=== PATIENT | male | born 1945 | race Caucasian/White ===

== ENCOUNTER 2017-09-15 12:04 | Inpatient (IN) | payer MEDICARE ==
[2017-09-15] MEDS ORDERED: NORMAL SALINE 1000 ML 1,000 ML IV ONE (12:20)
--- NOTE | 2017-09-15 12:21 | ER Document Report ---
ED General - General Stated Complaint: FALL LEG PAIN Time Seen by Provider: 09/15/17 12:18 - HPI Patient complains to provider of: weakness Notes: 72-year-old man states he fell last evening as an apartment was unable to get up. Patient laid on the ground from 10 PM to 11 AM this morning. Patient is covered in feces on arrival. Patient answering questions appropriately just says he is very dry and dehydrated this time. Has been suffering from weakness since June. Seen multiple times by his family doctor. Denies fever chills or other symptoms. - Related Data Allergies/Adverse Reactions: nystatin [Nystatin] Allergy (Verified 07/21/11 22:09) Past Medical History - Social History Smoking Status: Unknown if Ever Smoked Family History: Reviewed & Not Pertinent - Past Medical History Cardiac Medical History: Reports: Hx Coronary Artery Disease, Hx Heart Attack - 2005, Hx Hypercholesterolemia, Hx Hypertension Pulmonary Medical History: Reports: Hx Bronchitis, Hx Pneumonia GI Medical History: Reports: Hx Hiatal Hernia Musculoskeltal Medical History: Reports Hx Arthritis Psychiatric Medical History: Reports: Hx Depression Past Surgical History: Reports: Hx Cardiac Surgery - Quad Bypass, Hx Coronary Artery Bypass Graft, Hx Herniorrhaphy. Denies: Hx Pacemaker - Immunizations Hx Diphtheria, Pertussis, Tetanus Vaccination: Yes Review of Systems - Review of Systems Constitutional: Weakness EENT: No symptoms reported Cardiovascular: No symptoms reported Respiratory: No symptoms reported Gastrointestinal: No symptoms reported Genitourinary: No symptoms reported Male Genitourinary: No symptoms reported Musculoskeletal: No symptoms reported Skin: No symptoms reported Hematologic/Lymphatic: No symptoms reported Neurological/Psychological: No symptoms reported Physical Exam - Vital signs Interpretation: Normal - General General appearance: Appears well, Alert - HEENT Head: Normocephalic, Atraumatic Eyes: Normal Pupils: PERRL - Respiratory Respiratory status: No respiratory distress Chest status: Nontender Breath sounds: Normal Chest palpation: Normal - Cardiovascular Rhythm: Regular Heart sounds: Normal auscultation Murmur: No - Abdominal Inspection: Normal Distension: No distension Bowel sounds: Normal Tenderness: Nontender Organomegaly: No organomegaly - Back Back: Normal, Nontender - Extremities General upper extremity: Normal inspection, Nontender, Normal color, Normal ROM , Normal temperature General lower extremity: Normal inspection, Nontender, Normal color, Normal ROM , Normal temperature, Normal weight bearing. No: Leena's sign - Neurological Neuro grossly intact: Yes Cognition: Normal Orientation: AAOx4 Nikhil Coma Scale Eye Opening: Spontaneous Nikhil Coma Scale Verbal: Oriented Nikhil Coma Scale Motor: Obeys Commands Morning Sun Coma Scale Total: 15 Speech: Normal Motor strength normal: LUE, RUE, LLE, RLE Sensory: Normal - Psychological Associated symptoms: Normal affect, Normal mood - Skin Skin Temperature: Warm Skin Moisture: Dry Skin Color: Normal Course - Re-evaluation Re-evalutation: 09/15/17 12:58 Unfortunate elderly man presents after falling at home. Unable to get up. Patient profoundly tachycardic. Multiple labs drawn at this time, fluid resuscitation started in the emergency department. 09/15/17 17:42 Patient was just inpatient at an outside hospital for 6 days discharge 2 days ago. Since then patient has been very weak. Patient states he was not sent to a rehab center he was sent home. Patient lives at home alone. Does not have anywhere else he can go. Patient laid on the floor last evening for 10 hours was covered in feces this morning. Happily patient's CPK is normal, kidney function normal. Patient has given breathing treatment department. Patient has a troponin that seems mildly elevated but is near his baseline recheck is no elevation. Patient denies any chest pain or shortness of breath. Patient's EKG is no ischemic changes. Patient was admitted to the hospital for the management possible placement. - Laboratory Result Diagrams: 09/15/17 14:55 09/15/17 13:31 Laboratory results interpreted by me: 09/15/17 09/15/17 09/15/17 13:00 13:31 13:31 WBC Seg Neuts % (Manual) Band Neutrophils % Lymphocytes % (Manual) Metamyelocytes % Abs Neuts (Manual) Sodium 135.5 L BUN 24 H Glucose 323 H Ammonia < 8.7 L Creatine Kinase 187 H Albumin 3.3 L Urine Glucose (UA) >=500 H Urine Ketones 20 H Urine Blood SMALL H 09/15/17 14:55 WBC 23.6 H Seg Neuts % (Manual) 81 H Band Neutrophils % 2 L Lymphocytes % (Manual) 10 L Metamyelocytes % 2 H Abs Neuts (Manual) 20.1 H Sodium BUN Glucose Ammonia Creatine Kinase Albumin Urine Glucose (UA) Urine Ketones Urine Blood Discharge - Discharge Clinical Impression: Failure to thrive Qualifiers: Failure to thrive age range: in adult Qualified Code(s): R62.7 - Adult failure to thrive Condition: Stable Disposition: ADMITTED INPATIENT Admitting Provider: Hospitalist - [facility] Admitted: Telemetry
[2017-09-15] MEDS ORDERED: DEXTROSE 5%-NORMAL SALINE 1,000 ML IV ONE (12:59)
--- NOTE | 2017-09-15 13:52 | RADIOLOGY REPORT (SQ) ---
EXAM DESCRIPTION: CHEST SINGLE VIEW COMPLETED DATE/TIME: 09/15/2017 1:09 pm REASON FOR STUDY: ams COMPARISON: July 2011 EXAM PARAMETERS: NUMBER OF VIEWS: One view. TECHNIQUE: Single frontal radiographic view of the chest acquired. RADIATION DOSE: NA LIMITATIONS: None. FINDINGS: LUNGS AND PLEURA: No opacities, masses or pneumothorax. No pleural effusion. Again there is evidence for obstructive lung disease. MEDIASTINUM AND HILAR STRUCTURES: No masses. Contour normal. HEART AND VASCULAR STRUCTURES: Heart normal in size. Normal vasculature. BONES: No acute findings. HARDWARE: Patient is status post median sternotomy. OTHER: No other significant finding. IMPRESSION: No significant interval change. No acute findings. Obstructive lung disease. Other fi ndings as noted above TECHNICAL DOCUMENTATION: JOB ID: [id number] [employer]- All Rights Reserved
[2017-09-15 14:06] LABS: ALANINE AMINOTRANSFERASE 46 U/L (21-72); ALBUMIN 3.3 g/dL (3.5-5.0); ALKALINE PHOSPHATASE 108 U/L (38-126); ANION GAP 11 (5-19); ASPARTATE AMINO TRANSFERASE 29 U/L (17-59); BILIRUBIN,DIRECT 0.4 mg/dL (0.0-0.4); BILIRUBIN,TOTAL 1.2 mg/dL (0.2-1.3); BLOOD UREA NITROGEN 24 mg/dL (7-20); CALCIUM 9.6 mg/dL (8.4-10.2); CARBON DIOXIDE 23 mmol/L (22-30); CHLORIDE 102 mmol/L (98-107); CREATINE KINASE 187 U/L (55-170); GLUCOSE 323 mg/dL (75-110); POTASSIUM 4.5 mmol/L (3.6-5.0); SODIUM 135.5 mmol/L (137-145); TOTAL PROTEIN 6.3 g/dL (6.3-8.2)
[2017-09-15 14:44] LABS: APPEARANCE,URINE CLEAR; BILIRUBIN,URINE NEGATIVE (NEGATIVE); COLOR,URINE YELLOW; GLUCOSE, URINE >=500 mg/dL (NEGATIVE); KETONES,URINE 20 mg/dL (NEGATIVE); LEUKOCYTE ESTERASE,URINE NEGATIVE (NEGATIVE); NITRITE,URINE NEGATIVE (NEGATIVE); PROTEIN,URINE NEGATIVE (NEGATIVE); URINE SPECIFIC GRAVITY 1.036; UROBILINOGEN,URINE NEGATIVE mg/dL (<2.0)
[2017-09-15 15:06] LABS: HEMATOCRIT 43.4 % (37.9-51.0); HEMOGLOBIN 14.5 g/dL (13.5-17.0); MEAN CORPUSCULAR HEMOGLOBIN 31.5 pg (27.0-33.4); MEAN CORPUSCULAR HGB CONC 33.5 g/dL (32.0-36.0); MEAN CORPUSCULAR VOLUME 94 fl (80-97); PLATELET COUNT 295 10^3/uL (150-450); RED BLOOD COUNT 4.62 10^6/uL (4.35-5.55); RED CELL DISTRIBUTION WIDTH 12.9 % (11.5-14.0); WHITE BLOOD COUNT 23.6 10^3/uL (4.0-10.5)
[2017-09-15] MEDS ORDERED: IPRATROPIUM/ALBUTEROL 0.5-2.5 MG/3 ML AMPUL NEB ONE (15:13)
[2017-09-15 15:25] LABS: ABSOLUTE LYMPHOCYTES# (MANUAL) 2.6 10^3/uL (0.5-4.7); ABSOLUTE MONOCYTES # (MANUAL) 0.9 10^3/uL (0.1-1.4); ABSOLUTE NEUTROPHILS# (MANUAL) 20.1 10^3/uL (1.7-8.2); BAND NEUTROPHILS % (MANUAL) 2 % (3-5); BASOPHILS % (MANUAL) 0 % (0-2); EOSINOPHILS % (MANUAL) 0 % (0-6); LYMPHOCYTES % (MANUAL) 10 % (13-45); METAMYELOCYTES % (MANUAL) 2 % (0); MONOCYTES % (MANUAL) 4 % (3-13); PLATELET COMMENT ADEQUATE; POLYCHROMASIA SLIGHT; SEGMENTED NEUTROPHILS % (MAN) 81 % (42-78); TOTAL CELLS COUNTED 100; TOXIC GRANULATION 1+
[2017-09-15 17:48] LABS: A TYPE INFLUENZA AG NEGATIVE (NEGATIVE); B INFLUENZA AG NEGATIVE (NEGATIVE)
[2017-09-15] MEDS ORDERED: ONDANSETRON HCL INJ/PF 4 MG/2 ML SDV IV PRN (18:57)
[2017-09-15] MEDS ORDERED: RINGERS SOLUTION,LACTATED 1,000 ML IV PRN (19:15)
[2017-09-15] MEDS ORDERED: DEXTROSE 50%-WATER 25 GM/50 ML DISP.SYRIN IV PRN ×2 (19:22)
[2017-09-15] MEDS ORDERED: DEXTROSE 40% GEL 15 GM TUBE PO PRN ×2 (19:22)
[2017-09-15] MEDS ORDERED: GLUCAGON,HUMAN RECOMB 1 MG INJ IM PRN (19:22)
--- NOTE | 2017-09-15 19:49 | PDOC H&P ---
History of Present Illness Admission Date/PCP: 09/15/17 17:56 Patient complains of: Weakness found down at home. History of Present Illness: NELY WILLARD is a 72 year old male presents from home after being found down by family members. Patient states he got up to go use the restroom when he became very weak and his legs gave out. Patient states that he laid on the floor from 10:00 until he was found the next following day. Patient reports that he was recently discharged from hospital on Wednesday and since then has been weak. ER reports that patient's sister states that she is not able to care for patient. Patient reports that he does not have a sister that lives close by that is seeing him. There was no one present in the room to confirm either story. Patient reports that he is currently on antibiotics and has been on steroids as well. Patient states that his breathing is at its baseline. Past Medical History Cardiac Medical History: Reports: Congestive Heart Failure, Coronary Artery Disease, Myocardial Infarction - 2006, Hyperlipidema, Hypertension Pulmonary Medical History: Reports: Bronchitis, Chronic Obstructive Pulmonary Disease (COPD), Pneumonia GI Medical History: Reports: Hiatal Hernia Musculoskeltal Medical History: Reports: Arthritis Psychiatric Medical History: Reports: Depression Past Surgical History Past Surgical History: Reports: Coronary Artery Bypass Graft, Herniorrhaphy Denies: Pacemaker Social History Information Source: Patient Lives with: Alone Smoking Status: Unknown if Ever Smoked Frequency of Alcohol Use: None Hx Recreational Drug Use: No Hx Prescription Drug Abuse: No - Advance Directive Resuscitation Status: Full Code Family History Family History: Reviewed & Not Pertinent Parental Family History Reviewed: Yes Children Family History Reviewed: Yes Sibling(s) Family History Reviewed.: Yes Medication/Allergy Allergies/Adverse Reactions: nystatin [Nystatin] Allergy (Verified 07/21/11 22:09) Review of Systems Constitutional: PRESENT: fatigue, weakness Eyes: ABSENT: visual disturbances Ears: ABSENT: hearing changes Cardiovascular: ABSENT: chest pain, dyspnea on exertion, edema, orthropnea, palpitations Respiratory: ABSENT: cough, hemoptysis Gastrointestinal: ABSENT: abdominal pain, constipation, diarrhea, hematemesis, hematochezia, nausea, vomiting Genitourinary: ABSENT: dysuria, hematuria Musculoskeletal: PRESENT: muscle weakness. ABSENT: joint swelling Integumentary: ABSENT: rash, wounds Neurological: ABSENT: abnormal gait, abnormal speech, confusion, dizziness, focal weakness, syncope Psychiatric: ABSENT: anxiety, depression, homidical ideation, suicidal ideation Endocrine: ABSENT: cold intolerance, heat intolerance, polydipsia, polyuria Hematologic/Lymphatic: ABSENT: easy bleeding, easy bruising Physical Exam Vital Signs: Temp Pulse Resp BP Pulse Ox 18 139/87 H 94 09/15/17 19:01 09/15/17 19:01 09/15/17 19:01 General appearance: PRESENT: mild distress, well-developed, well-nourished Head exam: PRESENT: atraumatic, normocephalic Eye exam: PRESENT: conjunctiva pink, EOMI. ABSENT: scleral icterus Ear exam: PRESENT: normal external ear exam Mouth exam: PRESENT: moist, tongue midline Neck exam: ABSENT: carotid bruit, JVD, lymphadenopathy, thyromegaly Respiratory exam: PRESENT: clear to auscultation kimmie, wheezes - Wheezing. ABSENT: rales, rhonchi Cardiovascular exam: PRESENT: RRR. ABSENT: diastolic murmur, rubs, systolic murmur Pulses: PRESENT: normal dorsalis pedis pul Vascular exam: PRESENT: normal capillary refill GI/Abdominal exam: PRESENT: normal bowel sounds, soft. ABSENT: distended, guarding, mass, organolmegaly, rebound, tenderness Rectal exam: PRESENT: deferred Extremities exam: PRESENT: other - Lower extremity strength 3 out of 5 upper extremity strength 4 out of 5. ABSENT: calf tenderness, clubbing, pedal edema Neurological exam: PRESENT: alert, awake, oriented to person, oriented to place , oriented to time, oriented to situation, CN II-XII grossly intact. ABSENT: motor sensory deficit Psychiatric exam: PRESENT: appropriate affect, normal mood. ABSENT: homicidal ideation, suicidal ideation Skin exam: PRESENT: dry, intact, warm. ABSENT: cyanosis, rash Results Impressions: Chest X-Ray 09/15/17 12:20 IMPRESSION: No significant interval change. No acute findings. Obstructive lung disease. Other findings as noted above Assessment & Plan - Diagnosis (1) Debility Is this a current diagnosis for this admission?: Yes Plan: PT OT evaluation (2) Falls Is this a current diagnosis for this admission?: Yes Plan: We will have patient work with PT OT. Have place consult for social workers to work on rehab placement. Check CT of head to make sure there is no intracranial bleed (3) Leukocytosis Is this a current diagnosis for this admission?: Yes Plan: Secondary to steroids: We will monitor patient closely for signs of infection. Patient recently on steroids for COPD exacerbation. Will assess patient during hospital stay to see if patient still needs additional steroids or antibiotics. (4) Hyponatremia Is this a current diagnosis for this admission?: Yes Plan: Likely secondary to dehydration: We will place patient on IV fluids running at 75 cc an hour. Will monitor patient closely for CHF exacerbation. (5) Diarrhea Is this a current diagnosis for this admission?: Yes Plan: We will check C. difficile. (6) Elevated troponin Is this a current diagnosis for this admission?: Yes Plan: We will check 2D echo. Will continue to trend patient's troponins. Patient currently not complaining of chest pain. Will consult cardiology to evaluate patient. (7) DM type 2 (diabetes mellitus, type 2) Is this a current diagnosis for this admission?: Yes Plan: We will check hemoglobin A1c. Will place patient on sliding scale insulin. We will try to obtain patient's home medications. - Time Time Spent: 30 to 50 Minutes
--- NOTE | 2017-09-15 20:43 | RADIOLOGY REPORT (SQ) ---
EXAM DESCRIPTION: CT HEAD WITHOUT COMPLETED DATE/TIME: 09/15/2017 8:17 pm REASON FOR STUDY: Fall COMPARISON: None. TECHNIQUE: Axial images acquired through the brain without intravenous contrast. Images reviewed wi th bone, brain and subdural windows. Images stored on PACS. All CT scanners at this facility use dose modulation, iterative reconstruction, and/or weight based d osing when appropriate to reduce radiation dose to as low as reasonably achievable (ALARA). [facility]: Dose Right [facility]: CareDose [facility]: Dose Right [facility]: Teradose 4D [facility]: OmegaGenesis RADIATION DOSE: CT Rad equipment meets quality standard of care and radiation dose reduction techniq ues were employed. CTDIvol: 64.6 mGy. DLP: 1163 mGy-cm. mGy. LIMITATIONS: None. FINDINGS: VENTRICLES: Normal size and contour. CEREBRUM: No masses. No hemorrhage. No midline shift. No evidence for acute infarction. Normal gra y/white matter differentiation. No areas of low density in the white matter. CEREBELLUM: No masses. No hemorrhage. No alteration of density. No evidence for acute infarction. EXTRAAXIAL SPACES: No fluid collections. No masses. ORBITS AND GLOBE: No intra- or extraconal masses. Normal contour of globe without masses. CALVARIUM: No fracture. PARANASAL SINUSES: No fluid or mucosal thickening. SOFT TISSUES: No mass or hematoma. OTHER: No other significant finding. IMPRESSION: NORMAL BRAIN CT WITHOUT CONTRAST. EVIDENCE OF ACUTE STROKE: NO. COMMENT: Quality ID # [id number]: Final reports with documentation of one or more dose reduction techniques (e.g., Automated exposure control, adjustment of the mA and/or kV according to patient size, use of iterative reconstruction technique) TECHNICAL DOCUMENTATION: JOB ID: [id number] [employer]- All Rights Reserved
[2017-09-15] MEDS: IPRATROPIUM/ALBUTEROL 0.5-2.5 MG/3 ML AMPUL NEB SCH (21:19)
--- NOTE | 2017-09-15 21:26 | EKG REPORT ---
SEVERITY:- ABNORMAL ECG - SINUS TACHYCARDIA VENTRICULAR PREMATURE COMPLEX PROBABLE LEFT ATRIAL ABNORMALITY RIGHT BUNDLE BRANCH BLOCK PROBABLE ANTEROSEPTAL INFARCT, AGE INDETERM : Confirmed by: Marilyn Pereira 15-Sep-2017 21:25:27
[2017-09-15] MEDS ORDERED: ASPIRIN 325 MG TABLET PO ONE (21:52)
[2017-09-15] MEDS ORDERED: LANSOPRAZOLE 30 MG TAB.RAP.DR PO ONE (21:52)
[2017-09-15] MEDS: INSULIN LISPRO 100 UNIT/ML 3 ML VIAL SUBCUT PRN ×2 (22:24→23:47)
[2017-09-15] MEDS: ATORVASTATIN CALCIUM 40 MG TABLET PO SCH (22:27)
[2017-09-15] MEDS: METOPROLOL SUCCINATE 25 MG TAB.SR.24H PO SCH (22:27)
[2017-09-15] MEDS: RANOLAZINE 500 MG TAB.SR.12H PO SCH (22:28)
[2017-09-16 02:49] LABS: APPEARANCE,URINE CLEAR; BILIRUBIN,URINE NEGATIVE (NEGATIVE); COLOR,URINE YELLOW; GLUCOSE, URINE >=500 mg/dL (NEGATIVE); KETONES,URINE TRACE mg/dL (NEGATIVE); LEUKOCYTE ESTERASE,URINE NEGATIVE (NEGATIVE); NITRITE,URINE NEGATIVE (NEGATIVE); PROTEIN,URINE NEGATIVE (NEGATIVE); URINE SPECIFIC GRAVITY 1.033; UROBILINOGEN,URINE NEGATIVE mg/dL (<2.0)
[2017-09-16] MEDS: IPRATROPIUM/ALBUTEROL 0.5-2.5 MG/3 ML AMPUL NEB SCH ×3 (08:45→19:28)
--- NOTE | 2017-09-16 09:19 | EKG REPORT ---
SEVERITY:- ABNORMAL ECG - SINUS RHYTHM RIGHT BUNDLE BRANCH BLOCK : Confirmed by: Marilyn Pereira 16-Sep-2017 09:18:52
[2017-09-16 09:29] LABS: ABSOLUTE BASOPHILS # (AUTO) 0.1 10^3/uL (0.0-0.2); ABSOLUTE LYMPHOCYTES (AUTO) 2.4 10^3/uL (0.5-4.7); ABSOLUTE MONOCYTES (AUTO) 1.3 10^3/uL (0.1-1.4); ABSOLUTE NEUT (AUTO) 14.8 10^3/uL (1.7-8.2); BASOPHILS % (AUTO) 0.3 % (0-2); EOSINOPHILS % (AUTO) 0.1 % (0-6); HEMATOCRIT 40.8 % (37.9-51.0); HEMOGLOBIN 13.7 g/dL (13.5-17.0); LYMPHOCYTES % (AUTO) 12.9 % (13-45); MEAN CORPUSCULAR HEMOGLOBIN 31.6 pg (27.0-33.4); MEAN CORPUSCULAR HGB CONC 33.7 g/dL (32.0-36.0); MEAN CORPUSCULAR VOLUME 94 fl (80-97); PLATELET COUNT 224 10^3/uL (150-450); RED BLOOD COUNT 4.34 10^6/uL (4.35-5.55); RED CELL DISTRIBUTION WIDTH 13.1 % (11.5-14.0); SEGMENTED NEUTROPHILS % (AUTO) 79.7 % (42-78); TOTAL CELLS COUNTED % (AUTO) 100 %; WHITE BLOOD COUNT 18.5 10^3/uL (4.0-10.5)
[2017-09-16 09:53] LABS: ALANINE AMINOTRANSFERASE 48 U/L (21-72); ALBUMIN 2.6 g/dL (3.5-5.0); ALKALINE PHOSPHATASE 64 U/L (38-126); ANION GAP 6 (5-19); ASPARTATE AMINO TRANSFERASE 40 U/L (17-59); BILIRUBIN,DIRECT 0.4 mg/dL (0.0-0.4); BILIRUBIN,TOTAL 1.2 mg/dL (0.2-1.3); BLOOD UREA NITROGEN 19 mg/dL (7-20); CALCIUM 8.7 mg/dL (8.4-10.2); CARBON DIOXIDE 24 mmol/L (22-30); CHLORIDE 103 mmol/L (98-107); CREATINE KINASE 271 U/L (55-170); GLUCOSE 178 mg/dL (75-110); POTASSIUM 4.1 mmol/L (3.6-5.0); SODIUM 133.2 mmol/L (137-145); TOTAL PROTEIN 5.2 g/dL (6.3-8.2)
[2017-09-16] MEDS: METOPROLOL SUCCINATE 25 MG TAB.SR.24H PO SCH ×2 (10:20→21:39)
[2017-09-16] MEDS: RANOLAZINE 500 MG TAB.SR.12H PO SCH ×2 (10:21→21:39)
[2017-09-16] MEDS: ASPIRIN 81 MG TABLET, ENT COATED PO SCH (10:21)
[2017-09-16] MEDS: ACETAMINOPHEN 325 MG TABLET PO PRN ×2 (10:22→20:31)
[2017-09-16] MEDS ORDERED: VANCOMYCIN HCL 0 MG in DEXTROSE 5%-WATER 250 ML IV NR (10:30)
[2017-09-16] MEDS: INSULIN LISPRO 100 UNIT/ML 3 ML VIAL SUBCUT PRN ×3 (12:16→21:40)
--- NOTE | 2017-09-16 12:47 | PDOC PROGRESS REPORT ---
Subjective Progress Note for:: 09/16/17 Subjective:: She states that he is feeling a little better today. Patient states that he is not having problems with breathing. Reason For Visit: DEBILITY,CHRONIC COPD,LEUKOCYTOSIS Physical Exam Vital Signs: Temp Pulse Resp BP Pulse Ox 98.3 F 94 16 125/62 97 09/16/17 07:57 09/16/17 07:57 09/16/17 07:57 09/16/17 07:57 09/16/17 07:57 Intake & Output 09/15/17 09/16/17 09/17/17 06:59 06:59 06:59 Intake Total 1000 Output Total 300 Balance 700 Weight 106.3 kg General appearance: PRESENT: no acute distress, well-developed, well-nourished Head exam: PRESENT: atraumatic, normocephalic Eye exam: PRESENT: conjunctiva pink, EOMI. ABSENT: scleral icterus Ear exam: PRESENT: normal external ear exam Mouth exam: PRESENT: moist, tongue midline Neck exam: ABSENT: carotid bruit, JVD, lymphadenopathy, thyromegaly Respiratory exam: PRESENT: other - Upper airway noise, no wheezing heard no prolonged expiratory phase appreciated no accessory muscle use Cardiovascular exam: PRESENT: tachycardia. ABSENT: diastolic murmur, rubs, systolic murmur Pulses: PRESENT: normal dorsalis pedis pul Vascular exam: PRESENT: normal capillary refill GI/Abdominal exam: PRESENT: normal bowel sounds, soft. ABSENT: distended, guarding, mass, organolmegaly, rebound, tenderness Rectal exam: PRESENT: deferred Extremities exam: ABSENT: calf tenderness, clubbing, pedal edema Neurological exam: PRESENT: alert, awake, oriented to person, oriented to place , oriented to time, oriented to situation, CN II-XII grossly intact. ABSENT: motor sensory deficit Psychiatric exam: PRESENT: appropriate affect, normal mood. ABSENT: homicidal ideation, suicidal ideation Skin exam: PRESENT: dry, intact, warm. ABSENT: cyanosis, rash Results Laboratory Results: 09/16/17 09:09 09/16/17 09:09 09/15/17 09/16/17 09/16/17 22:55 09:09 09:09 WBC 18.5 H RBC 4.34 L Hgb 13.7 Hct 40.8 MCV 94 MCH 31.6 MCHC 33.7 RDW 13.1 Plt Count 224 Seg Neutrophils % 79.7 H Lymphocytes % 12.9 L Monocytes % 7.0 Eosinophils % 0.1 Basophils % 0.3 Absolute Neutrophils 14.8 H Absolute Lymphocytes 2.4 Absolute Monocytes 1.3 Absolute Eosinophils 0.0 Absolute Basophils 0.1 Sodium 133.2 L Potassium 4.1 Chloride 103 Carbon Dioxide 24 Anion Gap 6 BUN 19 Creatinine 0.85 Est GFR ( Amer) > 60 Est GFR (Non-Af Amer) > 60 Glucose 178 H Calcium 8.7 Magnesium 1.5 L Total Bilirubin 1.2 AST 40 ALT 48 Alkaline Phosphatase 64 Total Protein 5.2 L Albumin 2.6 L Urine Color YELLOW Urine Appearance CLEAR Urine pH 5.0 Ur Specific [place] 1.033 Urine Protein NEGATIVE Urine Glucose (UA) >=500 H Urine Ketones TRACE H Urine Blood SMALL H Urine Nitrite NEGATIVE Ur Leukocyte Esterase NEGATIVE Urine WBC (Auto) 3 Urine RBC (Auto) 0 09/15/17 09/16/17 09/16/17 19:42 01:44 09:09 Creatine Kinase Troponin I 0.301 0.279 0.166 09/16/17 09:09 Creatine Kinase 271 H Troponin I Impressions: Head CT 09/15/17 00:00 IMPRESSION: NORMAL BRAIN CT WITHOUT CONTRAST. EVIDENCE OF ACUTE STROKE: NO. Chest X-Ray 09/15/17 12:20 IMPRESSION: No significant interval change. No acute findings. Obstructive lung disease. Other findings as noted above Assessment & Plan - Diagnosis (1) Concern for sepsis Is this a current diagnosis for this admission?: Yes Plan: Gram Positive Cocci in Clusters: Will place pt on Vancomycin. 2 D Echo ordered. (2) Debility Is this a current diagnosis for this admission?: Yes Plan: PT OT evaluation (3) Falls Is this a current diagnosis for this admission?: Yes Plan: We will have patient work with PT OT (4) Leukocytosis Is this a current diagnosis for this admission?: Yes Plan: Patient currently with evidence of bacteremia: Repeat blood cultures have been ordered patient's placed on vancomycin. We will continue to monitor (5) Hyponatremia Is this a current diagnosis for this admission?: Yes Plan: Likely secondary to dehydration and Hyperglycemia: Improving. (6) Diarrhea Is this a current diagnosis for this admission?: Yes Plan: C. difficile is pending. He reports the patient has not had any further episodes of diarrhea.. (7) DM type 2 (diabetes mellitus, type 2) Is this a current diagnosis for this admission?: Yes Plan: Hemoglobin A1c of 11.7. SSI and will place on Lantus 25 units SQ AM. (8) Non-STEMI (non-ST elevated myocardial infarction) Is this a current diagnosis for this admission?: Yes Plan: In setting of sepsis: 2D echo pending. Patient's troponins are trending down. Cardiology is aware and following patient. (9) Hypomagnesemia Is this a current diagnosis for this admission?: Yes Plan: Magnesium replacement. Will check Mag in am - Time Time Spent with patient: 25-34 minutes
--- NOTE | 2017-09-16 12:58 | PDOC CONSULTATION ---
Consultation Consult Date: 09/15/17 Attending physician:: EL PEAÑ Consult reason:: near syncope History of Present Illness Admission Date/PCP: 09/15/17 17:56 Patient complains of: Generalized weakness and fall History of Present Illness: NELY WILLARD is a 72 year old male presents from home after being found down by family members. Patient states he got up to go use the restroom when he became very weak and his legs gave out. Patient states that he laid on the floor from 10:00 until he was found the next following day. Patient reports that he was recently discharged from hospital on Wednesday and since then has been weak. ER reports that patient's sister states that she is not able to care for patient. Patient reports that he does not have a sister that lives close by that is seeing him. There was no one present in the room to confirm either story. Patient reports that he is currently on antibiotics and has been on steroids as well. Patient states that his breathing is at its baseline. This history was reviewed and confirmed. Patient on repeated questioning denied any chest pain but does complain of some back pain. Patient has prior history of myocardial infarction and congestive heart failure. He does claim that he was recently discharged from the hospital and since then been very weak. Patient denied any actual loss of consciousness but felt because of generalized weakness. Patient denied any associated nausea vomiting, diaphoresis or sustained palpitations. Past Medical History Cardiac Medical History: Reports: Congestive Heart Failure, Coronary Artery Disease, Myocardial Infarction - 2005, Hyperlipidema, Hypertension Pulmonary Medical History: Reports: Bronchitis, Chronic Obstructive Pulmonary Disease (COPD), Pneumonia GI Medical History: Reports: Hiatal Hernia Musculoskeltal Medical History: Reports: Arthritis Psychiatric Medical History: Reports: Depression Past Surgical History Past Surgical History: Reports: Coronary Artery Bypass Graft, Herniorrhaphy Denies: Pacemaker Social History Information Source: Patient Lives with: Alone Smoking Status: Unknown if Ever Smoked Frequency of Alcohol Use: None Hx Recreational Drug Use: No Hx Prescription Drug Abuse: No - Advance Directive Resuscitation Status: Full Code Surrogate healthcare decision maker:: Patient's children are the surrogate decision maker Family History Family History: CAD, Hypertension Parental Family History Reviewed: Yes Children Family History Reviewed: Yes Sibling(s) Family History Reviewed.: Yes Medication/Allergy Home Medications: Albuterol Sulfate [Proair Respiclick] 90 mcg IH PRN PRN 09/16/17 Albuterol Sulfate [Proventil Hfa] 2 puff IH QIDP PRN 09/16/17 Albuterol Sulfate [Ventolin 0.083% Neb 2.5 mg/3 ml Ampul] 1 vial NEB PRN PRN 03/26 Apixaban [Eliquis] 5 mg PO DAILY 09/16/17 Atorvastatin Calcium [Lipitor 80 mg Tablet] 40 mg PO QHS 09/16/17 Clopidogrel Bisulfate [Plavix 75 mg Tablet] 75 mg PO DAILY 09/16/17 Fluticasone Propionate [Flonase Nasal [place] 50 Mcg/[place] 16 gm] 1 spray NASL DAILYP PRN 09/16/17 Glipizide [Glocotrol 5 Mg Tablet] 5 mg PO BID 09/16/17 Guaifenesin [Mucinex] 400 mg PO QID 09/16/17 Hydrochlorothiazide [Hydrodiuril 25 mg Tablet] 25 mg PO DAILY 09/16/17 Insulin Detemir [Levemir Flextouch] 25 unit SQ QHS 09/16/17 Lisinopril [Prinivil 40 mg Tablet] 40 mg PO DAILY 09/16/17 Metoprolol Tartrate [Lopressor 50 mg Tablet] 50 mg PO Q12 09/16/17 Polyethylene Glycol 3350 [Miralax Powder 17 gm/Packet] 1 packet PO DAILY Terazosin HCl [Hytrin] 2 mg PO QHS 09/16/17 Allergies/Adverse Reactions: nystatin [Nystatin] Allergy (Verified 07/21/11 22:09) Review of Systems Review of Systems: Please see history of present illness and past medical history as wall. Constitutional: Mild grade fever or chills reported. Head : No recent chronic headaches, recent head injury. Eyes: No recent eye pain, diplopia, redness, discharge, acute visual changes. Ears: No recent chronic ear pain, acute hearing loss, ear discharge. Oral cavity: No recent ulcerations, bleeding, oral cavity discomfort. Neck: No recent acute neck pain reported. Hematologic: No recent easy bruising or bleeding or hematologic malignancy reported. Lymphatic: No recent lymphatic malignancy, chronic lymphadenopathy reported yet Cardiovascular system review: See history of present illness. Respiratory system review: No recent chronic cough, hemoptysis, blood clots in the lungs reported. Mild Shortness of breath on exertion Gastrointestinal system review: Negative for any recent acute or chronic abdominal pain, hematemesis, melena, recent change in bowel habits. Genitourinary system review: No recent acute or chronic hematuria, flank pain, UTI etc. reported. Skin system review: Negative for any recent abnormal bruising, no rash, no pruritus reported. Neurologic: No prior history of strokes, mini strokes, seizure disorder. Psychologic: No history of major psychosis or major depression reported. Musculoskeletal: Minor aches and pains reported. No acute joint swelling reported. Generalized muscle weakness reported Endocrine: No recent polyuria, polydipsia, recent heat or cold intolerance. Physical Exam Vital Signs: Temp Pulse Resp BP Pulse Ox 18 139/87 H 94 09/15/17 19:01 09/15/17 19:01 09/15/17 19:01 Intake & Output 09/14/17 09/15/17 09/16/17 06:59 06:59 06:59 Weight 109.316 kg Exam: GENERAL: well-nourished and in no acute distress. Alert and oriented x3 HEAD: Atraumatic, normocephalic. EYES: Pupils equal round and reactive to light, extraocular movements intact, sclera anicteric, conjunctiva are normal. ENT: TMs normal, nares patent, oropharynx clear without exudates. Moist mucous membranes. No oral ulcerations or bleeding gums noted NECK: supple without lymphadenopathy. Trachea is central. No cervical or axillary lymphadenopathy noted. Carotids are 2+, JVD WNL LUNGS: Respiration seems nonlabored, no significant accessory muscle action noted. Mild bilateral wheezes rales or rhonchi noted. No significant dullness noted on percussion. CHEST: Palpation of the chest wall shows no significant chest wall tenderness. No other significant abnormalities noted. HEART: [place] [employer], No PSH, 1/6 ANATOLY aortic area, 1/6 ward systolic murmur mitral area, no rubs, no gallops. ABDOMEN: Soft, no significant tenderness appreciated, normoactive bowel sounds. No guarding, no rebound. No rigidity noted . No masses appreciated. EXTREMITIES: Pedal pulses are 1-2+, no calf tenderness noted. No clubbing or cyanosis.trace to 1+ pedal edema noted NEUROLOGICAL: Focused neurological exam showed no significant neurologic deficit. Normal speech, no focal weakness appreciated. PSYCH: Normal mood, normal affect. Judgment and insight within normal limits. SKIN: No significant ecchymosis, rash, ulcerations or signs of pruritus noted. MUSCULOSKELETAL EXAM: No significant joint swelling noted. Results Laboratory Results: 09/15/17 19:42 Troponin I 0.301 EKG Comments: sinus rhythm, right bundle branch block pattern. No acute ST-T wave changes noted. Impressions: Head CT 09/15/17 00:00 IMPRESSION: NORMAL BRAIN CT WITHOUT CONTRAST. EVIDENCE OF ACUTE STROKE: NO. Chest X-Ray 09/15/17 12:20 IMPRESSION: No significant interval change. No acute findings. Obstructive lung disease. Other findings as noted above Assessment & Plan - Diagnosis (1) Non-STEMI (non-ST elevated myocardial infarction) Is this a current diagnosis for this admission?: Yes (2) Elevated troponin Is this a current diagnosis for this admission?: Yes (3) DM type 2 (diabetes mellitus, type 2) Qualifiers: Diabetes mellitus complication status: with unspecified complications Diabetes mellitus detention insulin use: unspecified detention insulin use status Qualified Code(s): E11.8 - Type 2 diabetes mellitus with unspecified complications Is this a current diagnosis for this admission?: Yes (4) COPD (chronic obstructive pulmonary disease) Qualifiers: Emphysema type: unspecified Is this a current diagnosis for this admission?: Yes (5) Coronary artery disease Qualifiers: Coronary Disease-Associated Artery/Lesion type: unspecified vessel or lesion type [place] vs. transplanted heart: [place] heart Associated angina: angina presence unspecified Qualified Code(s): I25.10 - Atherosclerotic heart disease of [place] coronary artery without angina pectoris Is this a current diagnosis for this admission?: Yes - Notes Notes: Non-STEMI: Patient has troponin I elevation in the non-STEMI range. This could well be related to sepsis but cannot rule out acute coronary syndrome in view of history of back pain, known history of coronary artery disease having had bypass surgery. At this point will recommend treatment with aspirin, Lovenox, beta blockers, statins. Further ischemia evaluation with be performed when patient is stabilized. Elevated troponin I: Please see discussion under non-STEMI. Coronary artery disease: Patient gives history of coronary artery disease. To be evaluated further when patient is more stable. Currently since sepsis being suspected. Diabetes: Recommend good control of blood sugar. However should avoid any hypoglycemia and hyperglycemia. Patient being expertly managed by primary care M.D/hospitalist COPD: Chest x-ray suggests COPD. Patient noted to have some wheezing. Recommend bronchodilator therapy or continue baseline home therapy. Concerned about sepsis: Patient has generalized weakness. He did feel febrile to my touch. Patient has leukocytosis. Agree with broad-spectrum antibiotics. Agree with blood cultures. - Time Time Spent: 30 to 50 Minutes - CODE STATUS was discussed, patient remains full code. Surrogate decision-maker unchanged. Multiple medical problems were addressed. More than 50% of the time spent coordinating care, discussing management plans with involved caregivers. Management plans discussed with involved personnels. Medical decision making was of moderate to high complexity , patient's has multiple comorbidities. Medications reviewed and adjusted accordingly: Yes
--- NOTE | 2017-09-16 13:01 | PDOC PROGRESS REPORT ---
Subjective Progress Note for:: 09/16/17 Subjective:: Patient seems to be doing somewhat better with gradual improvement. Pt is denying any chest arm or neck discomfort. Patient denying any PND, orthopnea. Patient denied any sustained palpitations, dizziness, syncope, near syncope. Patient denying any fever chills. Patient denying any other significant discomfort. Patient is maintaining sinus rhythm. Cardiac enzymes have trended down. Blood cultures are growing gram-positive cocci. Review of systems: Rest review of systems negative. Medications: Medications have been reviewed. Reason For Visit: DEBILITY,CHRONIC COPD,LEUKOCYTOSIS Physical Exam Vital Signs: Temp Pulse Resp BP Pulse Ox 98.4 F 91 18 114/51 L 94 09/16/17 11:01 09/16/17 11:01 09/16/17 11:01 09/16/17 11:01 09/16/17 11:01 Intake & Output 09/15/17 09/16/17 09/17/17 06:59 06:59 06:59 Intake Total 1000 300 Output Total 300 250 Balance 700 50 Weight 106.3 kg Exam: GENERAL: well-nourished and in no acute distress. Alert and oriented x3, however noted to be very lethargic HEAD: Atraumatic, normocephalic. EYES: Pupils equal round and reactive to light, extraocular movements intact, sclera anicteric, conjunctiva are normal. ENT: TMs normal, nares patent, oropharynx clear without exudates. Moist mucous membranes. No oral ulcerations or bleeding gums noted NECK: supple without lymphadenopathy. Trachea is central. No cervical or axillary lymphadenopathy noted. Carotids are 2+, JVD WNL LUNGS: Respiration seems nonlabored, no significant accessory muscle action noted. Breath sounds clear to auscultation bilaterally and equal noted. No wheezes rales or rhonchi noted. No significant dullness noted on percussion. CHEST: Palpation of the chest wall shows no significant chest wall tenderness. No other significant abnormalities noted. HEART: [place] [employer], No PSH, 1/6 ANATOLY aortic area, 1/6 ward systolic murmur mitral area, no rubs, no gallops. ABDOMEN: Soft, no significant tenderness appreciated, normoactive bowel sounds. No guarding, no rebound. No rigidity noted . No masses appreciated. EXTREMITIES: Pedal pulses are 1-2+, no calf tenderness noted. No clubbing or cyanosis.trace to 1+ pedal edema noted NEUROLOGICAL: Focused neurological exam showed no significant neurologic deficit. Normal speech, no focal weakness appreciated. PSYCH: Normal mood, normal affect. Judgment and insight within normal limits. SKIN: No significant ecchymosis, rash, ulcerations or signs of pruritus noted. MUSCULOSKELETAL EXAM: No significant joint swelling noted. Results Laboratory Results: 09/16/17 09:09 09/16/17 09:09 09/15/17 09/16/17 09/16/17 22:55 09:09 09:09 WBC 18.5 H RBC 4.34 L Hgb 13.7 Hct 40.8 MCV 94 MCH 31.6 MCHC 33.7 RDW 13.1 Plt Count 224 Seg Neutrophils % 79.7 H Lymphocytes % 12.9 L Monocytes % 7.0 Eosinophils % 0.1 Basophils % 0.3 Absolute Neutrophils 14.8 H Absolute Lymphocytes 2.4 Absolute Monocytes 1.3 Absolute Eosinophils 0.0 Absolute Basophils 0.1 Sodium 133.2 L Potassium 4.1 Chloride 103 Carbon Dioxide 24 Anion Gap 6 BUN 19 Creatinine 0.85 Est GFR ( Amer) > 60 Est GFR (Non-Af Amer) > 60 Glucose 178 H Calcium 8.7 Magnesium 1.5 L Total Bilirubin 1.2 AST 40 ALT 48 Alkaline Phosphatase 64 Total Protein 5.2 L Albumin 2.6 L Urine Color YELLOW Urine Appearance CLEAR Urine pH 5.0 Ur Specific [place] 1.033 Urine Protein NEGATIVE Urine Glucose (UA) >=500 H Urine Ketones TRACE H Urine Blood SMALL H Urine Nitrite NEGATIVE Ur Leukocyte Esterase NEGATIVE Urine WBC (Auto) 3 Urine RBC (Auto) 0 09/16/17 11:25 WBC RBC Hgb Hct MCV MCH MCHC RDW Plt Count Seg Neutrophils % Lymphocytes % Monocytes % Eosinophils % Basophils % Absolute Neutrophils Absolute Lymphocytes Absolute Monocytes Absolute Eosinophils Absolute Basophils Sodium Potassium Chloride Carbon Dioxide Anion Gap BUN Creatinine Est GFR ( Amer) Est GFR (Non-Af Amer) Glucose Calcium Magnesium 1.5 L Total Bilirubin AST ALT Alkaline Phosphatase Total Protein Albumin Urine Color Urine Appearance Urine pH Ur Specific [place] Urine Protein Urine Glucose (UA) Urine Ketones Urine Blood Urine Nitrite Ur Leukocyte Esterase Urine WBC (Auto) Urine RBC (Auto) 09/15/17 09/16/17 09/16/17 19:42 01:44 09:09 Creatine Kinase Troponin I 0.301 0.279 0.166 09/16/17 09:09 Creatine Kinase 271 H Troponin I EKG Comments: Shows sinus tachycardia with right bundle branch block pattern. No acute ST segment changes noted. Impressions: Head CT 09/15/17 00:00 IMPRESSION: NORMAL BRAIN CT WITHOUT CONTRAST. EVIDENCE OF ACUTE STROKE: NO. Chest X-Ray 09/15/17 12:20 IMPRESSION: No significant interval change. No acute findings. Obstructive lung disease. Other findings as noted above Assessment & Plan - Diagnosis (1) Non-STEMI (non-ST elevated myocardial infarction) Is this a current diagnosis for this admission?: Yes (2) Elevated troponin Is this a current diagnosis for this admission?: Yes (3) DM type 2 (diabetes mellitus, type 2) Qualifiers: Diabetes mellitus complication status: with unspecified complications Diabetes mellitus halfway insulin use: unspecified halfway insulin use status Qualified Code(s): E11.8 - Type 2 diabetes mellitus with unspecified complications Is this a current diagnosis for this admission?: Yes (4) COPD (chronic obstructive pulmonary disease) Qualifiers: Emphysema type: unspecified Is this a current diagnosis for this admission?: Yes (5) Concern for sepsis Is this a current diagnosis for this admission?: Yes (6) Coronary artery disease Qualifiers: Coronary Disease-Associated Artery/Lesion type: unspecified vessel or lesion type [place] vs. transplanted heart: [place] heart Associated angina: angina presence unspecified Qualified Code(s): I25.10 - Atherosclerotic heart disease of [place] coronary artery without angina pectoris Is this a current diagnosis for this admission?: Yes - Notes Notes: Non-STEMI: Patient has troponin I elevation in the non-STEMI range. This could well be related to sepsis but cannot rule out acute coronary syndrome in view of history of back pain, known history of coronary artery disease having had bypass surgery. At this point will continue treatment with aspirin, Lovenox, beta blockers, statins, Ranexa. Further ischemia evaluation with be performed when patient is stabilized. Patient seems to have been a stabilized. 2D echo has been ordered for risk stratification. Elevated troponin I: Please see discussion under non-STEMI. Coronary artery disease: Further evaluation will be considered after patient has been a stabilized and sepsis healed. Diabetes: Recommend good control of blood sugar. However should avoid any hypoglycemia and hyperglycemia. Patient being expertly managed by primary care M.D/hospitalist COPD: Chest x-ray suggests COPD. Patient noted to have some wheezing. Recommend bronchodilator therapy or continue baseline home therapy. Concerned about sepsis: Patient has generalized weakness. He did feel febrile to my touch. Patient has leukocytosis. Agree with broad-spectrum antibiotics. Blood cultures now showing positive gram-positive cocci. - Time Time with patient: Greater than 35 minutes - CODE STATUS was discussed, patient remains full code. Surrogate decision-maker unchanged. Multiple medical problems were addressed. More than 50% of the time spent coordinating care, discussing management plans with involved caregivers. Management plans discussed with involved personnels. Medical decision making was of moderate to high complexity, patient's has multiple comorbidities. Medications reviewed and adjusted accordingly: Yes
[2017-09-16] MEDS: MAGNESIUM SULFATE/D5W 1 GM/100 ML RTUPB IV SCH ×2 (13:45→16:58)
[2017-09-16] MEDS ORDERED: VANCOMYCIN HCL 1,000 MG in DEXTROSE 5%-WATER 250 ML IV ONE (15:00)
--- NOTE | 2017-09-16 19:24 | XCELERA REPORT ---
[address] [address] Transthoracic Echocardiogram Report Name: NELY WILLARD Age: 72 yrs Gender: Male : 1945 Patient Status: Inpatient Patient Location: [address] [place] [address] Study Date: 09/16/2017 02:49 PM Height: 76 in Weight: 241 lb BSA: 2.4 m2 Procedure: A complete two-dimensional transthoracic echocardiogram was performed (2D, M-mode, spectral and color flow Doppler). The study was technically adequate with some images being suboptimal in quality. Reason For Study: NSTEMI Ordering Physician: MARILYN WONG Performed By: Marlen Chagn Interpretation Summary The left ventricular ejection fraction is normal. There is mild concentric left ventricular hypertrophy. The left ventricle is grossly normal size. Doppler measurements suggest pseudonormalized left ventricular relaxation, which is associated with grade II/IV or mild to moderate diastolic dysfunction There is basal posterior wall akinesis The right ventricular systolic function is normal. There is no mitral valve stenosis. There is a trace amount of mitral regurgitation There is no aortic valve stenosis There is a trace amount of aortic regurgitation There is a trace or physiologic amount of tricuspid regurgitation Tricuspid regurgitation jet envelope not well defined to measure RV systolic pressure accurately. The aortic root is not well visualized but is probably normal size. The inferior vena cava was not visualized There is no pericardial effusion. MMode/2D Measurements & Calculations RVDd: 3.1 cm LVIDd: 5.3 cm FS: 36.2 % Ao root diam: 2.9 cm IVSd: 1.1 cm LVIDs: 3.4 cm EDV(Teich): 136.0 ml LVPWd: 1.1 cm ESV(Teich): 47.0 ml Ao root area: 6.5 cm2 EF(Teich): 65.4 % LA dimension: 3.9 cm Doppler Measurements & Calculations MV E max martha: MV P1/2t max martha: Ao V2 max: LV V1 max P.2 cm/sec 64.7 cm/sec 172.6 cm/sec 4.8 mmHg MV A max martha: MV P1/2t: 73.4 msec Ao max PG: LV V1 max: 102.7 cm/sec 11.9 mmHg 110.1 cm/sec MV E/A: 0.63 MVA(P1/2t): 3.0 cm2 MV dec slope: 258.0 cm/sec2 MV dec time: 0.24 sec PA V2 max: PI end-d martha: 118.0 cm/sec 141.2 cm/sec PA max P.6 mmHg Left Ventricle The left ventricle is grossly normal size. There is mild concentric left ventricular hypertrophy. The left ventricular ejection fraction is normal. Doppler measurements suggest pseudonormalized left ventricular relaxation, which is associated with grade II/IV or mild to moderate diastolic dysfunction. There is basal posterior wall akinesis. Right Ventricle The right ventricle is grossly normal size. There is normal right ventricular wall thickness. The right ventricular systolic function is normal. Atria The right atrium is normal in size. The left atrium is mildly dilated. Interarterial septum not well visualized and not well dopplered. Cannot comment on ASD/PFO presence. Mitral Valve There is mild mitral leaflet calcification. There is no mitral valve stenosis. There is a trace amount of mitral regurgitation. Aortic Valve The aortic valve is mildly calcified. There is no aortic valve stenosis. There is a trace amount of aortic regurgitation. Tricuspid Valve The tricuspid valve is not well visualized, but is grossly normal. There is no tricuspid stenosis. There is a trace or physiologic amount of tricuspid regurgitation. Tricuspid regurgitation jet envelope not well defined to measure RV systolic pressure accurately. Pulmonic Valve The pulmonic valve is not well visualized. Great Vessels The aortic root is not well visualized but is probably normal size. The inferior vena cava was not visualized. Effusions There is no pericardial effusion. : MARILYN WONG > Marilyn Wong
[2017-09-16] MEDS: ATORVASTATIN CALCIUM 40 MG TABLET PO SCH (21:39)
[2017-09-16] MEDS: VANCOMYCIN HCL 1,000 MG in DEXTROSE 5%-WATER 250 ML IV SCH (21:43)
[2017-09-17 05:45] LABS: HEMATOCRIT 39.7 % (37.9-51.0); HEMOGLOBIN 13.5 g/dL (13.5-17.0); MEAN CORPUSCULAR VOLUME 94 fl (80-97); PLATELET COUNT 207 10^3/uL (150-450); RED BLOOD COUNT 4.22 10^6/uL (4.35-5.55); WHITE BLOOD COUNT 15.3 10^3/uL (4.0-10.5)
[2017-09-17] MEDS: VANCOMYCIN HCL 1,000 MG in DEXTROSE 5%-WATER 250 ML IV SCH ×2 (06:07→13:48)
[2017-09-17 06:11] LABS: ALANINE AMINOTRANSFERASE 48 U/L (21-72); ALBUMIN 2.5 g/dL (3.5-5.0); ALKALINE PHOSPHATASE 67 U/L (38-126); ANION GAP 7 (5-19); ASPARTATE AMINO TRANSFERASE 29 U/L (17-59); BILIRUBIN,DIRECT 0.4 mg/dL (0.0-0.4); BILIRUBIN,TOTAL 1.2 mg/dL (0.2-1.3); BLOOD UREA NITROGEN 12 mg/dL (7-20); CALCIUM 8.6 mg/dL (8.4-10.2); CARBON DIOXIDE 25 mmol/L (22-30); CHLORIDE 100 mmol/L (98-107); GLUCOSE 235 mg/dL (75-110); POTASSIUM 3.8 mmol/L (3.6-5.0); SODIUM 131.5 mmol/L (137-145); TOTAL PROTEIN 5.2 g/dL (6.3-8.2)
[2017-09-17] MEDS ORDERED: INSULIN GLARGINE,HUM.REC.ANLOG 1,000 UNIT/10 ML UNIT SUBCUT SCH (08:00)
[2017-09-17] MEDS: IPRATROPIUM/ALBUTEROL 0.5-2.5 MG/3 ML AMPUL NEB SCH ×3 (08:47→21:35)
--- NOTE | 2017-09-17 10:02 | EKG REPORT ---
SEVERITY:- ABNORMAL ECG - SINUS TACHYCARDIA RIGHT BUNDLE BRANCH BLOCK : Confirmed by: Marilyn Pereira 17-Sep-2017 10:01:41
[2017-09-17] MEDS: RANOLAZINE 500 MG TAB.SR.12H PO SCH ×2 (10:33→22:03)
[2017-09-17] MEDS: INSULIN LISPRO 100 UNIT/ML 3 ML VIAL SUBCUT PRN ×3 (10:33→18:09)
[2017-09-17] MEDS: ASPIRIN 81 MG TABLET, ENT COATED PO SCH (10:34)
[2017-09-17] MEDS: METOPROLOL SUCCINATE 25 MG TAB.SR.24H PO SCH ×2 (10:34→22:03)
--- NOTE | 2017-09-17 11:08 | EKG REPORT ---
SEVERITY:- ABNORMAL ECG - SINUS TACHYCARDIA RIGHT BUNDLE BRANCH BLOCK : Confirmed on behalf of: Marilyn Pereira 17-Sep-2017 11:08:05
[2017-09-17] MEDS: ACETAMINOPHEN 325 MG TABLET PO PRN (13:40)
[2017-09-17 14:32] LABS: VANCOMYCIN,TROUGH 7.7 ug/mL (5.0-20.0)
--- NOTE | 2017-09-17 20:14 | PDOC PROGRESS REPORT ---
Subjective Progress Note for:: 09/17/17 Subjective:: Patient seems to be doing significantly better with gradual improvement. Pt is denying any chest arm or neck discomfort. Patient denying any PND, orthopnea. Patient denied any sustained palpitations, dizziness, syncope, near syncope. Patient denying any fever chills. Patient denying any other significant discomfort. Patient is maintaining sinus rhythm. Cardiac enzymes have trended down. Blood cultures are growing gram-positive cocci in clusters. Complete blood count showing less leukocytosis. Review of systems: Rest review of systems negative. Medications: Medications have been reviewed. Reason For Visit: NSTEMI, POSSIBLE SEPSIS Physical Exam Vital Signs: Temp Pulse Resp BP Pulse Ox 99.7 F 85 20 114/47 L 97 09/17/17 16:00 09/17/17 16:00 09/17/17 16:00 09/17/17 16:00 09/17/17 16:00 Intake & Output 09/16/17 09/17/17 09/18/17 06:59 06:59 06:59 Intake Total 1000 1890 546 Output Total 300 2025 1175 Balance 700 -135 -629 Weight 106.3 kg 101.8 kg Exam: GENERAL: well-nourished and in no acute distress. Alert and oriented x3 HEAD: Atraumatic, normocephalic. EYES: Pupils equal round and reactive to light, extraocular movements intact, sclera anicteric, conjunctiva are normal. ENT: TMs normal, nares patent, oropharynx clear without exudates. Moist mucous membranes. No oral ulcerations or bleeding gums noted NECK: supple without lymphadenopathy. Trachea is central. No cervical or axillary lymphadenopathy noted. Carotids are 2+, JVD WNL LUNGS: Respiration seems nonlabored, no significant accessory muscle action noted. Breath sounds clear to auscultation bilaterally and equal noted. No wheezes rales or rhonchi noted. No significant dullness noted on percussion. CHEST: Palpation of the chest wall shows no significant chest wall tenderness. No other significant abnormalities noted. 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 ABDOMEN: Soft, no significant tenderness appreciated, normoactive bowel sounds. No guarding, no rebound. No rigidity noted . No masses appreciated. EXTREMITIES: Pedal pulses are 1-2+, no calf tenderness noted. No clubbing or cyanosis.trace to 1+ pedal edema noted NEUROLOGICAL: Focused neurological exam showed no significant neurologic deficit. Normal speech, no focal weakness appreciated. PSYCH: Normal mood, normal affect. Judgment and insight within normal limits. SKIN: No significant ecchymosis, rash, ulcerations or signs of pruritus noted. MUSCULOSKELETAL EXAM: No significant joint swelling noted. Results Laboratory Results: 09/17/17 04:46 09/17/17 04:46 09/17/17 09/17/17 04:46 04:46 WBC 15.3 H RBC 4.22 L Hgb 13.5 Hct 39.7 MCV 94 MCH 32.0 MCHC 34.0 RDW 13.0 Plt Count 207 Sodium 131.5 L Potassium 3.8 Chloride 100 Carbon Dioxide 25 Anion Gap 7 BUN 12 Creatinine 0.79 Est GFR ( Amer) > 60 Est GFR (Non-Af Amer) > 60 Glucose 235 H Calcium 8.6 Total Bilirubin 1.2 AST 29 ALT 48 Alkaline Phosphatase 67 Total Protein 5.2 L Albumin 2.5 L 09/15/17 09/16/17 09/16/17 19:42 01:44 09:09 Creatine Kinase Troponin I 0.301 0.279 0.166 09/16/17 09:09 Creatine Kinase 271 H Troponin I EKG Comments: Shows sinus tachycardia with right bundle branch block pattern Impressions: Head CT 09/15/17 00:00 IMPRESSION: NORMAL BRAIN CT WITHOUT CONTRAST. EVIDENCE OF ACUTE STROKE: NO. Chest X-Ray 09/15/17 12:20 IMPRESSION: No significant interval change. No acute findings. Obstructive lung disease. 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 transplanted heart: [place] heart Associated angina: angina presence unspecified Qualified Code(s): I25.10 - Atherosclerotic heart disease of [place] coronary artery without angina pectoris Is this a current diagnosis for this admission?: Yes (6) Sepsis Qualifiers: Sepsis type: methicillin resistant Staphylococcus aureus Qualified Code(s) : A41.02 - Sepsis due to Methicillin resistant Staphylococcus aureus Is this a current diagnosis for this admission?: Yes - Notes Notes: Non-STEMI: Most likely related to metabolic reasons and sepsis. However will consider doing a stress test back to discharge once patient general condition improves. Troponin I elevation: Most likely related to sepsis. Coronary artery disease: Currently further evaluation on hold especially ischemia evaluation until sepsis is resolved. Patient currently quite debilitated. Medical regimen to be optimized. Patient's medical regimen reviewed and is noted to be satisfactory. Patient also without any anginal chest discomfort or angina equivalent symptoms. EKG is reviewed shows no new ST segment T-wave changes. Diabetes: Recommend good control but avoid any hypo-or hyperglycemia COPD: Currently stable. Sepsis: Patient blood culture is positive for gram-positive cocci in clusters. Source to be identified. Recommend more blood cultures to consider ruling out continuous bacteremia. - Time Time with patient: Greater than 35 minutes - CODE STATUS was discussed, patient remains full code. Surrogate decision-maker unchanged. Multiple medical problems were addressed. More than 50% of the time spent coordinating care, discussing management plans with involved caregivers. Management plans discussed with involved personnels. Medical decision making was of high complexity, patient's has multiple comorbidities. Medications reviewed and adjusted accordingly: Yes
--- NOTE | 2017-09-17 21:15 | PDOC PROGRESS REPORT ---
Subjective Progress Note for:: 09/17/17 Subjective:: Pt states that he is feeling better. Pt states that he is concerned that he is going to lose his boat. Reason For Visit: NSTEMI, POSSIBLE SEPSIS Physical Exam Vital Signs: Temp Pulse Resp BP Pulse Ox 99.5 F 101 H 22 H 113/37 L 98 09/17/17 19:28 09/17/17 19:28 09/17/17 19:28 09/17/17 19:28 09/17/17 19:28 Intake & Output 09/16/17 09/17/17 09/18/17 06:59 06:59 06:59 Intake Total 1000 1890 546 Output Total 300 2025 1175 Balance 700 135 -629 Weight 106.3 kg 101.8 kg General appearance: PRESENT: no acute distress, well-developed, well-nourished Head exam: PRESENT: atraumatic, normocephalic Eye exam: PRESENT: conjunctiva pink, EOMI. ABSENT: scleral icterus Ear exam: PRESENT: normal external ear exam Mouth exam: PRESENT: moist, tongue midline Neck exam: ABSENT: carotid bruit, JVD, lymphadenopathy, thyromegaly Respiratory exam: PRESENT: clear to auscultation kimmie. ABSENT: rales, rhonchi, wheezes Cardiovascular exam: PRESENT: RRR. ABSENT: diastolic murmur, rubs, systolic murmur Pulses: PRESENT: normal dorsalis pedis pul Vascular exam: PRESENT: normal capillary refill GI/Abdominal exam: PRESENT: normal bowel sounds, soft. ABSENT: distended, guarding, mass, organolmegaly, rebound, tenderness Rectal exam: PRESENT: deferred Extremities exam: PRESENT: full ROM. ABSENT: calf tenderness, clubbing, pedal edema Musculoskeletal exam: PRESENT: full ROM Neurological exam: PRESENT: alert, awake, oriented to person, oriented to place , oriented to time, oriented to situation, CN II-XII grossly intact. ABSENT: motor sensory deficit Psychiatric exam: PRESENT: appropriate affect, normal mood. ABSENT: homicidal ideation, suicidal ideation Skin exam: PRESENT: dry, intact, warm. ABSENT: cyanosis, rash Results Laboratory Results: 09/17/17 04:46 09/17/17 04:46 09/17/17 09/17/17 04:46 04:46 WBC 15.3 H RBC 4.22 L Hgb 13.5 Hct 39.7 MCV 94 MCH 32.0 MCHC 34.0 RDW 13.0 Plt Count 207 Sodium 131.5 L Potassium 3.8 Chloride 100 Carbon Dioxide 25 Anion Gap 7 BUN 12 Creatinine 0.79 Est GFR ( Amer) > 60 Est GFR (Non-Af Amer) > 60 Glucose 235 H Calcium 8.6 Total Bilirubin 1.2 AST 29 ALT 48 Alkaline Phosphatase 67 Total Protein 5.2 L Albumin 2.5 L 09/15/17 09/16/17 09/16/17 19:42 01:44 09:09 Creatine Kinase Troponin I 0.301 0.279 0.166 09/16/17 09:09 Creatine Kinase 271 H Troponin I Impressions: Head CT 09/15/17 00:00 IMPRESSION: NORMAL BRAIN CT WITHOUT CONTRAST. EVIDENCE OF ACUTE STROKE: NO. Chest X-Ray 09/15/17 12:20 IMPRESSION: No significant interval change. No acute findings. Obstructive lung disease. Other findings as noted above Assessment & Plan - Diagnosis (1) Sepsis Is this a current diagnosis for this admission?: Yes Plan: Secondary to Gram Positive Organism: Will continue current antibiotic (2) Debility Is this a current diagnosis for this admission?: Yes Plan: PT/OT (3) Falls Is this a current diagnosis for this admission?: Yes Plan: PT OT (4) Leukocytosis Is this a current diagnosis for this admission?: Yes Plan: Secondary to sepsis: We will continue vancomycin. (5) Hyponatremia Is this a current diagnosis for this admission?: Yes Plan: Likely secondary to dehydration and Hyperglycemia:Will continue to monitor. (6) Diarrhea Is this a current diagnosis for this admission?: Yes Plan: C. difficile is pending. 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 SSI and increase patient's Lantus to 35 units (8) Non-STEMI (non-ST elevated myocardial infarction) Is this a current diagnosis for this admission?: Yes Plan: In setting of sepsis: Patient's troponins are trending down. Cardiology is aware and following patient. (9) Hypomagnesemia Is this a current diagnosis for this admission?: Yes Plan: Magnesium replacement. Will check Mag in am - Time Time Spent with patient: 15-24 minutes
[2017-09-17] MEDS: VANCOMYCIN HCL 1,500 MG in DEXTROSE 5%-WATER 250 ML IV SCH (22:01)
[2017-09-17] MEDS: ATORVASTATIN CALCIUM 40 MG TABLET PO SCH (22:08)
[2017-09-18] MEDS: ACETAMINOPHEN 325 MG TABLET PO PRN ×3 (03:20→17:00)
[2017-09-18] MEDS: VANCOMYCIN HCL 1,500 MG in DEXTROSE 5%-WATER 250 ML IV SCH ×3 (05:53→21:30)
[2017-09-18] MEDS ORDERED: ALBUTEROL SULFATE 0.083% NEB 2.5 MG/3 ML AMPUL NEB PRN (06:25)
[2017-09-18] MEDS ORDERED: IPRATROPIUM/ALBUTEROL 0.5-2.5 MG/3 ML AMPUL NEB ONE (06:45)
[2017-09-18 07:15] LABS: ALANINE AMINOTRANSFERASE 37 U/L (21-72); ALBUMIN 2.7 g/dL (3.5-5.0); ALKALINE PHOSPHATASE 67 U/L (38-126); ANION GAP 9 (5-19); ASPARTATE AMINO TRANSFERASE 22 U/L (17-59); BILIRUBIN,DIRECT 0.2 mg/dL (0.0-0.4); BILIRUBIN,TOTAL 1.5 mg/dL (0.2-1.3); BLOOD UREA NITROGEN 12 mg/dL (7-20); CALCIUM 8.4 mg/dL (8.4-10.2); CARBON DIOXIDE 28 mmol/L (22-30); CHLORIDE 97 mmol/L (98-107); GLUCOSE 211 mg/dL (75-110); POTASSIUM 3.8 mmol/L (3.6-5.0); SODIUM 133.8 mmol/L (137-145); TOTAL PROTEIN 5.3 g/dL (6.3-8.2)
[2017-09-18] MEDS ORDERED: INSULIN GLARGINE,HUM.REC.ANLOG 1,000 UNIT/10 ML UNIT SUBCUT SCH (08:00)
[2017-09-18] MEDS ORDERED: INSULIN GLARGINE,HUM.REC.ANLOG 300 UNIT/3 ML INSULN.PEN SUBCUT SCH ×2 (08:00)
[2017-09-18] MEDS: IPRATROPIUM/ALBUTEROL 0.5-2.5 MG/3 ML AMPUL NEB SCH ×3 (08:31→20:53)
[2017-09-18] MEDS: INSULIN LISPRO 100 UNIT/ML 3 ML VIAL SUBCUT PRN ×4 (08:41→21:37)
[2017-09-18] MEDS: RANOLAZINE 500 MG TAB.SR.12H PO SCH ×2 (10:18→21:32)
[2017-09-18] MEDS: ASPIRIN 81 MG TABLET, ENT COATED PO SCH (10:18)
[2017-09-18] MEDS: METOPROLOL SUCCINATE 25 MG TAB.SR.24H PO SCH ×2 (10:18→21:37)
--- NOTE | 2017-09-18 10:19 | EKG REPORT ---
SEVERITY:- ABNORMAL ECG - SINUS RHYTHM LEFT ATRIAL ABNORMALITY RIGHT BUNDLE BRANCH BLOCK : Confirmed by: Marilyn Pereira 18-Sep-2017 10:18:28
--- NOTE | 2017-09-18 15:24 | PDOC PROGRESS REPORT ---
Subjective Progress Note for:: 09/18/17 Subjective:: Patient continues to feel very fatigued and tired but generally improved since admission. Multiple blood cultures has been positive for MRSA. Pt is denying any chest arm or neck discomfort. Patient denying any PND, orthopnea. Patient denied any sustained palpitations, dizziness, syncope, near syncope. Patient denying any fever chills. Patient denying any other significant discomfort. Patient is maintaining sinus rhythm. Cardiac enzymes have trended down. Blood cultures are growing gram-positive cocci in clusters. Complete blood count showing less leukocytosis. Review of systems: Rest review of systems negative. Medications: Medications have been reviewed. Reason For Visit: NSTEMI, POSSIBLE SEPSIS Physical Exam Vital Signs: Temp Pulse Resp BP Pulse Ox 98.9 F 98 16 103/45 L 89 L 09/18/17 12:13 09/18/17 12:13 09/18/17 12:13 09/18/17 12:13 09/18/17 12:13 Intake & Output 09/17/17 09/18/17 09/19/17 06:59 06:59 06:59 Intake Total 1890 2096 Output Total 2024 1675 Balance -135 421 Weight 101.8 kg 101.8 kg Exam: GENERAL: well-nourished and in no acute distress. Alert and oriented x3 HEAD: Atraumatic, normocephalic. EYES: Pupils equal round and reactive to light, extraocular movements intact, sclera anicteric, conjunctiva are normal. ENT: TMs normal, nares patent, oropharynx clear without exudates. Moist mucous membranes. No oral ulcerations or bleeding gums noted NECK: supple without lymphadenopathy. Trachea is central. No cervical or axillary lymphadenopathy noted. Carotids are 2+, JVD WNL LUNGS: Respiration seems nonlabored, no significant accessory muscle action noted. Breath sounds clear to auscultation bilaterally and equal noted. No wheezes rales or rhonchi noted. No significant dullness noted on percussion. CHEST: Palpation of the chest wall shows no significant chest wall tenderness. No other significant abnormalities noted. 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 ABDOMEN: Soft, no significant tenderness appreciated, normoactive bowel sounds. No guarding, no rebound. No rigidity noted . No masses appreciated. EXTREMITIES: Pedal pulses are 1-2+, no calf tenderness noted. No clubbing or cyanosis.trace to 1+ pedal edema noted NEUROLOGICAL: Focused neurological exam showed no significant neurologic deficit. Normal speech, no focal weakness appreciated. PSYCH: Normal mood, normal affect. Judgment and insight within normal limits. SKIN: No significant ecchymosis, rash, ulcerations or signs of pruritus noted. MUSCULOSKELETAL EXAM: No significant joint swelling noted. Results Laboratory Results: 09/17/17 04:46 09/18/17 06:33 09/18/17 06:33 Sodium 133.8 L Potassium 3.8 Chloride 97 L Carbon Dioxide 28 Anion Gap 9 BUN 12 Creatinine 0.85 Est GFR ( Amer) > 60 Est GFR (Non-Af Amer) > 60 Glucose 211 H Calcium 8.4 Magnesium 1.8 Total Bilirubin 1.5 H AST 22 ALT 37 Alkaline Phosphatase 67 Total Protein 5.3 L Albumin 2.7 L 09/15/17 22:55 Clean Catch Midstream Urine Culture - Final Mrsa (Meth Resis Staph Aureus) 09/15/17 21:29 Blood Blood Culture - Final Mrsa (Meth Resis Staph Aureus) 09/15/17 19:42 Blood Blood Culture - Final Mrsa (Meth Resis Staph Aureus) 09/15/17 09/16/17 09/16/17 19:42 01:44 09:09 Creatine Kinase Troponin I 0.301 0.279 0.166 09/16/17 09:09 Creatine Kinase 271 H Troponin I Impressions: Head CT 09/15/17 00:00 IMPRESSION: NORMAL BRAIN CT WITHOUT CONTRAST. EVIDENCE OF ACUTE STROKE: NO. Chest X-Ray 09/15/17 12:20 IMPRESSION: No significant interval change. No acute findings. Obstructive lung disease. Other findings as noted above Assessment & Plan - Diagnosis (1) Non-STEMI (non-ST elevated myocardial infarction) Is this a current diagnosis for this admission?: Yes (2) Elevated troponin Is this a current diagnosis for this admission?: Yes (3) DM type 2 (diabetes mellitus, type 2) Qualifiers: Diabetes mellitus complication status: with unspecified complications Diabetes mellitus fpc insulin use: unspecified fpc insulin use status Qualified Code(s): E11.8 - Type 2 diabetes mellitus with unspecified complications Is this a current diagnosis for this admission?: Yes (4) COPD (chronic obstructive pulmonary disease) Qualifiers: Emphysema type: unspecified Is this a current diagnosis for this admission?: Yes (5) Sepsis Qualifiers: Sepsis type: methicillin resistant Staphylococcus aureus Qualified Code(s) : A41.02 - Sepsis due to Methicillin resistant Staphylococcus aureus Is this a current diagnosis for this admission?: Yes (6) Coronary artery disease Qualifiers: Coronary Disease-Associated Artery/Lesion type: unspecified vessel or lesion type [place] vs. transplanted heart: [place] heart Associated angina: angina presence unspecified Qualified Code(s): I25.10 - Atherosclerotic heart disease of [place] coronary artery without angina pectoris Is this a current diagnosis for this admission?: Yes - Notes Notes: Sepsis: Patient is now multiple growing multiple blood cultures being positive with MRSA. Exact source of MRSA not clear but patient will need a ID consultation and possibly also an transesophageal echocardiogram. Will obtain additional blood cultures. Troponin I elevation seems to be related to sepsis. Patient does however have history of coronary artery disease. He will benefit from a nuclear stress test but that I believe now can be performed after sepsis is controlled and as an outpatient. Diabetes: Currently being adequately treated COPD: Continue current management plans. Coronary artery disease: Symptomatically stable. Patient to continue with medical management. - Time Time with patient: Greater than 35 minutes - CODE STATUS was discussed, patient remains full code. Surrogate decision-maker unchanged. Multiple medical problems were addressed. More than 50% of the time spent coordinating care, discussing management plans with involved caregivers. Management plans discussed with involved personnels. Medical decision making was of moderate to high complexity, patient's has multiple comorbidities. Medications reviewed and adjusted accordingly: Yes
--- NOTE | 2017-09-18 18:18 | PDOC PROGRESS REPORT ---
Subjective Progress Note for:: 09/18/17 Subjective:: Pt states that he is feeling stronger. Pt complained later during the day that he was having pain. Reason For Visit: NSTEMI, POSSIBLE SEPSIS Physical Exam Vital Signs: Temp Pulse Resp BP Pulse Ox 98.4 F 86 18 104/54 L 95 09/18/17 16:48 09/18/17 16:48 09/18/17 16:48 09/18/17 16:48 09/18/17 16:48 Intake & Output 09/17/17 09/18/17 09/19/17 06:59 06:59 06:59 Intake Total 1890 6 Output Total 2024 1675 Balance -135 421 Weight 101.8 kg 101.8 kg General appearance: PRESENT: no acute distress, well-developed, well-nourished Head exam: PRESENT: atraumatic, normocephalic Eye exam: PRESENT: conjunctiva pink, EOMI. ABSENT: scleral icterus Ear exam: PRESENT: normal external ear exam Mouth exam: PRESENT: moist, tongue midline Neck exam: ABSENT: carotid bruit, JVD, lymphadenopathy, thyromegaly Respiratory exam: PRESENT: clear to auscultation kimmie. ABSENT: rales, rhonchi, wheezes Cardiovascular exam: PRESENT: RRR. ABSENT: diastolic murmur, rubs, systolic murmur Pulses: PRESENT: normal dorsalis pedis pul Vascular exam: PRESENT: normal capillary refill GI/Abdominal exam: PRESENT: normal bowel sounds, soft. ABSENT: distended, guarding, mass, organolmegaly, rebound, tenderness Rectal exam: PRESENT: deferred Extremities exam: PRESENT: full ROM. ABSENT: calf tenderness, clubbing, pedal edema Neurological exam: PRESENT: alert, awake, oriented to person, oriented to place , oriented to time, oriented to situation, CN II-XII grossly intact. ABSENT: motor sensory deficit Psychiatric exam: PRESENT: appropriate affect, normal mood. ABSENT: homicidal ideation, suicidal ideation Skin exam: PRESENT: dry, intact, warm. ABSENT: cyanosis, rash Results Laboratory Results: 09/17/17 04:46 09/18/17 06:33 09/18/17 06:33 Sodium 133.8 L Potassium 3.8 Chloride 97 L Carbon Dioxide 28 Anion Gap 9 BUN 12 Creatinine 0.85 Est GFR ( Amer) > 60 Est GFR (Non-Af Amer) > 60 Glucose 211 H Calcium 8.4 Magnesium 1.8 Total Bilirubin 1.5 H AST 22 ALT 37 Alkaline Phosphatase 67 Total Protein 5.3 L Albumin 2.7 L 09/15/17 22:55 Clean Catch Midstream Urine Culture - Final Mrsa (Meth Resis Staph Aureus) 09/15/17 21:29 Blood Blood Culture - Final Mrsa (Meth Resis Staph Aureus) 09/15/17 19:42 Blood Blood Culture - Final Mrsa (Meth Resis Staph Aureus) 09/15/17 09/16/17 09/16/17 19:42 01:44 09:09 Creatine Kinase Troponin I 0.301 0.279 0.166 09/16/17 09:09 Creatine Kinase 271 H Troponin I Impressions: Head CT 09/15/17 00:00 IMPRESSION: NORMAL BRAIN CT WITHOUT CONTRAST. EVIDENCE OF ACUTE STROKE: NO. Chest X-Ray 09/15/17 12:20 IMPRESSION: No significant interval change. No acute findings. Obstructive lung disease. Other findings as noted above Assessment & Plan - Diagnosis (1) Sepsis Qualifiers: Sepsis type: methicillin resistant Staphylococcus aureus Qualified Code(s) : A41.02 - Sepsis due to Methicillin resistant Staphylococcus aureus Is this a current diagnosis for this admission?: Yes Plan: Secondary to Suspected Endocarditis MRSA present at time of admission most likely obtained from outside hospital: Will continue vancomycin. Contacted pharmacy to address re-dosing for endocarditis. Pt will need TERENCE. Will try to schedule on Wednesday. (2) Debility Is this a current diagnosis for this admission?: Yes Plan: PT/OT (3) Falls Is this a current diagnosis for this admission?: Yes Plan: PT OT (4) Leukocytosis Is this a current diagnosis for this admission?: Yes Plan: Secondary to sepsis: Vancomycin. (5) Hyponatremia Is this a current diagnosis for this admission?: Yes Plan: Likely secondary to dehydration and Hyperglycemia:Will continue to monitor. (6) Diarrhea Is this a current diagnosis for this admission?: Yes Plan: C. difficile is pending. Pt has not had any additional bowel movements. 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 SSI and increase patient's Lantus to 45 units (8) Non-STEMI (non-ST elevated myocardial infarction) Is this a current diagnosis for this admission?: Yes Plan: In setting of sepsis: Patient's troponins are trending down. Cardiology is aware and following patient. (9) Hypomagnesemia Is this a current diagnosis for this admission?: Yes Plan: Replaced. (10) Acute cystitis Is this a current diagnosis for this admission?: Yes Plan: Secondary to MRSA: Most likely due to seeding the urinary tract system. - Time Time Spent with patient: 15-24 minutes
[2017-09-18] MEDS: HYDROCODONE/ACETAMINOPHEN 5-325 MG TABLET PO PRN (18:21)
[2017-09-18 20:45] LABS: APPEARANCE,URINE SLIGHTLY HAZY; BILIRUBIN,URINE NEGATIVE (NEGATIVE); COLOR,URINE YELLOW; GLUCOSE, URINE >=500 mg/dL (NEGATIVE); KETONES,URINE 20 mg/dL (NEGATIVE); LEUKOCYTE ESTERASE,URINE NEGATIVE (NEGATIVE); NITRITE,URINE NEGATIVE (NEGATIVE); PROTEIN,URINE NEGATIVE (NEGATIVE); URINE SPECIFIC GRAVITY 1.013; UROBILINOGEN,URINE NEGATIVE mg/dL (<2.0)
[2017-09-18] MEDS: ATORVASTATIN CALCIUM 40 MG TABLET PO SCH (21:37)
[2017-09-19] MEDS: HYDROCODONE/ACETAMINOPHEN 5-325 MG TABLET PO PRN ×3 (00:28→21:25)
[2017-09-19] MEDS: VANCOMYCIN HCL 1,500 MG in DEXTROSE 5%-WATER 250 ML IV SCH ×3 (05:42→21:26)
[2017-09-19 06:05] LABS: INFLUENZA B AB (SERUM) CF 1:32 (Neg:<1:8)
[2017-09-19] MEDS: INSULIN LISPRO 100 UNIT/ML 3 ML VIAL SUBCUT PRN ×3 (08:20→17:58)
[2017-09-19 08:26] LABS: ALANINE AMINOTRANSFERASE 33 U/L (21-72); ALBUMIN 2.6 g/dL (3.5-5.0); ALKALINE PHOSPHATASE 74 U/L (38-126); ANION GAP 7 (5-19); ASPARTATE AMINO TRANSFERASE 18 U/L (17-59); BILIRUBIN,DIRECT 0.2 mg/dL (0.0-0.4); BILIRUBIN,TOTAL 1.4 mg/dL (0.2-1.3); BLOOD UREA NITROGEN 15 mg/dL (7-20); CALCIUM 8.3 mg/dL (8.4-10.2); CARBON DIOXIDE 27 mmol/L (22-30); CHLORIDE 97 mmol/L (98-107); GLUCOSE 227 mg/dL (75-110); POTASSIUM 3.6 mmol/L (3.6-5.0); SODIUM 131.3 mmol/L (137-145); TOTAL PROTEIN 5.2 g/dL (6.3-8.2)
[2017-09-19] MEDS: IPRATROPIUM/ALBUTEROL 0.5-2.5 MG/3 ML AMPUL NEB SCH ×3 (08:44→20:35)
[2017-09-19] MEDS: METOPROLOL SUCCINATE 25 MG TAB.SR.24H PO SCH ×2 (10:23→21:26)
[2017-09-19] MEDS: ASPIRIN 81 MG TABLET, ENT COATED PO SCH (10:23)
[2017-09-19] MEDS: RANOLAZINE 500 MG TAB.SR.12H PO SCH ×2 (10:23→21:25)
[2017-09-19] MEDS: INSULIN GLARGINE,HUM.REC.ANLOG 300 UNIT/3 ML INSULN.PEN SUBCUT SCH (10:24)
--- NOTE | 2017-09-19 11:15 | PDOC PROGRESS REPORT ---
Subjective Progress Note for:: 09/19/17 Subjective:: Pt states that he is feeling tired. Pt states that he is upset about the blood infection. Pt states that his breathing is good. Received call from [employer] stating that pt has another positive blood culture. Reason For Visit: NSTEMI, POSSIBLE SEPSIS Physical Exam Vital Signs: Temp Pulse Resp BP Pulse Ox 98.5 F 88 20 152/68 H 93 09/19/17 08:02 09/19/17 08:44 09/19/17 08:44 09/19/17 08:02 09/19/17 08:44 Intake & Output 09/18/17 09/19/17 09/20/17 06:59 06:59 06:59 Intake Total 2096 2520 Output Total 1675 975 Balance 421 1545 Weight 101.8 kg 104.6 kg General appearance: PRESENT: no acute distress, well-developed, well-nourished Head exam: PRESENT: atraumatic, normocephalic Eye exam: PRESENT: conjunctiva pink, EOMI. ABSENT: scleral icterus Ear exam: PRESENT: bleeding Mouth exam: PRESENT: dry mucosa Neck exam: ABSENT: carotid bruit, JVD, lymphadenopathy, thyromegaly Respiratory exam: PRESENT: decreased breath sounds. ABSENT: rales, rhonchi, wheezes Cardiovascular exam: PRESENT: RRR. ABSENT: diastolic murmur, rubs, systolic murmur Pulses: PRESENT: normal dorsalis pedis pul Vascular exam: PRESENT: normal capillary refill GI/Abdominal exam: PRESENT: normal bowel sounds, soft. ABSENT: distended, guarding, mass, organolmegaly, rebound, tenderness Rectal exam: PRESENT: deferred Extremities exam: PRESENT: full ROM. ABSENT: calf tenderness, clubbing, pedal edema Neurological exam: PRESENT: alert, awake, oriented to person, oriented to place , oriented to time, oriented to situation, CN II-XII grossly intact. ABSENT: motor sensory deficit Psychiatric exam: PRESENT: appropriate affect, normal mood. ABSENT: homicidal ideation, suicidal ideation Skin exam: PRESENT: dry, intact, warm. ABSENT: cyanosis, rash Results Laboratory Results: 09/17/17 04:46 09/19/17 07:54 09/18/17 09/19/17 10:00 07:54 Sodium 131.3 L Potassium 3.6 Chloride 97 L Carbon Dioxide 27 Anion Gap 7 BUN 15 Creatinine 0.78 Est GFR ( Amer) > 60 Est GFR (Non-Af Amer) > 60 Glucose 227 H Calcium 8.3 L Magnesium 1.8 Total Bilirubin 1.4 H AST 18 ALT 33 Alkaline Phosphatase 74 Total Protein 5.2 L Albumin 2.6 L Urine Color YELLOW Urine Appearance SLIGHTLY HAZY Urine pH 6.0 Ur Specific [place] 1.013 Urine Protein NEGATIVE Urine Glucose (UA) >=500 H Urine Ketones 20 H Urine Blood SMALL H Urine Nitrite NEGATIVE Ur Leukocyte Esterase NEGATIVE Urine WBC (Auto) 11 Urine RBC (Auto) 1 09/16/17 11:35 Blood Blood Culture - Final Mrsa (Meth Resis Staph Aureus) 09/16/17 11:25 Blood Blood Culture - Final Mrsa (Meth Resis Staph Aureus) 09/15/17 22:55 Clean Catch Midstream Urine Culture - Final Mrsa (Meth Resis Staph Aureus) 09/15/17 21:29 Blood Blood Culture - Final Mrsa (Meth Resis Staph Aureus) 09/15/17 19:42 Blood Blood Culture - Final Mrsa (Meth Resis Staph Aureus) 09/15/17 09/16/17 09/16/17 19:42 01:44 09:09 Creatine Kinase Troponin I 0.301 0.279 0.166 09/16/17 09:09 Creatine Kinase 271 H Troponin I Impressions: Head CT 09/15/17 00:00 IMPRESSION: NORMAL BRAIN CT WITHOUT CONTRAST. EVIDENCE OF ACUTE STROKE: NO. Chest X-Ray 09/15/17 12:20 IMPRESSION: No significant interval change. No acute findings. Obstructive lung disease. Other findings as noted above Assessment & Plan - Diagnosis (1) Sepsis Qualifiers: Sepsis type: methicillin resistant Staphylococcus aureus Qualified Code(s) : A41.02 - Sepsis due to Methicillin resistant Staphylococcus aureus Is this a current diagnosis for this admission?: Yes Plan: Secondary to Suspected Endocarditis MRSA present at time of admission most likely obtained from outside hospital: Will continue vancomycin. Contacted pharmacy to address re-dosing for endocarditis. Will call [facility] to see if I am able to schedule TERENCE. (2) Debility Is this a current diagnosis for this admission?: Yes Plan: Pt currently ambulating safely with walker. Will continue to monitor. (3) Falls Is this a current diagnosis for this admission?: Yes Plan: Pt ambulating safely with walker. Will continue to monitor. (4) Leukocytosis Is this a current diagnosis for this admission?: Yes Plan: Secondary to sepsis MRSA: Vancomycin. (5) Hyponatremia Is this a current diagnosis for this admission?: Yes Plan: Likely secondary to dehydration and Hyperglycemia:Will continue to monitor. (6) Diarrhea Is this a current diagnosis for this admission?: Yes Plan: Pt has not had no further episodes of diarrhea. (7) DM type 2 (diabetes mellitus, type 2) Qualifiers: Diabetes mellitus complication status: with unspecified complications Diabetes mellitus detention insulin use: unspecified detention insulin use status Qualified Code(s): E11.8 - Type 2 diabetes mellitus with unspecified complications Is this a current diagnosis for this admission?: Yes Plan: Hemoglobin A1c of 11.7. SSI and increase patient's Lantus to 45 units. Will add mealtime insulin. (8) Non-STEMI (non-ST elevated myocardial infarction) Is this a current diagnosis for this admission?: Yes Plan: In setting of sepsis: Patient's troponins are trending down. Cardiology is aware and following patient. (9) Hypomagnesemia Is this a current diagnosis for this admission?: Yes Plan: Replaced. (10) Acute cystitis Is this a current diagnosis for this admission?: Yes Plan: Secondary to MRSA: Most likely due to seeding the urinary tract system. (11) DVT prophylaxis Is this a current diagnosis for this admission?: Yes Plan: SCDs - Time Time Spent with patient: 25-34 minutes
[2017-09-19] MEDS: INSULIN LISPRO 100 UNIT/ML 3 ML VIAL SUBCUT SCH ×2 (11:31→18:00)
--- NOTE | 2017-09-19 14:05 | PDOC PROGRESS REPORT ---
Subjective Progress Note for:: 09/19/17 Subjective:: Patient continues to feel very fatigued and tired but generally improved since admission. Fever is trending down. Multiple blood cultures has been positive for MRSA. Pt is denying any chest arm or neck discomfort. Patient denying any PND, orthopnea. Patient denied any sustained palpitations, dizziness, syncope, near syncope. Patient denying any fever chills. Patient denying any other significant discomfort. Patient is maintaining sinus rhythm. Cardiac enzymes have trended down. Blood cultures are growing gram-positive cocci in clusters. Multiple blood cultures have been noted to be positive. Complete blood count showing less leukocytosis. Review of systems: Rest review of systems negative. Medications: Medications have been reviewed. Reason For Visit: NSTEMI, POSSIBLE SEPSIS Physical Exam Vital Signs: Temp Pulse Resp BP Pulse Ox 98.2 F 91 18 143/69 H 94 09/19/17 11:17 09/19/17 11:17 09/19/17 11:17 09/19/17 11:17 09/19/17 11:17 Intake & Output 09/18/17 09/19/17 09/20/17 06:59 06:59 06:59 Intake Total 2096 2520 Output Total 1675 975 Balance 421 1545 Weight 101.8 kg 104.6 kg Exam: GENERAL: well-nourished and in no acute distress. Alert and oriented x3 HEAD: Atraumatic, normocephalic. EYES: Pupils equal round and reactive to light, extraocular movements intact, sclera anicteric, conjunctiva are normal. ENT: TMs normal, nares patent, oropharynx clear without exudates. Moist mucous membranes. No oral ulcerations or bleeding gums noted NECK: supple without lymphadenopathy. Trachea is central. No cervical or axillary lymphadenopathy noted. Carotids are 2+, JVD WNL LUNGS: Respiration seems nonlabored, no significant accessory muscle action noted. Few bilateral wheezing noted. Few bibasilar crackles noted. CHEST: Palpation of the chest wall shows no significant chest wall tenderness. No other significant abnormalities noted. 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 ABDOMEN: Soft, no significant tenderness appreciated, normoactive bowel sounds. No guarding, no rebound. No rigidity noted . No masses appreciated. EXTREMITIES: Pedal pulses are 1-2+, no calf tenderness noted. No clubbing or cyanosis.trace to 1+ pedal edema noted NEUROLOGICAL: Focused neurological exam showed no significant neurologic deficit. Normal speech, no focal weakness appreciated. PSYCH: Normal mood, normal affect. Judgment and insight within normal limits. SKIN: No significant ecchymosis, rash, ulcerations or signs of pruritus noted. MUSCULOSKELETAL EXAM: No significant joint swelling noted. Results Laboratory Results: 09/17/17 04:46 09/19/17 07:54 09/18/17 09/19/17 10:00 07:54 Sodium 131.3 L Potassium 3.6 Chloride 97 L Carbon Dioxide 27 Anion Gap 7 BUN 15 Creatinine 0.78 Est GFR ( Amer) > 60 Est GFR (Non-Af Amer) > 60 Glucose 227 H Calcium 8.3 L Magnesium 1.8 Total Bilirubin 1.4 H AST 18 ALT 33 Alkaline Phosphatase 74 Total Protein 5.2 L Albumin 2.6 L Urine Color YELLOW Urine Appearance SLIGHTLY HAZY Urine pH 6.0 Ur Specific [place] 1.013 Urine Protein NEGATIVE Urine Glucose (UA) >=500 H Urine Ketones 20 H Urine Blood SMALL H Urine Nitrite NEGATIVE Ur Leukocyte Esterase NEGATIVE Urine WBC (Auto) 11 Urine RBC (Auto) 1 09/16/17 11:35 Blood Blood Culture - Final Mrsa (Meth Resis Staph Aureus) 09/16/17 11:25 Blood Blood Culture - Final Mrsa (Meth Resis Staph Aureus) 09/15/17 09/16/17 09/16/17 19:42 01:44 09:09 Creatine Kinase Troponin I 0.301 0.279 0.166 09/16/17 09:09 Creatine Kinase 271 H Troponin I Impressions: Head CT 09/15/17 00:00 IMPRESSION: NORMAL BRAIN CT WITHOUT CONTRAST. EVIDENCE OF ACUTE STROKE: NO. Chest X-Ray 09/15/17 12:20 IMPRESSION: No significant interval change. No acute findings. Obstructive lung disease. Other findings as noted above Assessment & Plan - Diagnosis (1) Non-STEMI (non-ST elevated myocardial infarction) Is this a current diagnosis for this admission?: Yes (2) Elevated troponin Is this a current diagnosis for this admission?: Yes (3) DM type 2 (diabetes mellitus, type 2) Qualifiers: Diabetes mellitus complication status: with unspecified complications Diabetes mellitus usp insulin use: unspecified usp insulin use status Qualified Code(s): E11.8 - Type 2 diabetes mellitus with unspecified complications Is this a current diagnosis for this admission?: Yes (4) COPD (chronic obstructive pulmonary disease) Qualifiers: Emphysema type: unspecified Is this a current diagnosis for this admission?: Yes (5) Sepsis Qualifiers: Sepsis type: methicillin resistant Staphylococcus aureus Qualified Code(s) : A41.02 - Sepsis due to Methicillin resistant Staphylococcus aureus Is this a current diagnosis for this admission?: Yes (6) Coronary artery disease Qualifiers: Coronary Disease-Associated Artery/Lesion type: unspecified vessel or lesion type [place] vs. transplanted heart: [place] heart Associated angina: angina presence unspecified Qualified Code(s): I25.10 - Atherosclerotic heart disease of [place] coronary artery without angina pectoris Is this a current diagnosis for this admission?: Yes - Notes Notes: Positive blood cultures: Patient was interviewed in detail today. He does not have any prosthetic valves, pacemaker. He does have cardiac stents. However stents are unlikely to be infected as they become endothelialized. Patient has urine groin growing MRSA. May consider sputum cultures. It has been difficult to arrange a transesophageal echocardiogram but again MRSA would be unlikely to cause endocarditis in [place] valves but is possible, in the absence of IV drug abuse, however patient had indwelling iv canula at prior hospitalzation. Patient has demonstrated continuous bacteremia, therefore has endothelial infection somewhere. Sepsis: Patient is now multiple growing multiple blood cultures being positive with MRSA. Exact source of MRSA not clear but patient will need a ID consultation. Did obtain additional blood cultures yesterday. These results are pending. Patient is however showing clinical improvement. Troponin I elevation seems to be related to sepsis. Patient does however have history of coronary artery disease. He will benefit from a nuclear stress test but that I believe now can be performed after sepsis is controlled and as an outpatient. Diabetes: Currently being adequately treated COPD: Continue current management plans. Coronary artery disease: Symptomatically stable. Patient to continue with medical management. - Time Time with patient: 15-25 minutes - CODE STATUS was discussed, patient remains full code. Surrogate decision-maker unchanged. Multiple medical problems were addressed. More than 50% of the time spent coordinating care, discussing management plans with involved caregivers. Management plans discussed with involved personnels. Medical decision making was of moderate to high complexity , patient's has multiple comorbidities. Medications reviewed and adjusted accordingly: Yes
[2017-09-19] MEDS: ATORVASTATIN CALCIUM 40 MG TABLET PO SCH (21:26)
[2017-09-19] MEDS: ACETAMINOPHEN 325 MG TABLET PO PRN (23:27)
[2017-09-20] MEDS: HYDROCODONE/ACETAMINOPHEN 5-325 MG TABLET PO PRN ×3 (05:50→22:03)
[2017-09-20] MEDS: VANCOMYCIN HCL 1,500 MG in DEXTROSE 5%-WATER 250 ML IV SCH ×2 (05:51→13:36)
[2017-09-20 07:20] LABS: HEMATOCRIT 37.3 % (37.9-51.0); HEMOGLOBIN 12.5 g/dL (13.5-17.0); MEAN CORPUSCULAR HEMOGLOBIN 31.7 pg (27.0-33.4); MEAN CORPUSCULAR HGB CONC 33.6 g/dL (32.0-36.0); MEAN CORPUSCULAR VOLUME 94 fl (80-97); PLATELET COUNT 296 10^3/uL (150-450); RED BLOOD COUNT 3.95 10^6/uL (4.35-5.55); RED CELL DISTRIBUTION WIDTH 13.1 % (11.5-14.0); WHITE BLOOD COUNT 13.4 10^3/uL (4.0-10.5)
[2017-09-20] MEDS: IPRATROPIUM/ALBUTEROL 0.5-2.5 MG/3 ML AMPUL NEB SCH ×3 (08:01→21:12)
[2017-09-20] MEDS: INSULIN GLARGINE,HUM.REC.ANLOG 300 UNIT/3 ML INSULN.PEN SUBCUT SCH (09:30)
[2017-09-20] MEDS: ASPIRIN 81 MG TABLET, ENT COATED PO SCH (09:47)
[2017-09-20] MEDS: METOPROLOL SUCCINATE 25 MG TAB.SR.24H PO SCH ×2 (09:47→22:03)
--- NOTE | 2017-09-20 10:02 | PDOC PROGRESS REPORT ---
Subjective Progress Note for:: 09/20/17 Subjective:: Pt states that he is feeling better. Pt states that last night he was sweating a lot. Pt states that he does not have much of an appetite. Contacted [facility] this morning about scheduling a TER[facility]. Reason For Visit: NSTEMI, POSSIBLE SEPSIS Physical Exam Vital Signs: Temp Pulse Resp BP Pulse Ox 98.3 F 77 18 140/71 H 97 09/20/17 08:04 09/20/17 08:04 09/20/17 08:04 09/20/17 08:04 09/20/17 08:04 Intake & Output 09/19/17 09/20/17 09/21/17 06:59 06:59 06:59 Intake Total 2520 1259 Output Total 975 800 Balance 1545 459 Weight 104.6 kg 104.7 kg General appearance: PRESENT: no acute distress, well-developed, well-nourished Head exam: PRESENT: atraumatic, normocephalic Eye exam: PRESENT: conjunctiva pink, EOMI. ABSENT: scleral icterus Ear exam: PRESENT: normal external ear exam Mouth exam: PRESENT: moist, tongue midline Neck exam: PRESENT: tenderness Respiratory exam: PRESENT: clear to auscultation kimmie. ABSENT: rales, rhonchi, wheezes Cardiovascular exam: PRESENT: RRR. ABSENT: diastolic murmur, rubs, systolic murmur Pulses: PRESENT: normal dorsalis pedis pul Vascular exam: PRESENT: normal capillary refill GI/Abdominal exam: PRESENT: normal bowel sounds, soft. ABSENT: distended, guarding, mass, organolmegaly, rebound, tenderness Rectal exam: PRESENT: deferred Extremities exam: PRESENT: full ROM. ABSENT: calf tenderness, clubbing, pedal edema Musculoskeletal exam: PRESENT: tenderness - + upper thoracic tenderness Neurological exam: PRESENT: alert, awake, oriented to person, oriented to place , oriented to time, oriented to situation, CN II-XII grossly intact. ABSENT: motor sensory deficit Psychiatric exam: PRESENT: appropriate affect, normal mood. ABSENT: homicidal ideation, suicidal ideation Skin exam: PRESENT: dry, intact, warm. ABSENT: cyanosis, rash Results Laboratory Results: 09/20/17 06:37 09/19/17 07:54 09/20/17 06:37 WBC 13.4 H RBC 3.95 L Hgb 12.5 L Hct 37.3 L MCV 94 MCH 31.7 MCHC 33.6 RDW 13.1 Plt Count 296 09/17/17 21:40 Blood Blood Culture - Final Mrsa (Meth Resis Staph Aureus) 09/17/17 20:50 Blood Blood Culture - Final Mrsa (Meth Resis Staph Aureus) 09/16/17 11:35 Blood Blood Culture - Final Mrsa (Meth Resis Staph Aureus) 09/16/17 11:25 Blood Blood Culture - Final Mrsa (Meth Resis Staph Aureus) 09/15/17 09/16/17 09/16/17 19:42 01:44 09:09 Creatine Kinase Troponin I 0.301 0.279 0.166 09/16/17 09:09 Creatine Kinase 271 H Troponin I Impressions: Head CT 09/15/17 00:00 IMPRESSION: NORMAL BRAIN CT WITHOUT CONTRAST. EVIDENCE OF ACUTE STROKE: NO. Chest X-Ray 09/15/17 12:20 IMPRESSION: No significant interval change. No acute findings. Obstructive lung disease. Other findings as noted above Assessment & Plan - Diagnosis (1) Sepsis Qualifiers: Sepsis type: methicillin resistant Staphylococcus aureus Qualified Code(s) : A41.02 - Sepsis due to Methicillin resistant Staphylococcus aureus Is this a current diagnosis for this admission?: Yes Plan: Secondary to Suspected Endocarditis MRSA present at time of admission most likely obtained from outside hospital: Will continue vancomycin. Contacted pharmacy to address re-dosing for endocarditis. Pt scheduled for TERENCE tomorrow at [place] for 9:[address] Bowman will be the [place] performing TERENCE. 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 (3) Back pain Is this a current diagnosis for this admission?: Yes Plan: Due to MRSA bacteremia will order MRI of cervical thoracic and lumbar spine for evaluation of osteo. (4) Debility Is this a current diagnosis for this admission?: Yes Plan: Pt currently ambulating safely with walker. Will continue to monitor. (5) Falls Is this a current diagnosis for this admission?: Yes Plan: Pt ambulating safely with walker. Will continue to monitor. (6) Leukocytosis Is this a current diagnosis for this admission?: Yes Plan: Secondary to sepsis MRSA: Vancomycin. Leukocytosis resolving. (7) Hyponatremia Is this a current diagnosis for this admission?: Yes Plan: Likely secondary to dehydration and Hyperglycemia: Will continue monitor. (8) Diarrhea Is this a current diagnosis for this admission?: Yes Plan: Pt has not had no further episodes of diarrhea. (9) DM type 2 (diabetes mellitus, type 2) Qualifiers: Diabetes mellitus complication status: with unspecified complications Diabetes mellitus senior care insulin use: unspecified christian counselor insulin use status Qualified Code(s): E11.8 - Type 2 diabetes mellitus with unspecified complications Is this a current diagnosis for this admission?: Yes Plan: Hemoglobin A1c of 11.7. SSI, Lantus to 45 units and continue mealtime insulin. (10) Non-STEMI (non-ST elevated myocardial infarction) Is this a current diagnosis for this admission?: Yes Plan: In setting of sepsis: Patient's troponins are trending down. Cardiology is aware and following patient. (11) Hypomagnesemia Is this a current diagnosis for this admission?: Yes Plan: Replaced. (12) Acute cystitis Is this a current diagnosis for this admission?: Yes Plan: Secondary to MRSA: Most likely due to seeding the urinary tract system. (13) DVT prophylaxis Is this a current diagnosis for this admission?: Yes Plan: SCDs - Time Time Spent with patient: 15-24 minutes
[2017-09-20] MEDS ORDERED: DEXTROSE 40% GEL 15 GM TUBE PO PRN ×2 (10:04)
[2017-09-20] MEDS ORDERED: DEXTROSE 50%-WATER 25 GM/50 ML DISP.SYRIN IV PRN ×2 (10:04)
[2017-09-20] MEDS ORDERED: GLUCAGON,HUMAN RECOMB 1 MG INJ SUBCUT PRN (10:04)
[2017-09-20 10:28] LABS: APPEARANCE,URINE CLOUDY; BILIRUBIN,URINE NEGATIVE (NEGATIVE); COLOR,URINE AMBER; GLUCOSE, URINE 150 mg/dL (NEGATIVE); KETONES,URINE TRACE mg/dL (NEGATIVE); LEUKOCYTE ESTERASE,URINE SMALL (NEGATIVE); NITRITE,URINE NEGATIVE (NEGATIVE); PROTEIN,URINE 30 mg/dL (NEGATIVE); URIC ACID CRYSTALS,URINE FEW /HPF; URINE SPECIFIC GRAVITY 1.023
[2017-09-20] MEDS: RANOLAZINE 500 MG TAB.SR.12H PO SCH ×2 (13:14→22:03)
[2017-09-20] MEDS: INSULIN LISPRO 100 UNIT/ML 3 ML VIAL SUBCUT SCH ×2 (13:25→18:57)
[2017-09-20] MEDS: INSULIN LISPRO 100 UNIT/ML 3 ML VIAL SUBCUT PRN ×3 (13:25→22:12)
--- NOTE | 2017-09-20 13:25 | RADIOLOGY REPORT (SQ) ---
EXAM DESCRIPTION: MRI LUMBAR SPINE WITHOUT COMPLETED DATE/TIME: 09/20/2017 12:20 pm REASON FOR STUDY: Osteo I21.4 NON-ST ELEVATION (NSTEMI) MYOCARDIAL INFARCTION COMPARISON: None. TECHNIQUE: Sagittal and Axial imaging includes T1, T2, STIR and gradient echo sequences. Coronal T2/ HASTE imaging. LIMITATIONS: None. FINDINGS: VISUALIZED UPPER ABDOMEN: Limited evaluation. No acute or suspicious findings suggested. SEGMENTATION: No transitional anatomy. The lowest well-developed disc space is labeled L5-S1. ALIGNMENT: Anatomic. VERTEBRAE: Intact. BONE MARROW: Normal. No marrow replacement or reactive changes. DISC SIGNAL: Normal. No significant abnormal signal or loss of height. POSTERIOR ELEMENTS: Generally intact. No pars defect evident. HARDWARE: None in the spine. CORD AND CONUS: Normal in size and signal intensity. Conus at the appropriate level. SOFT TISSUES: No aortic aneurysm seen. No bulky retroperitoneal adenopathy or mass. No paraspinal mas s or fluid. L1-L2: No significant spinal stenosis or exit foraminal stenosis. L2-L3: Mild diffuse posterior bulge, slightly asymmetric to the right. No significant spinal stenosi s or exit foraminal stenosis. L3-L4: Diffuse posterior annular disc bulge. Moderate facet arthropathy. Mild spinal stenosis and e xit foraminal stenosis. L4-L5: Diffuse posterior annular disc bulge. Facet arthropathy, worse on the left. Moderate to caleb re spinal stenosis. Moderate exit foraminal stenosis, worse on the left. L5-S1: Mild diffuse posterior annular disc bulge. Moderate facet arthropathy. Mild spinal stenosis and moderate lateral recess stenosis. No significant exit foraminal stenosis. LOWER THORACIC: Incompletely imaged. No stenosis seen. SACRUM: Visualized upper sacrum intact. OTHER: No other significant findings. IMPRESSION: 1. MULTILEVEL CHRONIC DEGENERATIVE DISC DISEASE AND FACET ARTHROPATHY DESCRIBED. 2. NO MR FINDINGS SUSPICIOUS FOR VERTEBRAL OSTEOMYELITIS. NO EVIDENCE OF SOFT TISSUE ABSCESS OR EPID URAL ABSCESS. TECHNICAL DOCUMENTATION: JOB ID: [id number]- All Rights Reserved
--- NOTE | 2017-09-20 13:27 | RADIOLOGY REPORT (SQ) ---
EXAM DESCRIPTION: MRI THORACIC SPINE WITHOUT COMPLETED DATE/TIME: 09/20/2017 12:20 pm REASON FOR STUDY: concern for osteo I21.4 NON-ST ELEVATION (NSTEMI) MYOCARDIAL INFARCTION COMPARISON: None. TECHNIQUE: Sagittal imaging includes T1, T2, and STIR sequences. LIMITATIONS: None. FINDINGS: LOCALIZER: No worrisome findings. ALIGNMENT: Normal. VERTEBRAE: Intact. BONE MARROW: Normal. No marrow replacement or reactive changes. HARDWARE: None in the spine. CORD: Normal in size and signal intensity. SOFT TISSUES: No soft tissue masses. THORACIC DISCS T1-T12: No significant spinal stenosis or exit foraminal stenosis. LOWER CERVICAL: Incompletely imaged. No significant spinal stenosis or exit foraminal stenosis. UPPER LUMBAR: Incompletely imaged. No significant spinal stenosis or exit foraminal stenosis. OTHER: No other significant finding. IMPRESSION: UNREMARKABLE MRI THORACIC SPINE. NO FINDINGS CONCERNING FOR VERTEBRAL BODY OSTEOMYELITI S. NO GROSS EVIDENCE OF SOFT TISSUE ABSCESS OR EPIDURAL ABSCESS. TECHNICAL DOCUMENTATION: JOB ID: [id number] [employer]- All Rights Reserved
--- NOTE | 2017-09-20 15:15 | RADIOLOGY REPORT (SQ) ---
EXAM DESCRIPTION: MRI CERVICAL SPINE WITHOUT; MRI CERVICAL SPINE WITH COMPLETED DATE/TIME: 09/20/2017 12:20 pm; 09/20/2017 2:24 pm REASON FOR STUDY: Osteo I21.4 NON-ST ELEVATION (NSTEMI) MYOCARDIAL INFARCTION COMPARISON: None. TECHNIQUE: Sagittal and Axial imaging includes T1, T2, STIR and gradient echo sequences. T1 post timo olinium sequences. CONTRAST TYPE AND DOSE: 20 mL Multihance. RENAL FUNCTION: GFR > 60. LIMITATIONS: Motion artifact, particularly on the postcontrast images. FINDINGS: ALIGNMENT: Normal. VERTEBRAE: Intact. BONE MARROW: No marrow replacement. Reactive endplate signal at C4-C5. DISCS: Normal. No significant abnormal signal or loss of height. HARDWARE: None in the spine. CORD AND BASE OF BRAIN: Normal in size and signal intensity. SOFT TISSUES: No soft tissue masses. C1-C2: No significant spinal stenosis. C2-C3: No significant spinal stenosis or exit foraminal stenosis. C3-C4: Minimal posterior disc and osteophyte. Mild uncovertebral spurring. No significant spinal st enosis. Possible mild exit foraminal stenosis. C4-C5: Large diffuse posterior disc bulge, worse on the left side. Marked spinal stenosis with impin gement of the cord. Mild exit foraminal stenosis. C5-C6: Diffuse posterior disc bulge. Moderate spinal stenosis with mild impingement of the cord. Mi ld exit foraminal stenosis. C6-C7: Left paracentral disc bulge. Mild-moderate spinal stenosis with mild impingement of the cord. Mild exit foraminal stenosis. C7-T1: Minimal posterior disc and osteophyte. No significant spinal stenosis or exit foraminal steno sis. UPPER THORACIC: Incompletely imaged. No significant spinal stenosis or exit foraminal stenosis. ENHANCEMENT: No abnormal enhancement. OTHER: No other significant finding. IMPRESSION: 1. DISC DISEASE WITH STENOSIS AND IMPINGEMENT DESCRIBED ABOVE. 2. NO CLEAR-CUT EVIDENCE OF OSTEOMYELITIS OR DISCITIS. NO FOCAL EPIDURAL ABSCESS. COMMENT: None. TECHNICAL DOCUMENTATION: JOB ID: [id number] [email or web address]- All Rights Reserved
--- NOTE | 2017-09-20 19:31 | PDOC PROGRESS REPORT ---
Subjective Progress Note for:: 09/20/17 Subjective:: No new complaints on this patient. He actually claims to be feeling better. He had multiple imaging of the spine since he does complain of significant back pain. Patient continues to feel very fatigued and tired but generally improved since admission. Fever is trending down. Multiple blood cultures has been positive for MRSA. Pt is denying any chest arm or neck discomfort. Patient denying any PND, orthopnea. Patient denied any sustained palpitations, dizziness, syncope, near syncope. Patient denying any fever chills. Patient denying any other significant discomfort. Patient is maintaining sinus rhythm. Cardiac enzymes have trended down. Blood cultures are growing gram-positive cocci in clusters. Multiple blood cultures have been noted to be positive. Blood cultures growing MRSA complete blood count showing less leukocytosis. Review of systems: Rest review of systems negative. Medications: Medications have been reviewed. Reason For Visit: NSTEMI, POSSIBLE SEPSIS Physical Exam Vital Signs: Temp Pulse Resp BP Pulse Ox 98.3 F 94 20 126/80 H 98 09/20/17 08:04 09/20/17 09:45 09/20/17 09:45 09/20/17 09:45 09/20/17 09:45 Intake & Output 09/19/17 09/20/17 09/21/17 06:59 06:59 06:59 Intake Total 2520 1259 1349 Output Total 975 800 Balance 5979 508 5453 Weight 104.6 kg 104.7 kg Exam: GENERAL: well-nourished and in no acute distress. Alert and oriented x3 HEAD: Atraumatic, normocephalic. EYES: Pupils equal round and reactive to light, extraocular movements intact, sclera anicteric, conjunctiva are normal. ENT: TMs normal, nares patent, oropharynx clear without exudates. Moist mucous membranes. No oral ulcerations or bleeding gums noted NECK: supple without lymphadenopathy. Trachea is central. No cervical or axillary lymphadenopathy noted. Carotids are 2+, JVD WNL LUNGS: Respiration seems nonlabored, no significant accessory muscle action noted. Breath sounds clear to auscultation bilaterally and equal noted. No wheezes rales or rhonchi noted. No significant dullness noted on percussion. CHEST: Palpation of the chest wall shows no significant chest wall tenderness. No other significant abnormalities noted. HEART: [place] [employer], No PSH, 1/6 ANATOLY aortic area, 1/6 ward systolic murmur mitral area, no rubs, no gallops. ABDOMEN: Soft, no significant tenderness appreciated, normoactive bowel sounds. No guarding, no rebound. No rigidity noted . No masses appreciated. EXTREMITIES: Pedal pulses are 1-2+, no calf tenderness noted. No clubbing or cyanosis.trace to 1+ pedal edema noted NEUROLOGICAL: Focused neurological exam showed no significant neurologic deficit. Normal speech, no focal weakness appreciated. PSYCH: Normal mood, normal affect. Judgment and insight within normal limits. SKIN: No significant ecchymosis, rash, ulcerations or signs of pruritus noted. MUSCULOSKELETAL EXAM: No significant joint swelling noted. Results Laboratory Results: 09/20/17 06:37 09/19/17 07:54 09/20/17 09/20/17 06:37 09:37 WBC 13.4 H RBC 3.95 L Hgb 12.5 L Hct 37.3 L MCV 94 MCH 31.7 MCHC 33.6 RDW 13.1 Plt Count 296 Urine Color GOYO Urine Appearance CLOUDY Urine pH 5.0 Ur Specific [place] 1.023 Urine Protein 30 H Urine Glucose (UA) 150 H Urine Ketones TRACE H Urine Blood NEGATIVE Urine Nitrite NEGATIVE Ur Leukocyte Esterase SMALL H Urine WBC (Auto) 16 Urine RBC (Auto) 12 09/17/17 21:40 Blood Blood Culture - Final Mrsa (Meth Resis Staph Aureus) 09/17/17 20:50 Blood Blood Culture - Final Mrsa (Meth Resis Staph Aureus) 09/15/17 09/16/17 09/16/17 19:42 01:44 09:09 Creatine Kinase Troponin I 0.301 0.279 0.166 09/16/17 09:09 Creatine Kinase 271 H Troponin I EKG Comments: Telemetry shows sinus rhythm without any sustained tacky or bradycardia arrhythmias. Impressions: Head CT 09/15/17 00:00 IMPRESSION: NORMAL BRAIN CT WITHOUT CONTRAST. EVIDENCE OF ACUTE STROKE: NO. Chest X-Ray 09/15/17 12:20 IMPRESSION: No significant interval change. No acute findings. Obstructive lung disease. Other findings as noted above Cervical Spine MRI 09/20/17 00:00 IMPRESSION: 1. DISC DISEASE WITH STENOSIS AND IMPINGEMENT DESCRIBED ABOVE. 2. NO CLEAR-CUT EVIDENCE OF OSTEOMYELITIS OR DISCITIS. NO FOCAL EPIDURAL ABSCESS. Lumbar Spine MRI 09/20/17 00:00 IMPRESSION: 1. MULTILEVEL CHRONIC DEGENERATIVE DISC DISEASE AND FACET ARTHROPATHY DESCRIBED. 2. NO MR FINDINGS SUSPICIOUS FOR VERTEBRAL OSTEOMYELITIS. NO EVIDENCE OF SOFT TISSUE ABSCESS OR EPIDURAL ABSCESS. Thoracic Spine MRI 09/20/17 00:00 IMPRESSION: UNREMARKABLE MRI THORACIC SPINE. NO FINDINGS CONCERNING FOR VERTEBRAL BODY OSTEOMYELITIS. NO GROSS EVIDENCE OF SOFT TISSUE ABSCESS OR EPIDURAL ABSCESS. Assessment & Plan - Diagnosis (1) Non-STEMI (non-ST elevated myocardial infarction) Is this a current diagnosis for this admission?: Yes (2) Elevated troponin Is this a current diagnosis for this admission?: Yes (3) DM type 2 (diabetes mellitus, type 2) Qualifiers: Diabetes mellitus complication status: with unspecified complications Diabetes mellitus exterminator helper insulin use: unspecified chcf insulin use status Qualified Code(s): E11.8 - Type 2 diabetes mellitus with unspecified complications Is this a current diagnosis for this admission?: Yes (4) COPD (chronic obstructive pulmonary disease) Qualifiers: Emphysema type: unspecified Is this a current diagnosis for this admission?: Yes (5) Sepsis Qualifiers: Sepsis type: methicillin resistant Staphylococcus aureus Qualified Code(s) : A41.02 - Sepsis due to Methicillin resistant Staphylococcus aureus Is this a current diagnosis for this admission?: Yes (6) Coronary artery disease Qualifiers: Coronary Disease-Associated Artery/Lesion type: unspecified vessel or lesion type [place] vs. transplanted heart: [place] heart Associated angina: angina presence unspecified Qualified Code(s): I25.10 - Atherosclerotic heart disease of [place] coronary artery without angina pectoris Is this a current diagnosis for this admission?: Yes - Notes Notes: Positive blood cultures: Agree there is high probability that patient has underlying endocarditis. It has been difficult to arrange a transesophageal echocardiogram. Agree with imaging studies ordered by the hospitalist. Sepsis: Patient is now multiple growing multiple blood cultures being positive with MRSA. Exact source of MRSA not clear but patient will need a ID consultation. Did obtain additional blood cultures yesterday. These results are again growing gram-positive cocci in clusters. Patient is however showing clinical improvement. Troponin I elevation seems to be related to sepsis. Patient does however have history of coronary artery disease. He will benefit from a nuclear stress test but that I believe now can be performed after sepsis is controlled and as an outpatient. Diabetes: Currently being adequately treated COPD: Continue current management plans. Coronary artery disease: Symptomatically stable. Patient to continue with medical management. - Time Time with patient: 15-25 minutes - CODE STATUS was discussed, patient remains full code. Surrogate decision-maker unchanged. Multiple medical problems were addressed. More than 50% of the time spent coordinating care, discussing management plans with involved caregivers. Management plans discussed with involved personnels. Medical decision making was of moderate to high complexity , patient's has multiple comorbidities. Medications reviewed and adjusted accordingly: Yes
[2017-09-20] MEDS: ATORVASTATIN CALCIUM 40 MG TABLET PO SCH (22:03)
[2017-09-21] MEDS ORDERED: VANCOMYCIN HCL 1,500 MG in DEXTROSE 5%-WATER 250 ML IV SCH ×2 (02:00→14:00)
[2017-09-21 06:39] LABS: ABSOLUTE BASOPHILS # (AUTO) 0.1 10^3/uL (0.0-0.2); ABSOLUTE EOSINOPHILS # (AUTO) 0.2 10^3/uL (0.0-0.6); ABSOLUTE LYMPHOCYTES (AUTO) 2.5 10^3/uL (0.5-4.7); ABSOLUTE MONOCYTES (AUTO) 0.9 10^3/uL (0.1-1.4); ABSOLUTE NEUT (AUTO) 8.1 10^3/uL (1.7-8.2); BASOPHILS % (AUTO) 0.6 % (0-2); EOSINOPHILS % (AUTO) 1.7 % (0-6); HEMATOCRIT 36.7 % (37.9-51.0); HEMOGLOBIN 12.4 g/dL (13.5-17.0); LYMPHOCYTES % (AUTO) 21.1 % (13-45); MEAN CORPUSCULAR HEMOGLOBIN 31.7 pg (27.0-33.4); MEAN CORPUSCULAR HGB CONC 33.7 g/dL (32.0-36.0); MEAN CORPUSCULAR VOLUME 94 fl (80-97); MONOCYTES % (AUTO) 7.5 % (3-13); PLATELET COUNT 377 10^3/uL (150-450); RED BLOOD COUNT 3.91 10^6/uL (4.35-5.55); SEGMENTED NEUTROPHILS % (AUTO) 69.1 % (42-78); TOTAL CELLS COUNTED % (AUTO) 100 %; WHITE BLOOD COUNT 11.8 10^3/uL (4.0-10.5)
[2017-09-21 06:46] LABS: PROTHROMBIN TIME 13.9 SEC (11.4-15.4)
[2017-09-21 06:55] LABS: ALANINE AMINOTRANSFERASE 42 U/L (21-72); ALBUMIN 2.6 g/dL (3.5-5.0); ALKALINE PHOSPHATASE 75 U/L (38-126); ANION GAP 8 (5-19); ASPARTATE AMINO TRANSFERASE 26 U/L (17-59); BILIRUBIN,DIRECT 0.2 mg/dL (0.0-0.4); BILIRUBIN,TOTAL 1.1 mg/dL (0.2-1.3); BLOOD UREA NITROGEN 13 mg/dL (7-20); CALCIUM 8.7 mg/dL (8.4-10.2); CARBON DIOXIDE 28 mmol/L (22-30); CHLORIDE 96 mmol/L (98-107); GLUCOSE 113 mg/dL (75-110); POTASSIUM 3.9 mmol/L (3.6-5.0); SODIUM 132.2 mmol/L (137-145); TOTAL PROTEIN 5.6 g/dL (6.3-8.2)
[2017-09-21] MEDS: IPRATROPIUM/ALBUTEROL 0.5-2.5 MG/3 ML AMPUL NEB SCH ×3 (07:44→22:34)
[2017-09-21] MEDS: HYDROCODONE/ACETAMINOPHEN 5-325 MG TABLET PO PRN ×3 (08:05→22:02)
[2017-09-21] MEDS: INSULIN GLARGINE,HUM.REC.ANLOG 300 UNIT/3 ML INSULN.PEN SUBCUT SCH (08:09)
[2017-09-21] MEDS: INSULIN LISPRO 100 UNIT/ML 3 ML VIAL SUBCUT SCH ×3 (08:09→16:44)
--- NOTE | 2017-09-21 13:37 | PDOC PROGRESS REPORT ---
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 The patient was unable to get up from the floor for several hours. 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 The patient was transferred to [place] today for an outpatient TERENCE and will return to our facility following the procedure. The patient is seen on morning rounds. He is found sitting up to the edge of the bed on room air. He complains of mid thoracic back pain and asks about his MRI results from yesterday. He complains of generalized weakness and malaise. He does tell me that he was recently admitted to [facility] for influenza. He also briefly discusses despondency with regards to his relationship with his adult son. Reason For Visit: NSTEMI, POSSIBLE SEPSIS Physical Exam Vital Signs: Temp Pulse Resp BP Pulse Ox 99.3 F 92 18 116/63 93 09/21/17 07:14 09/21/17 07:44 09/21/17 07:44 09/21/17 07:14 09/21/17 07:44 Intake & Output 09/20/17 09/21/17 09/22/17 06:59 06:59 06:59 Intake Total 1259 3786 Output Total 800 Balance 459 3786 Weight 104.7 kg 106.3 kg General appearance: PRESENT: no acute distress, well-developed, well-nourished Head exam: PRESENT: atraumatic, normocephalic Eye exam: PRESENT: conjunctiva pink, EOMI, PERRLA. ABSENT: scleral icterus Ear exam: PRESENT: normal external ear exam Mouth exam: PRESENT: moist, tongue midline Neck exam: ABSENT: carotid bruit, JVD, lymphadenopathy, thyromegaly Respiratory exam: PRESENT: clear to auscultation kimmie. ABSENT: rales, rhonchi, wheezes Cardiovascular exam: PRESENT: RRR. ABSENT: diastolic murmur, rubs, systolic murmur Pulses: PRESENT: normal dorsalis pedis pul Vascular exam: PRESENT: normal capillary refill GI/Abdominal exam: PRESENT: normal bowel sounds, soft. ABSENT: distended, guarding, mass, organolmegaly, rebound, tenderness Rectal exam: PRESENT: deferred Extremities exam: PRESENT: full ROM. ABSENT: calf tenderness, clubbing, pedal edema Neurological exam: PRESENT: alert, awake, oriented to person, oriented to place , oriented to time, oriented to situation, CN II-XII grossly intact. ABSENT: motor sensory deficit Psychiatric exam: PRESENT: flat affect, normal mood. ABSENT: homicidal ideation , suicidal ideation Skin exam: PRESENT: dry, intact, warm. ABSENT: cyanosis, rash Results Laboratory Results: 09/21/17 05:28 09/21/17 05:28 09/21/17 09/21/17 05:28 05:28 WBC 11.8 H RBC 3.91 L Hgb 12.4 L Hct 36.7 L MCV 94 MCH 31.7 MCHC 33.7 RDW 13.0 Plt Count 377 Seg Neutrophils % 69.1 Lymphocytes % 21.1 Monocytes % 7.5 Eosinophils % 1.7 Basophils % 0.6 Absolute Neutrophils 8.1 Absolute Lymphocytes 2.5 Absolute Monocytes 0.9 Absolute Eosinophils 0.2 Absolute Basophils 0.1 Sodium 132.2 L Potassium 3.9 Chloride 96 L Carbon Dioxide 28 Anion Gap 8 BUN 13 Creatinine 0.86 Est GFR ( Amer) > 60 Est GFR (Non-Af Amer) > 60 Glucose 113 H Calcium 8.7 Total Bilirubin 1.1 AST 26 ALT 42 Alkaline Phosphatase 75 Total Protein 5.6 L Albumin 2.6 L 09/18/17 19:25 Blood Blood Culture - Final Mrsa (Meth Resis Staph Aureus) 09/18/17 17:25 Blood Blood Culture - Final Mrsa (Meth Resis Staph Aureus) 09/17/17 21:40 Blood Blood Culture - Final Mrsa (Meth Resis Staph Aureus) 09/17/17 20:50 Blood Blood Culture - Final Mrsa (Meth Resis Staph Aureus) 09/15/17 09/16/17 09/16/17 19:42 01:44 09:09 Creatine Kinase Troponin I 0.301 0.279 0.166 09/16/17 09:09 Creatine Kinase 271 H Troponin I Impressions: Head CT 09/15/17 00:00 IMPRESSION: NORMAL BRAIN CT WITHOUT CONTRAST. EVIDENCE OF ACUTE STROKE: NO. Chest X-Ray 09/15/17 12:20 IMPRESSION: No significant interval change. No acute findings. Obstructive lung disease. Other findings as noted above Cervical Spine MRI 09/20/17 00:00 IMPRESSION: 1. DISC DISEASE WITH STENOSIS AND IMPINGEMENT DESCRIBED ABOVE. 2. NO CLEAR-CUT EVIDENCE OF OSTEOMYELITIS OR DISCITIS. NO FOCAL EPIDURAL ABSCESS. Lumbar Spine MRI 09/20/17 00:00 IMPRESSION: 1. MULTILEVEL CHRONIC DEGENERATIVE DISC DISEASE AND FACET ARTHROPATHY DESCRIBED. 2. NO MR FINDINGS SUSPICIOUS FOR VERTEBRAL OSTEOMYELITIS. NO EVIDENCE OF SOFT TISSUE ABSCESS OR EPIDURAL ABSCESS. Thoracic Spine MRI 09/20/17 00:00 IMPRESSION: UNREMARKABLE MRI THORACIC SPINE. NO FINDINGS CONCERNING FOR VERTEBRAL BODY OSTEOMYELITIS. NO GROSS EVIDENCE OF SOFT TISSUE ABSCESS OR EPIDURAL ABSCESS. Assessment & Plan - Diagnosis (1) Sepsis Qualifiers: Sepsis type: methicillin resistant Staphylococcus aureus Qualified Code(s) : A41.02 - Sepsis due to Methicillin resistant Staphylococcus aureus Is this a current diagnosis for this admission?: Yes Plan: Clinically the patient is improved; he has been afebrile for 36 hours, with normal heart rate and blood pressure. Leukocytosis is trending down. Sepsis is secondary to suspected endocarditis that was present at the time of admission. Blood cultures (09/20/17): Pending Blood cultures (09/19/17): Gram-positive cocci in clusters 8 additional sets of blood cultures demonstrating MRSA; Vancomycin sensitive with VIVIEN of 1 Urine culture: MRSA MRI of the cervical, thoracic, and lumbar spine rule out potential osteomyelitis. Will continue Vancomycin. The patient is being transferred to [place] today for an outpatient TERENCE for evaluation of suspected endocarditis. (2) Endocarditis Qualifiers: Chronicity: unspecified Is this a current diagnosis for this admission?: Yes Plan: Suspected endocarditis; TERENCE was completed today, results are not yet available. Cultures as above. Continue vancomycin. (3) Acute cystitis Is this a current diagnosis for this admission?: Yes Plan: Secondary to MRSA bacteremia; most likely due to seeding to the urinary tract system. Continue antibiotic therapy as above. (4) Back pain Is this a current diagnosis for this admission?: Yes Plan: Cervical, thoracic, and lumbar spine MRIs do demonstrate degenerative disc disease with bulging disc at C5/C6 and spinal stenosis of C5 through C7, unremarkable thoracic spine, and bulging disc of L2/L3, bulging disc L3/L4 with mild spinal stenosis, bulging disc L4/L5 with moderate to severe spinal stenosis , bulging disc L5/S1 with mild spinal stenosis. No evidence of osteomyelitis. We will continue as needed hydrocodone and acetaminophen for pain. Will add Lidoderm patches. (5) COPD (chronic obstructive pulmonary disease) Qualifiers: Emphysema type: unspecified Is this a current diagnosis for this admission?: Yes Plan: Stable, no acute exacerbation present. Continue albuterol and DuoNeb treatments as needed. (6) DM type 2 (diabetes mellitus, type 2) Qualifiers: Diabetes mellitus complication status: with unspecified complications Diabetes mellitus jail insulin use: unspecified jail insulin use status Qualified Code(s): E11.8 - Type 2 diabetes mellitus with unspecified complications Is this a current diagnosis for this admission?: Yes Plan: Hemoglobin A1c 11.7% The patient is placed on a consistent carb diet with Accu-Cheks before meals and at bedtime. Lantus 45 units daily with Humalog for sliding scale coverage. (7) DVT prophylaxis Is this a current diagnosis for this admission?: Yes Plan: SCDs (8) Debility Is this a current diagnosis for this admission?: Yes Plan: Following recurrent hospitalizations and subsequent fall at home. The patient is currently ambulating safely with a walker. We will continue to monitor and provide for patient safety. Fall precautions. (9) Falls Is this a current diagnosis for this admission?: Yes Plan: As above. Will ask PT/OT to evaluate and treat. (10) Hypomagnesemia Is this a current diagnosis for this admission?: Yes Plan: Replete. (11) Hyponatremia Is this a current diagnosis for this admission?: Yes Plan: Likely secondary to dehydration and hyperglycemia; stable at 132. We will continue to monitor. (12) Leukocytosis Is this a current diagnosis for this admission?: Yes Plan: Secondary to MRSA sepsis. Leukocytosis is trending down. Blood cultures and antibiotics as above. (13) Non-STEMI (non-ST elevated myocardial infarction) Is this a current diagnosis for this admission?: Yes Plan: Type II non-STEMI GA in the setting of sepsis. Troponins are trending down. Cardiology has been consulted; appreciate their evaluation and recommendations. (14) Diarrhea Is this a current diagnosis for this admission?: Yes Plan: Resolved. - Time Time Spent with patient: 25-34 minutes Medications reviewed and adjusted accordingly: Yes - Inpatient Certification Based on my medical assessment, after consideration of the patient's comorbidities, presenting symptoms, or acuity I expect that the services needed warrant INPATIENT care.: Yes I certify that my determination is in accordance with my understanding of Medicare's requirements for reasonable and necessary INPATIENT services [42 CFR 412.3e].: Yes Medical Necessity: Need for IV Antibiotics
[2017-09-21] MEDS: ASPIRIN 81 MG TABLET, ENT COATED PO SCH (14:07)
[2017-09-21] MEDS: METOPROLOL SUCCINATE 25 MG TAB.SR.24H PO SCH ×2 (14:07→22:03)
[2017-09-21] MEDS: RANOLAZINE 500 MG TAB.SR.12H PO SCH ×2 (14:12→22:03)
[2017-09-21] MEDS ORDERED: LIDOCAINE 5% (700 MG) TRANSDERMAL ADH..PATCH TP ONE (15:00)
[2017-09-21] MEDS: INSULIN LISPRO 100 UNIT/ML 3 ML VIAL SUBCUT PRN (16:44)
--- NOTE | 2017-09-21 18:47 | Progress Note ---
Provider Note Provider Note: t 09/21 7pm Repeat cultures still positive for MRSA Change antibiotics to daptomycin
--- NOTE | 2017-09-21 19:51 | PDOC PROGRESS REPORT ---
Subjective Progress Note for:: 09/21/17 Subjective:: No new complaints on this patient. Patient sent to the for transesophageal echocardiogram. Report is not yet available. Patient is maintaining sinus rhythm. Cardiac enzymes have trended down. Blood cultures continues to grow gram-positive cocci in clusters. Multiple blood cultures have been noted to be positive. Blood cultures growing MRSA complete blood count showing less leukocytosis. Review of systems: Rest review of systems negative. Medications: Medications have been reviewed. Reason For Visit: NSTEMI, POSSIBLE SEPSIS Physical Exam Vital Signs: Temp Pulse Resp BP Pulse Ox 98.6 F 80 20 121/50 L 96 09/21/17 15:50 09/21/17 15:50 09/21/17 15:50 09/21/17 15:50 09/21/17 15:50 Intake & Output 09/20/17 09/21/17 09/22/17 06:59 06:59 06:59 Intake Total 1259 3786 250 Output Total 800 Balance 459 3786 250 Weight 104.7 kg 106.3 kg Exam: GENERAL: well-nourished and in no acute distress. Alert and oriented x3 HEAD: Atraumatic, normocephalic. EYES: Pupils equal round and reactive to light, extraocular movements intact, sclera anicteric, conjunctiva are normal. ENT: TMs normal, nares patent, oropharynx clear without exudates. Moist mucous membranes. No oral ulcerations or bleeding gums noted NECK: supple without lymphadenopathy. Trachea is central. No cervical or axillary lymphadenopathy noted. Carotids are 2+, JVD WNL LUNGS: Respiration seems nonlabored, no significant accessory muscle action noted. Breath sounds clear to auscultation bilaterally and equal noted. No wheezes rales or rhonchi noted. No significant dullness noted on percussion. CHEST: Palpation of the chest wall shows no significant chest wall tenderness. No other significant abnormalities noted. HEART: [place] CLEATER, No PSH, 1/6 ANATOLY aortic area, 1/6 ward systolic murmur mitral area, no rubs, no gallops. ABDOMEN: Soft, no significant tenderness appreciated, normoactive bowel sounds. No guarding, no rebound. No rigidity noted . No masses appreciated. EXTREMITIES: Pedal pulses are 1-2+, no calf tenderness noted. No clubbing or cyanosis.trace to 1+ pedal edema noted NEUROLOGICAL: Focused neurological exam showed no significant neurologic deficit. Normal speech, no focal weakness appreciated. PSYCH: Normal mood, normal affect. Judgment and insight within normal limits. SKIN: No significant ecchymosis, rash, ulcerations or signs of pruritus noted. MUSCULOSKELETAL EXAM: No significant joint swelling noted. Results Laboratory Results: 09/21/17 05:28 09/21/17 05:28 09/21/17 09/21/17 05:28 05:28 WBC 11.8 H RBC 3.91 L Hgb 12.4 L Hct 36.7 L MCV 94 MCH 31.7 MCHC 33.7 RDW 13.0 Plt Count 377 Seg Neutrophils % 69.1 Lymphocytes % 21.1 Monocytes % 7.5 Eosinophils % 1.7 Basophils % 0.6 Absolute Neutrophils 8.1 Absolute Lymphocytes 2.5 Absolute Monocytes 0.9 Absolute Eosinophils 0.2 Absolute Basophils 0.1 Sodium 132.2 L Potassium 3.9 Chloride 96 L Carbon Dioxide 28 Anion Gap 8 BUN 13 Creatinine 0.86 Est GFR ( Amer) > 60 Est GFR (Non-Af Amer) > 60 Glucose 113 H Calcium 8.7 Total Bilirubin 1.1 AST 26 ALT 42 Alkaline Phosphatase 75 Total Protein 5.6 L Albumin 2.6 L 09/18/17 19:25 Blood Blood Culture - Final Mrsa (Meth Resis Staph Aureus) 09/18/17 17:25 Blood Blood Culture - Final Mrsa (Meth Resis Staph Aureus) 09/15/17 09/16/17 09/16/17 19:42 01:44 09:09 Creatine Kinase Troponin I 0.301 0.279 0.166 09/16/17 09:09 Creatine Kinase 271 H Troponin I Impressions: Head CT 09/15/17 00:00 IMPRESSION: NORMAL BRAIN CT WITHOUT CONTRAST. EVIDENCE OF ACUTE STROKE: NO. Chest X-Ray 09/15/17 12:20 IMPRESSION: No significant interval change. No acute findings. Obstructive lung disease. Other findings as noted above Cervical Spine MRI 09/20/17 00:00 IMPRESSION: 1. DISC DISEASE WITH STENOSIS AND IMPINGEMENT DESCRIBED ABOVE. 2. NO CLEAR-CUT EVIDENCE OF OSTEOMYELITIS OR DISCITIS. NO FOCAL EPIDURAL ABSCESS. Lumbar Spine MRI 09/20/17 00:00 IMPRESSION: 1. MULTILEVEL CHRONIC DEGENERATIVE DISC DISEASE AND FACET ARTHROPATHY DESCRIBED. 2. NO MR FINDINGS SUSPICIOUS FOR VERTEBRAL OSTEOMYELITIS. NO EVIDENCE OF SOFT TISSUE ABSCESS OR EPIDURAL ABSCESS. Thoracic Spine MRI 09/20/17 00:00 IMPRESSION: UNREMARKABLE MRI THORACIC SPINE. NO FINDINGS CONCERNING FOR VERTEBRAL BODY OSTEOMYELITIS. NO GROSS EVIDENCE OF SOFT TISSUE ABSCESS OR EPIDURAL ABSCESS. Assessment & Plan - Diagnosis (1) Non-STEMI (non-ST elevated myocardial infarction) Is this a current diagnosis for this admission?: Yes (2) Elevated troponin Is this a current diagnosis for this admission?: Yes (3) DM type 2 (diabetes mellitus, type 2) Qualifiers: Diabetes mellitus complication status: with unspecified complications Diabetes mellitus long-term insulin use: unspecified long-term insulin use status Qualified Code(s): E11.8 - Type 2 diabetes mellitus with unspecified complications Is this a current diagnosis for this admission?: Yes (4) COPD (chronic obstructive pulmonary disease) Qualifiers: Emphysema type: unspecified Is this a current diagnosis for this admission?: Yes (5) Sepsis Qualifiers: Sepsis type: methicillin resistant Staphylococcus aureus Qualified Code(s) : A41.02 - Sepsis due to Methicillin resistant Staphylococcus aureus Is this a current diagnosis for this admission?: Yes (6) Coronary artery disease Qualifiers: Coronary Disease-Associated Artery/Lesion type: unspecified vessel or lesion type [place] vs. transplanted heart: [place] heart Associated angina: angina presence unspecified Qualified Code(s): I25.10 - Atherosclerotic heart disease of [place] coronary artery without angina pectoris Is this a current diagnosis for this admission?: Yes - Notes Notes: Patient currently has continuous bacteremia with methicillin-resistant staph aureus for multiple days since admission. ID opinion has been sought. Patient went for transesophageal echocardiogram but the results are pending. Agree with switching to daptomycin and rifampin. Patient will benefit from a repeat echocardiogram and periodic EKG. Will continue to follow patient. - Time Time with patient: 15-25 minutes - CODE STATUS was discussed, patient remains full code. Surrogate decision-maker unchanged. Multiple medical problems were addressed. More than 50% of the time spent coordinating care, discussing management plans with involved caregivers. Management plans discussed with involved personnels. Medical decision making was of moderate to high complexity , patient's has multiple comorbidities. Medications reviewed and adjusted accordingly: Yes
[2017-09-21] MEDS: DAPTOMYCIN 600 MG in NORMAL SALINE 50 ML IV SCH (22:03)
[2017-09-22] MEDS: HYDROCODONE/ACETAMINOPHEN 5-325 MG TABLET PO PRN ×3 (04:21→18:25)
[2017-09-22 06:20] LABS: HEMOGLOBIN 11.4 g/dL (13.5-17.0); MEAN CORPUSCULAR HEMOGLOBIN 32.2 pg (27.0-33.4); MEAN CORPUSCULAR HGB CONC 34.5 g/dL (32.0-36.0); MEAN CORPUSCULAR VOLUME 93 fl (80-97); PLATELET COUNT 428 10^3/uL (150-450); RED BLOOD COUNT 3.53 10^6/uL (4.35-5.55); RED CELL DISTRIBUTION WIDTH 13.5 % (11.5-14.0); WHITE BLOOD COUNT 9.7 10^3/uL (4.0-10.5)
[2017-09-22 06:30] LABS: ANION GAP 9 (5-19); BLOOD UREA NITROGEN 17 mg/dL (7-20); CALCIUM 8.6 mg/dL (8.4-10.2); CARBON DIOXIDE 24 mmol/L (22-30); CHLORIDE 98 mmol/L (98-107); GLUCOSE 196 mg/dL (75-110); POTASSIUM 3.9 mmol/L (3.6-5.0); SODIUM 131.1 mmol/L (137-145)
[2017-09-22] MEDS: INSULIN GLARGINE,HUM.REC.ANLOG 300 UNIT/3 ML INSULN.PEN SUBCUT SCH (08:07)
[2017-09-22] MEDS: INSULIN LISPRO 100 UNIT/ML 3 ML VIAL SUBCUT SCH ×3 (08:09→17:21)
[2017-09-22] MEDS: INSULIN LISPRO 100 UNIT/ML 3 ML VIAL SUBCUT PRN ×3 (08:10→17:22)
[2017-09-22] MEDS ORDERED: RIFAMPIN 300 MG in NORMAL SALINE 250 ML IV SCH (08:30)
[2017-09-22] MEDS: IPRATROPIUM/ALBUTEROL 0.5-2.5 MG/3 ML AMPUL NEB SCH ×3 (08:35→21:24)
[2017-09-22] MEDS ORDERED: HYDROCODONE/ACETAMINOPHEN 5-325 MG TABLET ONE (09:17)
[2017-09-22] MEDS: METOPROLOL SUCCINATE 25 MG TAB.SR.24H PO SCH ×2 (09:27→22:06)
[2017-09-22] MEDS: LIDOCAINE 5% (700 MG) TRANSDERMAL ADH..PATCH TP SCH (09:29)
[2017-09-22] MEDS: ASPIRIN 81 MG TABLET, ENT COATED PO SCH (09:29)
[2017-09-22] MEDS: RANOLAZINE 500 MG TAB.SR.12H PO SCH ×2 (10:34→22:06)
[2017-09-22] MEDS: CYCLOBENZAPRINE HCL 10 MG TABLET PO PRN ×2 (10:34→18:25)
[2017-09-22] MEDS: RIFAMPIN 300 MG in NORMAL SALINE 250 ML IV SCH ×2 (10:43→17:22)
--- NOTE | 2017-09-22 14:08 | PDOC PROGRESS REPORT ---
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 The patient was unable to get up from the floor for several hours. He was found to have sepsis secondary to MRSA bacteremia. MRI imaging of cervical, MUSA , and lumbar spine have not demonstrated evidence of osteomyelitis. TERENCE completed yesterday at [facility]; per report no evidence of endocarditis ( official/written report not yet available). The patient is seen on morning rounds. He is found sitting upright to the recliner on room air. He was observed earlier in the day to be emanating in the hallways, it appears that he did multiple labs are on the floor. He states that he is now feeling quite fatigued. His primary complaint continues to be mid thoracic back pain that is unrelieved by position changing. He states that the pain medication is somewhat helpful but does not seem to last very long. He is appreciative of the Flexeril as he states that he is feeling much more comfortable at present. He denies a history of chronic back pain and believes that the pain may have been related to his fall prior to admission. He has no other questions or concerns at this time. Reason For Visit: NSTEMI, POSSIBLE SEPSIS Physical Exam Vital Signs: Temp Pulse Resp BP Pulse Ox 98.9 F 82 16 143/58 H 94 09/22/17 12:00 09/22/17 12:00 09/22/17 12:00 09/22/17 12:00 09/22/17 12:00 Intake & Output 09/21/17 09/22/17 09/23/17 06:59 06:59 06:59 Intake Total 3786 1350 Balance 3786 1350 Weight 106.3 kg 105.8 kg General appearance: PRESENT: no acute distress, well-developed, well-nourished Head exam: PRESENT: atraumatic, normocephalic Eye exam: PRESENT: conjunctiva pink, EOMI, PERRLA. ABSENT: scleral icterus Ear exam: PRESENT: normal external ear exam Mouth exam: PRESENT: moist, tongue midline Neck exam: ABSENT: carotid bruit, JVD, lymphadenopathy, thyromegaly Respiratory exam: PRESENT: clear to auscultation kimmie, symmetrical, unlabored. ABSENT: rales, rhonchi, wheezes Cardiovascular exam: PRESENT: RRR, +S1, +S2, systolic murmur. ABSENT: diastolic murmur, rubs Pulses: PRESENT: normal dorsalis pedis pul Vascular exam: PRESENT: normal capillary refill GI/Abdominal exam: PRESENT: normal bowel sounds, soft. ABSENT: distended, guarding, mass, organolmegaly, rebound, tenderness Rectal exam: PRESENT: deferred Extremities exam: PRESENT: full ROM. ABSENT: calf tenderness, clubbing, pedal edema Neurological exam: PRESENT: alert, awake, oriented to person, oriented to place , oriented to time, oriented to situation, CN II-XII grossly intact. ABSENT: motor sensory deficit Psychiatric exam: PRESENT: appropriate affect, normal mood. ABSENT: homicidal ideation, suicidal ideation Skin exam: PRESENT: dry, intact, warm. ABSENT: cyanosis, rash Results Laboratory Results: 09/22/17 05:38 09/22/17 05:38 09/22/17 09/22/17 05:38 05:38 WBC 9.7 RBC 3.53 L Hgb 11.4 L Hct 33.0 L MCV 93 MCH 32.2 MCHC 34.5 RDW 13.5 Plt Count 428 Sodium 131.1 L Potassium 3.9 Chloride 98 Carbon Dioxide 24 Anion Gap 9 BUN 17 Creatinine 0.84 Est GFR ( Amer) > 60 Est GFR (Non-Af Amer) > 60 Glucose 196 H Calcium 8.6 09/19/17 14:36 Blood Blood Culture - Final Mrsa (Meth Resis Staph Aureus) 09/19/17 11:20 Blood Blood Culture - Final Mrsa (Meth Resis Staph Aureus) 09/15/17 09/16/17 09/16/17 19:42 01:44 09:09 Creatine Kinase Troponin I 0.301 0.279 0.166 09/16/17 09:09 Creatine Kinase 271 H Troponin I Impressions: Head CT 09/15/17 00:00 IMPRESSION: NORMAL BRAIN CT WITHOUT CONTRAST. EVIDENCE OF ACUTE STROKE: NO. Chest X-Ray 09/15/17 12:20 IMPRESSION: No significant interval change. No acute findings. Obstructive lung disease. Other findings as noted above Cervical Spine MRI 09/20/17 00:00 IMPRESSION: 1. DISC DISEASE WITH STENOSIS AND IMPINGEMENT DESCRIBED ABOVE. 2. NO CLEAR-CUT EVIDENCE OF OSTEOMYELITIS OR DISCITIS. NO FOCAL EPIDURAL ABSCESS. Lumbar Spine MRI 09/20/17 00:00 IMPRESSION: 1. MULTILEVEL CHRONIC DEGENERATIVE DISC DISEASE AND FACET ARTHROPATHY DESCRIBED. 2. NO MR FINDINGS SUSPICIOUS FOR VERTEBRAL OSTEOMYELITIS. NO EVIDENCE OF SOFT TISSUE ABSCESS OR EPIDURAL ABSCESS. Thoracic Spine MRI 09/20/17 00:00 IMPRESSION: UNREMARKABLE MRI THORACIC SPINE. NO FINDINGS CONCERNING FOR VERTEBRAL BODY OSTEOMYELITIS. NO GROSS EVIDENCE OF SOFT TISSUE ABSCESS OR EPIDURAL ABSCESS. Assessment & Plan - Diagnosis (1) Sepsis Qualifiers: Sepsis type: methicillin resistant Staphylococcus aureus Qualified Code(s) : A41.02 - Sepsis due to Methicillin resistant Staphylococcus aureus Is this a current diagnosis for this admission?: Yes Plan: Clinically the patient is improved; although did have a low-grade temperature again last night. Heart rate and blood pressure are normal. Leukocytosis has resolved. Blood cultures (09/22/17): Pending -the patient was still on vancomycin at the time of these cultures Blood cultures (09/20/17): Gram-positive cocci in clusters -on vancomycin at time of these cultures 10 additional sets of blood cultures demonstrating MRSA; Vancomycin sensitive with VIVIEN of 1 Urine culture: MRSA MRI of the cervical, thoracic, and lumbar spine rule out potential osteomyelitis. The patient denies artificial joints, chronic skin wounds, large joint pain, cellulitis/phlebitis at previous IV sites. The patient was transitioned to daptomycin and rifampin overnight for persistently positive MRSA blood cultures. I did speak with [facility] yesterday who recommended a minimum of 4 weeks of IV antibiotic therapy following negative blood cultures. (2) Acute cystitis Is this a current diagnosis for this admission?: Yes Plan: Secondary to MRSA bacteremia; most likely due to seeding to the urinary tract system. Continue antibiotic therapy as above. (3) Back pain Is this a current diagnosis for this admission?: Yes Plan: Cervical, thoracic, and lumbar spine MRIs do demonstrate degenerative disc disease with bulging disc at C5/C6 and spinal stenosis of C5 through C7, unremarkable thoracic spine, and bulging disc of L2/L3, bulging disc L3/L4 with mild spinal stenosis, bulging disc L4/L5 with moderate to severe spinal stenosis , bulging disc L5/S1 with mild spinal stenosis. No evidence of osteomyelitis. We will continue [place] and Flexeril as needed for pain. Continue Lidoderm patches. Encourage mobility. (4) COPD (chronic obstructive pulmonary disease) Qualifiers: Emphysema type: unspecified Is this a current diagnosis for this admission?: Yes Plan: Stable, no acute exacerbation present. Continue albuterol and DuoNeb treatments as needed. (5) DM type 2 (diabetes mellitus, type 2) Qualifiers: Diabetes mellitus complication status: with unspecified complications Diabetes mellitus oysterman insulin use: unspecified correction insulin use status Qualified Code(s): E11.8 - Type 2 diabetes mellitus with unspecified complications Is this a current diagnosis for this admission?: Yes Plan: Hemoglobin A1c 11.7% The patient is placed on a consistent carb diet with Accu-Cheks before meals and at bedtime. Lantus 45 units daily with Humalog for sliding scale coverage. (6) DVT prophylaxis Is this a current diagnosis for this admission?: Yes Plan: Lovenox. (7) Debility Is this a current diagnosis for this admission?: Yes Plan: Following recurrent hospitalizations and subsequent fall at home. The patient is currently ambulating safely with a walker. We will continue to monitor and provide for patient safety. Fall precautions. (8) Falls Is this a current diagnosis for this admission?: Yes Plan: As above. Will ask PT/OT to evaluate and treat. (9) Hypomagnesemia Is this a current diagnosis for this admission?: Yes Plan: Replete. (10) Hyponatremia Is this a current diagnosis for this admission?: Yes Plan: Stable; Likely secondary to dehydration and hyperglycemia. We will continue to monitor. (11) Leukocytosis Is this a current diagnosis for this admission?: Yes Plan: Resolved; Secondary to MRSA sepsis. Blood cultures and antibiotics as above. (12) Non-STEMI (non-ST elevated myocardial infarction) Is this a current diagnosis for this admission?: Yes Plan: Type II non-STEMI AK in the setting of sepsis. Troponins are trending down. Cardiology has been consulted; appreciate their evaluation and recommendations. (13) Diarrhea Is this a current diagnosis for this admission?: Yes Plan: Resolved. (14) Endocarditis Qualifiers: Chronicity: unspecified Is this a current diagnosis for this admission?: Yes Plan: Ruled out as TERENCE and transthoracic echocardiogram were both negative for evidence of valvular vegetation. - Time Time Spent with patient: 25-34 minutes Medications reviewed and adjusted accordingly: Yes Within: Other - Will require 4 weeks abx therapy; date to be determined once blood cultures are negative.
--- NOTE | 2017-09-22 20:04 | PDOC PROGRESS REPORT ---
Subjective Progress Note for:: 09/22/17 Subjective:: No new complaints on this patient. Patient tells me that he was not noted to have any valve infection on transesophageal echocardiogram. Official report is not yet available. Patient is maintaining sinus rhythm. Cardiac enzymes have trended down. Blood cultures continues to grow gram-positive cocci in clusters. Multiple blood cultures have been noted to be positive. Blood cultures growing MRSA complete blood count showing less leukocytosis. Review of systems: Rest review of systems negative. Medications: Medications have been reviewed. Reason For Visit: NSTEMI, POSSIBLE SEPSIS Physical Exam Vital Signs: Temp Pulse Resp BP Pulse Ox 98.9 F 90 20 147/58 H 96 09/22/17 16:00 09/22/17 16:00 09/22/17 16:00 09/22/17 16:00 09/22/17 16:00 Intake & Output 09/21/17 09/22/17 09/23/17 06:59 06:59 06:59 Intake Total 3786 1350 900 Output Total 550 Balance 3786 1350 350 Weight 106.3 kg 105.8 kg Exam: GENERAL: well-nourished and in no acute distress. Alert and oriented x3 HEAD: Atraumatic, normocephalic. EYES: Pupils equal round and reactive to light, extraocular movements intact, sclera anicteric, conjunctiva are normal. ENT: TMs normal, nares patent, oropharynx clear without exudates. Moist mucous membranes. No oral ulcerations or bleeding gums noted NECK: supple without lymphadenopathy. Trachea is central. No cervical or axillary lymphadenopathy noted. Carotids are 2+, JVD WNL LUNGS: Respiration seems nonlabored, no significant accessory muscle action noted. Breath sounds clear to auscultation bilaterally and equal noted. No wheezes rales or rhonchi noted. No significant dullness noted on percussion. CHEST: Palpation of the chest wall shows no significant chest wall tenderness. No other significant abnormalities noted. 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 ABDOMEN: Soft, no significant tenderness appreciated, normoactive bowel sounds. No guarding, no rebound. No rigidity noted . No masses appreciated. EXTREMITIES: Pedal pulses are 1-2+, no calf tenderness noted. No clubbing or cyanosis.trace to 1+ pedal edema noted NEUROLOGICAL: Focused neurological exam showed no significant neurologic deficit. Normal speech, no focal weakness appreciated. PSYCH: Normal mood, normal affect. Judgment and insight within normal limits. SKIN: No significant ecchymosis, rash, ulcerations or signs of pruritus noted. MUSCULOSKELETAL EXAM: No significant joint swelling noted. Results Laboratory Results: 09/22/17 05:38 09/22/17 05:38 09/22/17 09/22/17 05:38 05:38 WBC 9.7 RBC 3.53 L Hgb 11.4 L Hct 33.0 L MCV 93 MCH 32.2 MCHC 34.5 RDW 13.5 Plt Count 428 Sodium 131.1 L Potassium 3.9 Chloride 98 Carbon Dioxide 24 Anion Gap 9 BUN 17 Creatinine 0.84 Est GFR ( Amer) > 60 Est GFR (Non-Af Amer) > 60 Glucose 196 H Calcium 8.6 09/19/17 14:36 Blood Blood Culture - Final Mrsa (Meth Resis Staph Aureus) 09/19/17 11:20 Blood Blood Culture - Final Mrsa (Meth Resis Staph Aureus) 09/15/17 09/16/17 09/16/17 19:42 01:44 09:09 Creatine Kinase Troponin I 0.301 0.279 0.166 09/16/17 09:09 Creatine Kinase 271 H Troponin I Impressions: Head CT 09/15/17 00:00 IMPRESSION: NORMAL BRAIN CT WITHOUT CONTRAST. EVIDENCE OF ACUTE STROKE: NO. Chest X-Ray 09/15/17 12:20 IMPRESSION: No significant interval change. No acute findings. Obstructive lung disease. Other findings as noted above Cervical Spine MRI 09/20/17 00:00 IMPRESSION: 1. DISC DISEASE WITH STENOSIS AND IMPINGEMENT DESCRIBED ABOVE. 2. NO CLEAR-CUT EVIDENCE OF OSTEOMYELITIS OR DISCITIS. NO FOCAL EPIDURAL ABSCESS. Lumbar Spine MRI 09/20/17 00:00 IMPRESSION: 1. MULTILEVEL CHRONIC DEGENERATIVE DISC DISEASE AND FACET ARTHROPATHY DESCRIBED. 2. NO MR FINDINGS SUSPICIOUS FOR VERTEBRAL OSTEOMYELITIS. NO EVIDENCE OF SOFT TISSUE ABSCESS OR EPIDURAL ABSCESS. Thoracic Spine MRI 09/20/17 00:00 IMPRESSION: UNREMARKABLE MRI THORACIC SPINE. NO FINDINGS CONCERNING FOR VERTEBRAL BODY OSTEOMYELITIS. NO GROSS EVIDENCE OF SOFT TISSUE ABSCESS OR EPIDURAL ABSCESS. Assessment & Plan - Diagnosis (1) Non-STEMI (non-ST elevated myocardial infarction) Is this a current diagnosis for this admission?: Yes (2) Elevated troponin Is this a current diagnosis for this admission?: Yes (3) DM type 2 (diabetes mellitus, type 2) Qualifiers: Diabetes mellitus complication status: with unspecified complications Diabetes mellitus meterman insulin use: unspecified skilled nursing insulin use status Qualified Code(s): E11.8 - Type 2 diabetes mellitus with unspecified complications Is this a current diagnosis for this admission?: Yes (4) COPD (chronic obstructive pulmonary disease) Qualifiers: Emphysema type: unspecified Is this a current diagnosis for this admission?: Yes (5) Sepsis Qualifiers: Sepsis type: methicillin resistant Staphylococcus aureus Qualified Code(s) : A41.02 - Sepsis due to Methicillin resistant Staphylococcus aureus Is this a current diagnosis for this admission?: Yes (6) Coronary artery disease Qualifiers: Coronary Disease-Associated Artery/Lesion type: unspecified vessel or lesion type [place] vs. transplanted heart: [place] heart Associated angina: angina presence unspecified Qualified Code(s): I25.10 - Atherosclerotic heart disease of [place] coronary artery without angina pectoris Is this a current diagnosis for this admission?: Yes - Notes Notes: Non-STEMI: This was precipitated by sepsis. Patient has been asymptomatic without any significant EKG changes or any chest pain. Feel any further evaluation can be performed as an outpatient. Continuous bacteremia indicative of endothelial infection. Valvular vegetations been ruled out. Patient probably would need to still approximately 4-6 weeks of antibiotic therapy. I am told ID has been consulted. Regimen has been changed. COPD: Currently stable. Coronary artery disease: Currently is stable. Patient stable from cardiac standpoint. Arrangements to be made for home IV therapy. - Time Time with patient: 15-25 minutes - CODE STATUS was discussed, patient remains full code. Surrogate decision-maker unchanged. Multiple medical problems were addressed. More than 50% of the time spent coordinating care, discussing management plans with involved caregivers. Management plans discussed with involved personnels. Medical decision making was of moderate to high complexity , patient's has multiple comorbidities. Medications reviewed and adjusted accordingly: Yes
[2017-09-22] MEDS: DAPTOMYCIN 600 MG in NORMAL SALINE 50 ML IV SCH (22:06)
[2017-09-23] MEDS: HYDROCODONE/ACETAMINOPHEN 5-325 MG TABLET PO PRN ×3 (02:02→20:47)
[2017-09-23] MEDS: RIFAMPIN 300 MG in NORMAL SALINE 250 ML IV SCH ×3 (02:02→17:03)
[2017-09-23] MEDS: CYCLOBENZAPRINE HCL 10 MG TABLET PO PRN ×2 (02:11→20:47)
[2017-09-23] MEDS: INSULIN GLARGINE,HUM.REC.ANLOG 300 UNIT/3 ML INSULN.PEN SUBCUT SCH (07:40)
[2017-09-23] MEDS: IPRATROPIUM/ALBUTEROL 0.5-2.5 MG/3 ML AMPUL NEB SCH ×3 (07:41→20:42)
[2017-09-23] MEDS: INSULIN LISPRO 100 UNIT/ML 3 ML VIAL SUBCUT SCH ×3 (07:43→16:59)
[2017-09-23] MEDS: INSULIN LISPRO 100 UNIT/ML 3 ML VIAL SUBCUT PRN ×2 (07:44→11:11)
[2017-09-23] MEDS: ASPIRIN 81 MG TABLET, ENT COATED PO SCH (09:08)
[2017-09-23] MEDS: METOPROLOL SUCCINATE 25 MG TAB.SR.24H PO SCH ×2 (09:08→21:14)
[2017-09-23] MEDS: LIDOCAINE 5% (700 MG) TRANSDERMAL ADH..PATCH TP SCH (09:09)
[2017-09-23] MEDS: RANOLAZINE 500 MG TAB.SR.12H PO SCH ×2 (09:09→21:14)
[2017-09-23] MEDS: ENOXAPARIN SODIUM INJ 40 MG/0.4 ML DISP.SYRIN SUBCUT SCH (09:10)
--- NOTE | 2017-09-23 13:02 | PDOC PROGRESS REPORT ---
Subjective Progress Note for:: 09/23/17 Subjective:: The patient is a pleasant 72-year-old gentleman with a past medical history of CHF, CAD, [place] in 2006 s/p CABG, hyperlipidemia, hypertension, COPD, arthritis, depression with recent hospital admission for influenza who presented to our hospital on 09/15/17 for a complaint of generalized weakness leading to a fall. The patient was unable to get up from the floor for several hours. He was found to have sepsis secondary to MRSA bacteremia. MRI imaging of cervical, MUSA , and lumbar spine have not demonstrated evidence of osteomyelitis. TERENCE completed yesterday at [place]; per report no evidence of endocarditis ( official/written report not yet available). The patient is seen on morning rounds. He is found resting in bed on room air. He states that the pain medications and especially the Flexeril has improved his back pain. He continues to be quite fatigued but otherwise states that he is feeling well today. He has no other questions or concerns at this time. Reason For Visit: NSTEMI, POSSIBLE SEPSIS Physical Exam Vital Signs: Temp Pulse Resp BP Pulse Ox 99.6 F 97 16 147/68 H 96 09/23/17 11:17 09/23/17 11:17 09/23/17 11:17 09/23/17 11:17 09/23/17 11:17 Intake & Output 09/22/17 09/23/17 09/24/17 06:59 06:59 06:59 Intake Total 1350 1590 Output Total 550 Balance 1350 1040 Weight 105.8 kg 109.3 kg General appearance: PRESENT: no acute distress, well-developed, well-nourished Head exam: PRESENT: atraumatic, normocephalic Eye exam: PRESENT: conjunctiva pink, EOMI, PERRLA. ABSENT: scleral icterus Ear exam: PRESENT: normal external ear exam Mouth exam: PRESENT: moist, tongue midline Neck exam: ABSENT: carotid bruit, JVD, lymphadenopathy, thyromegaly Respiratory exam: PRESENT: clear to auscultation kimmie, symmetrical, unlabored. ABSENT: rales, rhonchi, wheezes Cardiovascular exam: PRESENT: RRR, +S1, +S2, systolic murmur. ABSENT: diastolic murmur, rubs Pulses: PRESENT: normal dorsalis pedis pul Vascular exam: PRESENT: normal capillary refill GI/Abdominal exam: PRESENT: normal bowel sounds, soft. ABSENT: distended, guarding, mass, organolmegaly, rebound, tenderness Rectal exam: PRESENT: deferred Extremities exam: PRESENT: full ROM. ABSENT: calf tenderness, clubbing, pedal edema Neurological exam: PRESENT: alert, awake, oriented to person, oriented to place , oriented to time, oriented to situation, CN II-XII grossly intact. ABSENT: motor sensory deficit Psychiatric exam: PRESENT: appropriate affect, normal mood. ABSENT: homicidal ideation, suicidal ideation Skin exam: PRESENT: dry, intact, warm. ABSENT: cyanosis, rash Results Laboratory Results: 09/22/17 05:38 09/22/17 05:38 09/20/17 20:45 Blood Blood Culture - Final Mrsa (Meth Resis Staph Aureus) 09/20/17 19:50 Blood Blood Culture - Final Mrsa (Meth Resis Staph Aureus) 09/19/17 14:36 Blood Blood Culture - Final Mrsa (Meth Resis Staph Aureus) 09/19/17 11:20 Blood Blood Culture - Final Mrsa (Meth Resis Staph Aureus) 09/15/17 09/16/17 09/16/17 19:42 01:44 09:09 Creatine Kinase Troponin I 0.301 0.279 0.166 09/16/17 09:09 Creatine Kinase 271 H Troponin I Impressions: Head CT 09/15/17 00:00 IMPRESSION: NORMAL BRAIN CT WITHOUT CONTRAST. EVIDENCE OF ACUTE STROKE: NO. Chest X-Ray 09/15/17 12:20 IMPRESSION: No significant interval change. No acute findings. Obstructive lung disease. Other findings as noted above Cervical Spine MRI 09/20/17 00:00 IMPRESSION: 1. DISC DISEASE WITH STENOSIS AND IMPINGEMENT DESCRIBED ABOVE. 2. NO CLEAR-CUT EVIDENCE OF OSTEOMYELITIS OR DISCITIS. NO FOCAL EPIDURAL ABSCESS. Lumbar Spine MRI 09/20/17 00:00 IMPRESSION: 1. MULTILEVEL CHRONIC DEGENERATIVE DISC DISEASE AND FACET ARTHROPATHY DESCRIBED. 2. NO MR FINDINGS SUSPICIOUS FOR VERTEBRAL OSTEOMYELITIS. NO EVIDENCE OF SOFT TISSUE ABSCESS OR EPIDURAL ABSCESS. Thoracic Spine MRI 09/20/17 00:00 IMPRESSION: UNREMARKABLE MRI THORACIC SPINE. NO FINDINGS CONCERNING FOR VERTEBRAL BODY OSTEOMYELITIS. NO GROSS EVIDENCE OF SOFT TISSUE ABSCESS OR EPIDURAL ABSCESS. Assessment & Plan - Diagnosis (1) MRSA bacteremia Plan: Clinically the patient is improved; continues to have low-grade temperatures. Heart rate and blood pressure are normal. Leukocytosis has resolved. Blood cultures (09/22/17): No Growth at 24 hrs; correction from previous note, the patient had received one dose of daptomycin and rifampin prior to this set of cultures being drawn. All previous blood cultures: MRSA Urine culture: MRSA MRI of the cervical, thoracic, and lumbar spine rule out potential osteomyelitis. The patient denies artificial joints, chronic skin wounds, large joint pain, cellulitis/phlebitis at previous IV sites. The patient was transitioned to daptomycin and rifampin for persistently positive MRSA blood cultures. First set of blood cultures following antibiotic change have no growth at 24 hours. We will repeat cultures again tomorrow morning to confirm negative cultures in anticipation of PICC line cement early next week. I did speak with [facility]; they recommend a minimum of 4 weeks of IV antibiotic therapy following negative blood cultures. I have asked discharge planning to evaluate the patient for home antibiotic infusion therapy. (2) Sepsis Qualifiers: Sepsis type: methicillin resistant Staphylococcus aureus Qualified Code(s) : A41.02 - Sepsis due to Methicillin resistant Staphylococcus aureus Is this a current diagnosis for this admission?: Yes Plan: Resolved. (3) Acute cystitis Is this a current diagnosis for this admission?: Yes Plan: Secondary to MRSA bacteremia; most likely due to seeding to the urinary tract system. Continue antibiotic therapy as above. (4) Back pain Is this a current diagnosis for this admission?: Yes Plan: Cervical, thoracic, and lumbar spine MRIs do demonstrate degenerative disc disease with bulging disc at C5/C6 and spinal stenosis of C5 through C7, unremarkable thoracic spine, and bulging disc of L2/L3, bulging disc L3/L4 with mild spinal stenosis, bulging disc L4/L5 with moderate to severe spinal stenosis , bulging disc L5/S1 with mild spinal stenosis. No evidence of osteomyelitis. We will continue [place] and Flexeril as needed for pain. Continue Lidoderm patches. Encourage mobility. (5) COPD (chronic obstructive pulmonary disease) Qualifiers: Emphysema type: unspecified Is this a current diagnosis for this admission?: Yes Plan: Stable, no acute exacerbation present. Continue albuterol and DuoNeb treatments as needed. (6) DM type 2 (diabetes mellitus, type 2) Qualifiers: Diabetes mellitus complication status: with unspecified complications Diabetes mellitus correction insulin use: unspecified correction insulin use status Qualified Code(s): E11.8 - Type 2 diabetes mellitus with unspecified complications Is this a current diagnosis for this admission?: Yes Plan: Hemoglobin A1c 11.7% The patient is placed on a consistent carb diet with Accu-Cheks before meals and at bedtime. Lantus 45 units daily with Humalog for sliding scale coverage. (7) DVT prophylaxis Is this a current diagnosis for this admission?: Yes Plan: Lovenox. (8) Debility Is this a current diagnosis for this admission?: Yes Plan: Following recurrent hospitalizations and subsequent fall at home. The patient is currently ambulating safely with a walker. We will continue to monitor and provide for patient safety. Fall precautions. (9) Falls Is this a current diagnosis for this admission?: Yes Plan: As above. Will ask PT/OT to evaluate and treat. (10) Hypomagnesemia Is this a current diagnosis for this admission?: Yes Plan: Replete. (11) Hyponatremia Is this a current diagnosis for this admission?: Yes Plan: Stable; Likely secondary to dehydration and hyperglycemia. We will continue to monitor. (12) Leukocytosis Is this a current diagnosis for this admission?: Yes Plan: Resolved; Secondary to MRSA sepsis. Blood cultures and antibiotics as above. (13) Non-STEMI (non-ST elevated myocardial infarction) Is this a current diagnosis for this admission?: Yes Plan: Type II non-STEMI IN in the setting of sepsis. Troponins are trending down. Cardiology has been consulted; appreciate their evaluation and recommendations. (14) Diarrhea Is this a current diagnosis for this admission?: Yes Plan: Resolved. (15) Endocarditis Qualifiers: Chronicity: unspecified Is this a current diagnosis for this admission?: Yes Plan: Ruled out as TERENCE and transthoracic echocardiogram were both negative for evidence of valvular vegetation. (16) Full code status Is this a current diagnosis for this admission?: Yes Plan: The patient and nursing staff both tell me that the patient's adult son and his significant other were in a disagreement last night over who would be the emergency contact and primary decision maker in the case of an emergency. The patient tells me that he has the paperwork to write a healthcare power of insurance defense attorney, but has not completed this yet. He states that he is having difficulty deciding who would be an appropriate person and does not feel that he has somebody in his life that he would trust with these decisions. The concept of the MOST form is introduced and the patient states that he would appreciate reviewing this form with me tomorrow but would like to think about his wishes overnight. At this time, the patient remains a full code and has indicated that neither his son or significant other (Ms. Rausch) have been appointed as surrogate decision makers. - Time Time Spent with patient: 25-34 minutes - Inpatient Certification Based on my medical assessment, after consideration of the patient's comorbidities, presenting symptoms, or acuity I expect that the services needed warrant INPATIENT care.: Yes I certify that my determination is in accordance with my understanding of Medicare's requirements for reasonable and necessary INPATIENT services [42 CFR 412.3e].: Yes Medical Necessity: Need for IV Antibiotics
[2017-09-23] MEDS: DAPTOMYCIN 600 MG in NORMAL SALINE 50 ML IV SCH (21:14)
[2017-09-24] MEDS: HYDROCODONE/ACETAMINOPHEN 5-325 MG TABLET PO PRN ×5 (00:13→21:23)
[2017-09-24] MEDS: RIFAMPIN 300 MG in NORMAL SALINE 250 ML IV SCH ×2 (02:58→10:30)
[2017-09-24] MEDS: CYCLOBENZAPRINE HCL 10 MG TABLET PO PRN ×2 (04:08→17:07)
[2017-09-24 06:39] LABS: ANION GAP 6 (5-19); BLOOD UREA NITROGEN 10 mg/dL (7-20); CALCIUM 9.1 mg/dL (8.4-10.2); CARBON DIOXIDE 27 mmol/L (22-30); CHLORIDE 102 mmol/L (98-107); GLUCOSE 161 mg/dL (75-110); HEMATOCRIT 34.8 % (37.9-51.0); HEMOGLOBIN 11.8 g/dL (13.5-17.0); MEAN CORPUSCULAR HEMOGLOBIN 31.6 pg (27.0-33.4); MEAN CORPUSCULAR HGB CONC 33.9 g/dL (32.0-36.0); MEAN CORPUSCULAR VOLUME 94 fl (80-97); POTASSIUM 3.8 mmol/L (3.6-5.0); RED BLOOD COUNT 3.72 10^6/uL (4.35-5.55); RED CELL DISTRIBUTION WIDTH 13.2 % (11.5-14.0); SODIUM 135.4 mmol/L (137-145); WHITE BLOOD COUNT 10.1 10^3/uL (4.0-10.5)
[2017-09-24 07:29] LABS: PLATELET COUNT 412 10^3/uL (150-450)
[2017-09-24] MEDS: IPRATROPIUM/ALBUTEROL 0.5-2.5 MG/3 ML AMPUL NEB SCH ×3 (07:49→19:51)
[2017-09-24] MEDS: INSULIN GLARGINE,HUM.REC.ANLOG 300 UNIT/3 ML INSULN.PEN SUBCUT SCH (08:21)
[2017-09-24] MEDS: INSULIN LISPRO 100 UNIT/ML 3 ML VIAL SUBCUT SCH ×3 (08:23→17:04)
[2017-09-24] MEDS: INSULIN LISPRO 100 UNIT/ML 3 ML VIAL SUBCUT PRN ×4 (08:23→21:23)
[2017-09-24] MEDS: ASPIRIN 81 MG TABLET, ENT COATED PO SCH (10:29)
[2017-09-24] MEDS: LIDOCAINE 5% (700 MG) TRANSDERMAL ADH..PATCH TP SCH (10:29)
[2017-09-24] MEDS: RANOLAZINE 500 MG TAB.SR.12H PO SCH ×2 (10:30→21:23)
[2017-09-24] MEDS: METOPROLOL SUCCINATE 25 MG TAB.SR.24H PO SCH ×2 (10:30→21:22)
--- NOTE | 2017-09-24 10:36 | PDOC PROGRESS REPORT ---
Subjective Progress Note for:: 09/23/17 Subjective:: No new complaints on this patient. Patient tells me that he was not noted to have any valve infection on transesophageal echocardiogram. Official report is not yet available. Blood cultures from yesterday have not grown any organisms yet. Therefore may now be on right antibiotics. Patient is maintaining sinus rhythm. Previously multiple blood cultures have been noted to be positive. Blood cultures growing MRSA complete blood count showing less leukocytosis. Review of systems: Rest review of systems negative. Medications: Medications have been reviewed. Reason For Visit: NSTEMI, POSSIBLE SEPSIS Physical Exam Vital Signs: Temp Pulse Resp BP Pulse Ox 99.2 F 85 20 128/49 H 96 09/23/17 15:13 09/23/17 15:13 09/23/17 15:13 09/23/17 15:13 09/23/17 15:13 Intake & Output 09/22/17 09/23/17 09/24/17 06:59 06:59 06:59 Intake Total 1350 1590 800 Output Total 550 200 Balance 1350 1040 600 Weight 105.8 kg 109.3 kg Exam: GENERAL: well-nourished and in no acute distress. Alert and oriented x3 HEAD: Atraumatic, normocephalic. EYES: Pupils equal round and reactive to light, extraocular movements intact, sclera anicteric, conjunctiva are normal. ENT: TMs normal, nares patent, oropharynx clear without exudates. Moist mucous membranes. No oral ulcerations or bleeding gums noted NECK: supple without lymphadenopathy. Trachea is central. No cervical or axillary lymphadenopathy noted. Carotids are 2+, JVD WNL LUNGS: Respiration seems nonlabored, no significant accessory muscle action noted. Breath sounds clear to auscultation bilaterally and equal noted. No wheezes rales or rhonchi noted. No significant dullness noted on percussion. CHEST: Palpation of the chest wall shows no significant chest wall tenderness. No other significant abnormalities noted. 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 ABDOMEN: Soft, no significant tenderness appreciated, normoactive bowel sounds. No guarding, no rebound. No rigidity noted . No masses appreciated. EXTREMITIES: Pedal pulses are 1-2+, no calf tenderness noted. No clubbing or cyanosis.trace to 1+ pedal edema noted NEUROLOGICAL: Focused neurological exam showed no significant neurologic deficit. Normal speech, no focal weakness appreciated. PSYCH: Normal mood, normal affect. Judgment and insight within normal limits. SKIN: No significant ecchymosis, rash, ulcerations or signs of pruritus noted. MUSCULOSKELETAL EXAM: No significant joint swelling noted. Results Laboratory Results: 09/22/17 05:38 09/22/17 05:38 09/20/17 20:45 Blood Blood Culture - Final Mrsa (Meth Resis Staph Aureus) 09/20/17 19:50 Blood Blood Culture - Final Mrsa (Meth Resis Staph Aureus) 09/15/17 09/16/17 09/16/17 19:42 01:44 09:09 Creatine Kinase Troponin I 0.301 0.279 0.166 09/16/17 09:09 Creatine Kinase 271 H Troponin I Impressions: Head CT 09/15/17 00:00 IMPRESSION: NORMAL BRAIN CT WITHOUT CONTRAST. EVIDENCE OF ACUTE STROKE: NO. Chest X-Ray 09/15/17 12:20 IMPRESSION: No significant interval change. No acute findings. Obstructive lung disease. Other findings as noted above Cervical Spine MRI 09/20/17 00:00 IMPRESSION: 1. DISC DISEASE WITH STENOSIS AND IMPINGEMENT DESCRIBED ABOVE. 2. NO CLEAR-CUT EVIDENCE OF OSTEOMYELITIS OR DISCITIS. NO FOCAL EPIDURAL ABSCESS. Lumbar Spine MRI 09/20/17 00:00 IMPRESSION: 1. MULTILEVEL CHRONIC DEGENERATIVE DISC DISEASE AND FACET ARTHROPATHY DESCRIBED. 2. NO MR FINDINGS SUSPICIOUS FOR VERTEBRAL OSTEOMYELITIS. NO EVIDENCE OF SOFT TISSUE ABSCESS OR EPIDURAL ABSCESS. Thoracic Spine MRI 09/20/17 00:00 IMPRESSION: UNREMARKABLE MRI THORACIC SPINE. NO FINDINGS CONCERNING FOR VERTEBRAL BODY OSTEOMYELITIS. NO GROSS EVIDENCE OF SOFT TISSUE ABSCESS OR EPIDURAL ABSCESS. Assessment & Plan - Diagnosis (1) Non-STEMI (non-ST elevated myocardial infarction) Is this a current diagnosis for this admission?: Yes (2) Elevated troponin Is this a current diagnosis for this admission?: Yes (3) DM type 2 (diabetes mellitus, type 2) Qualifiers: Diabetes mellitus complication status: with unspecified complications Diabetes mellitus intermediate insulin use: unspecified intermediate insulin use status Qualified Code(s): E11.8 - Type 2 diabetes mellitus with unspecified complications Is this a current diagnosis for this admission?: Yes (4) COPD (chronic obstructive pulmonary disease) Qualifiers: Emphysema type: unspecified Is this a current diagnosis for this admission?: Yes (5) Sepsis Qualifiers: Sepsis type: methicillin resistant Staphylococcus aureus Qualified Code(s) : A41.02 - Sepsis due to Methicillin resistant Staphylococcus aureus Is this a current diagnosis for this admission?: Yes (6) Coronary artery disease Qualifiers: Coronary Disease-Associated Artery/Lesion type: unspecified vessel or lesion type [place] vs. transplanted heart: false pass heart Associated angina: angina presence unspecified Qualified Code(s): I25.10 - Atherosclerotic heart disease of false pass coronary artery without angina pectoris Is this a current diagnosis for this admission?: Yes - Notes Notes: Patient's transesophageal echocardiogram was negative for any endocarditis. Patient may have other source of bacteremia. As regards non-STEMI, this was related to sepsis. Patient will benefit from a nuclear stress test as an outpatient. This can be scheduled through my office. Patient has significant coronary artery disease therefore would need a cardiology follow-up. I will be happy to provide this if patient wishes to follow-up with me. Sepsis: This is coming under better control. At this point will sign off. Please reconsult if needed. - Time Time with patient: 15-25 minutes - CODE STATUS was discussed, patient remains full code. Surrogate decision-maker unchanged. Multiple medical problems were addressed. More than 50% of the time spent coordinating care, discussing management plans with involved caregivers. Management plans discussed with involved personnels. Medical decision making was of moderate to high complexity , patient's has multiple comorbidities. Medications reviewed and adjusted accordingly: Yes
[2017-09-24] MEDS: ENOXAPARIN SODIUM INJ 40 MG/0.4 ML DISP.SYRIN SUBCUT SCH (11:13)
--- NOTE | 2017-09-24 15:30 | PDOC PROGRESS REPORT ---
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 The patient was unable to get up from the floor for several hours. He was found to have sepsis secondary to MRSA bacteremia. MRI imaging of cervical, MUSA , and lumbar spine have not demonstrated evidence of osteomyelitis. TERENCE completed yesterday at [facility]; per report no evidence of endocarditis ( official/written report not yet available). The patient is seen on morning rounds. He is found resting in bed on room air. He continues to complain of lower back pain. He states that the pain medications have been somewhat helpful. He does report some history of chronic back and indicates that he is already aware that he has degenerative disc disease with some bulging disks. He states that he did not require pain medications prior to his fall. Again asks about his length of antibiotic therapy and the options for discharge home for home infusion. Our discharge planners are investigating this is an option at this time. He has no other questions or concerns at this time. Reason For Visit: NSTEMI, POSSIBLE SEPSIS Physical Exam Vital Signs: Temp Pulse Resp BP Pulse Ox 98.9 F 84 14 139/67 H 92 09/24/17 11:25 09/24/17 13:36 09/24/17 13:36 09/24/17 11:25 09/24/17 13:36 Intake & Output 09/23/17 09/24/17 09/25/17 06:59 06:59 06:59 Intake Total 1590 1540 Output Total 550 200 Balance 1040 1340 Weight 109.3 kg 111.9 kg General appearance: PRESENT: no acute distress, cooperative - Pleasant, well- developed, well-nourished, other - Overweight Head exam: PRESENT: atraumatic, normocephalic Eye exam: PRESENT: conjunctiva pink, EOMI, PERRLA. ABSENT: scleral icterus Ear exam: PRESENT: normal external ear exam Mouth exam: PRESENT: moist, tongue midline Neck exam: ABSENT: carotid bruit, JVD, lymphadenopathy, thyromegaly Respiratory exam: PRESENT: clear to auscultation kimmie, symmetrical, unlabored. ABSENT: rales, rhonchi, wheezes Cardiovascular exam: PRESENT: RRR, +S1, +S2, systolic murmur. ABSENT: diastolic murmur, rubs Pulses: PRESENT: normal dorsalis pedis pul Vascular exam: PRESENT: normal capillary refill GI/Abdominal exam: PRESENT: normal bowel sounds, soft. ABSENT: distended, guarding, mass, organolmegaly, rebound, tenderness Rectal exam: PRESENT: deferred Extremities exam: PRESENT: full ROM. ABSENT: calf tenderness, clubbing, pedal edema Neurological exam: PRESENT: alert, awake, oriented to person, oriented to place , oriented to time, oriented to situation, CN II-XII grossly intact. ABSENT: motor sensory deficit Psychiatric exam: PRESENT: appropriate affect, normal mood. ABSENT: homicidal ideation, suicidal ideation Skin exam: PRESENT: dry, intact, warm. ABSENT: cyanosis, rash Results Laboratory Results: 09/24/17 05:51 09/24/17 05:51 09/24/17 09/24/17 05:51 05:51 WBC 10.1 RBC 3.72 L Hgb 11.8 L Hct 34.8 L MCV 94 MCH 31.6 MCHC 33.9 RDW 13.2 Plt Count 412 Sodium 135.4 L Potassium 3.8 Chloride 102 Carbon Dioxide 27 Anion Gap 6 BUN 10 Creatinine 0.76 Est GFR ( Amer) > 60 Est GFR (Non-Af Amer) > 60 Glucose 161 H Calcium 9.1 09/20/17 20:45 Blood Blood Culture - Final Mrsa (Meth Resis Staph Aureus) 09/15/17 09/16/17 09/16/17 19:42 01:44 09:09 Creatine Kinase Troponin I 0.301 0.279 0.166 09/16/17 09:09 Creatine Kinase 271 H Troponin I Impressions: Head CT 09/15/17 00:00 IMPRESSION: NORMAL BRAIN CT WITHOUT CONTRAST. EVIDENCE OF ACUTE STROKE: NO. Chest X-Ray 09/15/17 12:20 IMPRESSION: No significant interval change. No acute findings. Obstructive lung disease. Other findings as noted above Cervical Spine MRI 09/20/17 00:00 IMPRESSION: 1. DISC DISEASE WITH STENOSIS AND IMPINGEMENT DESCRIBED ABOVE. 2. NO CLEAR-CUT EVIDENCE OF OSTEOMYELITIS OR DISCITIS. NO FOCAL EPIDURAL ABSCESS. Lumbar Spine MRI 09/20/17 00:00 IMPRESSION: 1. MULTILEVEL CHRONIC DEGENERATIVE DISC DISEASE AND FACET ARTHROPATHY DESCRIBED. 2. NO MR FINDINGS SUSPICIOUS FOR VERTEBRAL OSTEOMYELITIS. NO EVIDENCE OF SOFT TISSUE ABSCESS OR EPIDURAL ABSCESS. Thoracic Spine MRI 09/20/17 00:00 IMPRESSION: UNREMARKABLE MRI THORACIC SPINE. NO FINDINGS CONCERNING FOR VERTEBRAL BODY OSTEOMYELITIS. NO GROSS EVIDENCE OF SOFT TISSUE ABSCESS OR EPIDURAL ABSCESS. Assessment & Plan - Diagnosis (1) MRSA bacteremia Plan: Clinically the patient is improved; continues to have low-grade temperatures. Heart rate and blood pressure are normal. Leukocytosis has resolved. Blood cultures (09/22/17): No Growth at 48 hrs; one dose of daptomycin and rifampin prior to this set of cultures being drawn. Repeat blood culture (09/23/17): Pending All previous blood cultures: MRSA Urine culture: MRSA MRI of the cervical, thoracic, and lumbar spine rule out potential osteomyelitis. The patient denies artificial joints, chronic skin wounds, large joint pain, cellulitis/phlebitis at previous IV sites. The patient was transitioned to daptomycin and rifampin for persistently positive MRSA blood cultures. First set of blood cultures following antibiotic change have no growth at 48 hours. Unfortunately, the patient has developed a rash since being placed on the rifampin. He also reports dark, syrup colored, urine. Will discontinue the rifampin. I did speak with [facility]; they recommend a minimum of 4 weeks of IV antibiotic therapy following negative blood cultures. I have asked discharge planning to evaluate the patient for home antibiotic infusion therapy. (2) Sepsis Qualifiers: Sepsis type: methicillin resistant Staphylococcus aureus Qualified Code(s) : A41.02 - Sepsis due to Methicillin resistant Staphylococcus aureus Is this a current diagnosis for this admission?: Yes Plan: Resolved. (3) Acute cystitis Is this a current diagnosis for this admission?: Yes Plan: Secondary to MRSA bacteremia; most likely due to seeding to the urinary tract system. Continue antibiotic therapy as above. (4) Back pain Is this a current diagnosis for this admission?: Yes Plan: Stable; no red flags. Cervical, thoracic, and lumbar spine MRIs do demonstrate degenerative disc disease with bulging disc at C5/C6 and spinal stenosis of C5 through C7, unremarkable thoracic spine, and bulging disc of L2/L3, bulging disc L3/L4 with mild spinal stenosis, bulging disc L4/L5 with moderate to severe spinal stenosis , bulging disc L5/S1 with mild spinal stenosis. No evidence of osteomyelitis. We will continue [place] and Flexeril as needed for pain. Continue Lidoderm patches. Encourage mobility. (5) COPD (chronic obstructive pulmonary disease) Qualifiers: Emphysema type: unspecified Is this a current diagnosis for this admission?: Yes Plan: Stable, no acute exacerbation present. Continue albuterol and DuoNeb treatments as needed. 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 Lantus 45 units daily with Humalog for sliding scale coverage. (7) DVT prophylaxis Is this a current diagnosis for this admission?: Yes Plan: Lovenox. (8) Debility Is this a current diagnosis for this admission?: Yes Plan: Following recurrent hospitalizations and subsequent fall at home. The patient is currently ambulating safely with a walker. We will continue to monitor and provide for patient safety. Fall precautions. (9) Falls Is this a current diagnosis for this admission?: Yes Plan: As above. Will ask PT/OT to evaluate and treat. (10) Hypomagnesemia Is this a current diagnosis for this admission?: Yes Plan: Replete. (11) Hyponatremia Is this a current diagnosis for this admission?: Yes Plan: Stable and trending upward; Likely secondary to dehydration and hyperglycemia. We will continue to monitor. (12) Leukocytosis Is this a current diagnosis for this admission?: Yes Plan: Resolved; Secondary to MRSA sepsis. Blood cultures and antibiotics as above. (13) Non-STEMI (non-ST elevated myocardial infarction) Is this a current diagnosis for this admission?: Yes Plan: Type II non-STEMI MS in the setting of sepsis. Troponins are trending down. Cardiology has signed off. (14) Diarrhea Is this a current diagnosis for this admission?: Yes Plan: Resolved. (15) Endocarditis Qualifiers: Chronicity: unspecified Is this a current diagnosis for this admission?: Yes Plan: Likely an endothelial infection; endocarditis has been ruled out as TERENCE and transthoracic echocardiogram were both negative for evidence of valvular vegetation. (16) Full code status Is this a current diagnosis for this admission?: Yes Plan: At this time, the patient remains a full code and has indicated that neither his son or significant other (Ms. Rausch) have been appointed as surrogate decision makers. The patient has been provided the MOST form for review. - Time Time Spent with patient: 25-34 minutes Medications reviewed and adjusted accordingly: Yes
[2017-09-24] MEDS: DAPTOMYCIN 600 MG in NORMAL SALINE 50 ML IV SCH (21:23)
[2017-09-24] MEDS: ACETAMINOPHEN 325 MG TABLET PO PRN (21:23)
[2017-09-25] MEDS: CYCLOBENZAPRINE HCL 10 MG TABLET PO PRN ×2 (01:20→22:22)
[2017-09-25] MEDS: HYDROCODONE/ACETAMINOPHEN 5-325 MG TABLET PO PRN ×3 (01:20→10:56)
[2017-09-25] MEDS: ACETAMINOPHEN 325 MG TABLET PO PRN ×2 (06:03→20:25)
[2017-09-25] MEDS: IPRATROPIUM/ALBUTEROL 0.5-2.5 MG/3 ML AMPUL NEB SCH ×3 (08:27→19:46)
[2017-09-25] MEDS: INSULIN LISPRO 100 UNIT/ML 3 ML VIAL SUBCUT SCH ×3 (08:51→16:14)
[2017-09-25] MEDS: INSULIN GLARGINE,HUM.REC.ANLOG 300 UNIT/3 ML INSULN.PEN SUBCUT SCH (08:51)
[2017-09-25] MEDS: ENOXAPARIN SODIUM INJ 40 MG/0.4 ML DISP.SYRIN SUBCUT SCH (10:54)
[2017-09-25] MEDS: ASPIRIN 81 MG TABLET, ENT COATED PO SCH (10:55)
[2017-09-25] MEDS: METOPROLOL SUCCINATE 25 MG TAB.SR.24H PO SCH ×2 (10:55→22:22)
[2017-09-25] MEDS: LIDOCAINE 5% (700 MG) TRANSDERMAL ADH..PATCH TP SCH (10:57)
[2017-09-25] MEDS: RANOLAZINE 500 MG TAB.SR.12H PO SCH ×2 (10:57→22:22)
[2017-09-25] MEDS: INSULIN LISPRO 100 UNIT/ML 3 ML VIAL SUBCUT PRN ×3 (12:20→22:22)
[2017-09-25] MEDS ORDERED: FUROSEMIDE 20 MG TABLET PO ONE (15:30)
[2017-09-25] MEDS: OXYCODONE HCL IR 5 MG TABLET PO PRN ×2 (16:15→20:25)
--- NOTE | 2017-09-25 16:56 | PDOC PROGRESS REPORT ---
Subjective Progress Note for:: 09/25/17 Subjective:: The patient is a pleasant 72-year-old gentleman with a past medical history of CHF, CAD, [place] in 2006 s/p CABG, hyperlipidemia, hypertension, COPD, arthritis, depression with recent hospital admission for influenza who presented to our hospital on 09/15/17 for a complaint of generalized weakness leading to a fall. The patient was unable to get up from the floor for several hours. He was found to have sepsis secondary to MRSA bacteremia. MRI imaging of cervical, MUSA , and lumbar spine have not demonstrated evidence of osteomyelitis. TERENCE completed yesterday at [facility]; per report no evidence of endocarditis. The patient is seen on morning rounds. He is found resting in the recliner on room air. He states that other than his back pain, he is feeling well. He is very frustrated by his continued pain. He denies paresthesias, radiation of pain, and extremity weakness; no red flags. He has no new questions or concerns at this time. Reason For Visit: NSTEMI, POSSIBLE SEPSIS Physical Exam Vital Signs: Temp Pulse Resp BP Pulse Ox 98.6 F 86 14 162/69 H 97 09/25/17 15:40 09/25/17 15:40 09/25/17 15:40 09/25/17 15:40 09/25/17 15:40 Intake & Output 09/24/17 09/25/17 09/26/17 06:59 06:59 06:59 Intake Total 1540 577 Output Total 200 725 Balance 1340 -148 Weight 111.9 kg 111.3 kg General appearance: PRESENT: no acute distress, well-developed, well-nourished, other - Overweight Head exam: PRESENT: atraumatic, normocephalic Eye exam: PRESENT: conjunctiva pink, EOMI, PERRLA. ABSENT: scleral icterus Ear exam: PRESENT: normal external ear exam Mouth exam: PRESENT: moist, tongue midline Neck exam: ABSENT: carotid bruit, JVD, lymphadenopathy, thyromegaly Respiratory exam: PRESENT: clear to auscultation kimmie, symmetrical, unlabored. ABSENT: rales, rhonchi, wheezes Cardiovascular exam: PRESENT: RRR, +S1, +S2, systolic murmur. ABSENT: diastolic murmur, rubs Pulses: PRESENT: normal dorsalis pedis pul Vascular exam: PRESENT: normal capillary refill GI/Abdominal exam: PRESENT: normal bowel sounds, soft. ABSENT: distended, guarding, mass, organolmegaly, rebound, tenderness Rectal exam: PRESENT: deferred Extremities exam: PRESENT: full ROM. ABSENT: calf tenderness, clubbing, pedal edema Neurological exam: PRESENT: alert, awake, oriented to person, oriented to place , oriented to time, oriented to situation, CN II-XII grossly intact. ABSENT: motor sensory deficit Psychiatric exam: PRESENT: appropriate affect, normal mood. ABSENT: homicidal ideation, suicidal ideation Skin exam: PRESENT: dry, intact, warm. ABSENT: cyanosis, rash Results Laboratory Results: 09/24/17 05:51 09/24/17 05:51 09/15/17 09/16/17 09/16/17 19:42 01:44 09:09 Creatine Kinase Troponin I 0.301 0.279 0.166 09/16/17 09:09 Creatine Kinase 271 H Troponin I Impressions: Head CT 09/15/17 00:00 IMPRESSION: NORMAL BRAIN CT WITHOUT CONTRAST. EVIDENCE OF ACUTE STROKE: NO. Chest X-Ray 09/15/17 12:20 IMPRESSION: No significant interval change. No acute findings. Obstructive lung disease. Other findings as noted above Cervical Spine MRI 09/20/17 00:00 IMPRESSION: 1. DISC DISEASE WITH STENOSIS AND IMPINGEMENT DESCRIBED ABOVE. 2. NO CLEAR-CUT EVIDENCE OF OSTEOMYELITIS OR DISCITIS. NO FOCAL EPIDURAL ABSCESS. Lumbar Spine MRI 09/20/17 00:00 IMPRESSION: 1. MULTILEVEL CHRONIC DEGENERATIVE DISC DISEASE AND FACET ARTHROPATHY DESCRIBED. 2. NO MR FINDINGS SUSPICIOUS FOR VERTEBRAL OSTEOMYELITIS. NO EVIDENCE OF SOFT TISSUE ABSCESS OR EPIDURAL ABSCESS. Thoracic Spine MRI 09/20/17 00:00 IMPRESSION: UNREMARKABLE MRI THORACIC SPINE. NO FINDINGS CONCERNING FOR VERTEBRAL BODY OSTEOMYELITIS. NO GROSS EVIDENCE OF SOFT TISSUE ABSCESS OR EPIDURAL ABSCESS. Assessment & Plan - Diagnosis (1) MRSA bacteremia Plan: Clinically the patient is improved; continues to have low-grade temperatures. Heart rate and blood pressure are normal. Leukocytosis has resolved. Blood cultures (09/22/17): No Growth at 72 hrs; one dose of daptomycin and rifampin prior to this set of cultures being drawn. Repeat blood culture (09/23/17): No growth at 24 hours. All previous blood cultures: MRSA Urine culture: MRSA MRI of the cervical, thoracic, and lumbar spine rule out potential osteomyelitis. The patient denies artificial joints, chronic skin wounds, large joint pain, cellulitis/phlebitis at previous IV sites. The patient was transitioned to daptomycin and rifampin for persistently positive MRSA blood cultures. Two sets of blood cultures following antibiotic change have no growth. Plan for PICC tomorrow or Wednesday. Rifamin discontinued yesterday secondary to mottled rash. Continues on daptomycin. [facility] recommend a minimum of 4 weeks of IV antibiotic therapy following negative blood cultures. I have asked discharge planning to evaluate the patient for home antibiotic infusion therapy. (2) Sepsis Qualifiers: Sepsis type: methicillin resistant Staphylococcus aureus Qualified Code(s) : A41.02 - Sepsis due to Methicillin resistant Staphylococcus aureus Is this a current diagnosis for this admission?: Yes Plan: Resolved. (3) Acute cystitis Is this a current diagnosis for this admission?: Yes Plan: Secondary to MRSA bacteremia; most likely due to seeding to the urinary tract system. Continue antibiotic therapy as above. (4) Back pain Is this a current diagnosis for this admission?: Yes Plan: Stable; no red flags. Cervical, thoracic, and lumbar spine MRIs do demonstrate degenerative disc disease with bulging disc at C5/C6 and spinal stenosis of C5 through C7, unremarkable thoracic spine, and bulging disc of L2/L3, bulging disc L3/L4 with mild spinal stenosis, bulging disc L4/L5 with moderate to severe spinal stenosis , bulging disc L5/S1 with mild spinal stenosis. No evidence of osteomyelitis. [place] Controlled Database reviewed; pt is not routinely prescribed pain medications. Will increase flexeril to 10 mg TID as pt is noted to have paraspinal muscle spasms. Will stop norco and try Oxycodone 5 mg q4 hours prn. Continue Lidoderm patches. Encourage mobility. (5) COPD (chronic obstructive pulmonary disease) Qualifiers: Emphysema type: unspecified Is this a current diagnosis for this admission?: Yes Plan: Stable, no acute exacerbation present. Continue albuterol and DuoNeb treatments as needed. (6) DM type 2 (diabetes mellitus, type 2) Qualifiers: Diabetes mellitus complication status: with unspecified complications Diabetes mellitus nursing home insulin use: unspecified nursing home insulin use status Qualified Code(s): E11.8 - Type 2 diabetes mellitus with unspecified complications Is this a current diagnosis for this admission?: Yes Plan: Hemoglobin A1c 11.7% The patient is placed on a consistent carb diet with Accu-Cheks before meals and at bedtime. Lantus 45 units daily with Humalog for sliding scale coverage. (7) DVT prophylaxis Is this a current diagnosis for this admission?: Yes Plan: Lovenox. (8) Debility Is this a current diagnosis for this admission?: Yes Plan: Following recurrent hospitalizations and subsequent fall at home. The patient is currently ambulating safely with a walker. We will continue to monitor and provide for patient safety. Fall precautions. (9) Falls Is this a current diagnosis for this admission?: Yes Plan: As above. Will ask PT/OT to evaluate and treat. (10) Hypomagnesemia Is this a current diagnosis for this admission?: Yes Plan: Replete. (11) Hyponatremia Is this a current diagnosis for this admission?: Yes Plan: Stable and trending upward; Likely secondary to dehydration and hyperglycemia. We will continue to monitor. (12) Leukocytosis Is this a current diagnosis for this admission?: Yes Plan: Resolved; Secondary to MRSA sepsis. Blood cultures and antibiotics as above. (13) Non-STEMI (non-ST elevated myocardial infarction) Is this a current diagnosis for this admission?: Yes Plan: Type II non-STEMI AR in the setting of sepsis. Troponins are trending down. Cardiology has signed off. (14) Diarrhea Is this a current diagnosis for this admission?: Yes Plan: Resolved. (15) Endocarditis Qualifiers: Chronicity: unspecified Is this a current diagnosis for this admission?: Yes Plan: Likely an endothelial infection; endocarditis has been ruled out as TERENCE and transthoracic echocardiogram were both negative for evidence of valvular vegetation. (16) Full code status Is this a current diagnosis for this admission?: Yes Plan: At this time, the patient remains a full code and has indicated that neither his son or significant other (Ms. Rausch) have been appointed as surrogate decision makers. The patient has been provided the MOST form for review. - Time Time Spent with patient: 25-34 minutes Medications reviewed and adjusted accordingly: Yes
[2017-09-25 21:04] LABS: APPEARANCE,URINE CLEAR; BILIRUBIN,URINE NEGATIVE (NEGATIVE); COLOR,URINE YELLOW; GLUCOSE, URINE 150 mg/dL (NEGATIVE); KETONES,URINE NEGATIVE (NEGATIVE); LEUKOCYTE ESTERASE,URINE NEGATIVE (NEGATIVE); NITRITE,URINE NEGATIVE (NEGATIVE); PROTEIN,URINE NEGATIVE (NEGATIVE); URINE SPECIFIC GRAVITY 1.013; UROBILINOGEN,URINE NEGATIVE mg/dL (<2.0)
[2017-09-25] MEDS: DAPTOMYCIN 600 MG in NORMAL SALINE 50 ML IV SCH (22:22)
[2017-09-26] MEDS: OXYCODONE HCL IR 5 MG TABLET PO PRN ×5 (00:24→20:02)
[2017-09-26] MEDS: ACETAMINOPHEN 325 MG TABLET PO PRN ×3 (00:24→20:02)
[2017-09-26] MEDS: CYCLOBENZAPRINE HCL 10 MG TABLET PO PRN ×2 (06:38→16:43)
[2017-09-26] MEDS: INSULIN GLARGINE,HUM.REC.ANLOG 300 UNIT/3 ML INSULN.PEN SUBCUT SCH (08:43)
[2017-09-26] MEDS: INSULIN LISPRO 100 UNIT/ML 3 ML VIAL SUBCUT PRN ×4 (08:46→22:06)
[2017-09-26] MEDS: INSULIN LISPRO 100 UNIT/ML 3 ML VIAL SUBCUT SCH ×3 (08:46→16:43)
[2017-09-26] MEDS: IPRATROPIUM/ALBUTEROL 0.5-2.5 MG/3 ML AMPUL NEB SCH ×3 (09:09→21:08)
[2017-09-26] MEDS: RANOLAZINE 500 MG TAB.SR.12H PO SCH ×2 (10:27→22:06)
[2017-09-26] MEDS: ENOXAPARIN SODIUM INJ 40 MG/0.4 ML DISP.SYRIN SUBCUT SCH (10:27)
[2017-09-26] MEDS: ASPIRIN 81 MG TABLET, ENT COATED PO SCH (10:27)
[2017-09-26] MEDS: METOPROLOL SUCCINATE 25 MG TAB.SR.24H PO SCH ×2 (10:27→22:06)
[2017-09-26] MEDS: LIDOCAINE 5% (700 MG) TRANSDERMAL ADH..PATCH TP SCH (10:27)
--- NOTE | 2017-09-26 13:57 | PDOC PROGRESS REPORT ---
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 The patient was unable to get up from the floor for several hours. He was found to have sepsis secondary to MRSA bacteremia. MRI imaging of cervical, MUSA , and lumbar spine have not demonstrated evidence of osteomyelitis. TERENCE completed yesterday at [place]; per report no evidence of endocarditis. The patient is seen on morning rounds. He is found resting in the recliner on room air. He states that his back pain is much improved with the change to oxycodone and increase in Flexeril. He denies paresthesias, radiation of pain, and extremity weakness; no red flags. He has no other questions or concerns at this time. Reason For Visit: NSTEMI, POSSIBLE SEPSIS Physical Exam Vital Signs: Temp Pulse Resp BP Pulse Ox 98.3 F 94 14 140/60 H 95 09/26/17 12:00 09/26/17 12:00 09/26/17 12:00 09/26/17 12:00 09/26/17 12:00 Intake & Output 09/25/17 09/26/17 09/27/17 06:59 06:59 06:59 Intake Total 577 1878 Output Total 725 700 Balance -148 1178 Weight 111.3 kg 109.8 kg General appearance: PRESENT: no acute distress, well-developed, well-nourished, other - overweight Head exam: PRESENT: atraumatic, normocephalic Eye exam: PRESENT: conjunctiva pink, EOMI, PERRLA. ABSENT: scleral icterus Ear exam: PRESENT: normal external ear exam Mouth exam: PRESENT: moist, tongue midline Neck exam: ABSENT: carotid bruit, JVD, lymphadenopathy, thyromegaly Respiratory exam: PRESENT: clear to auscultation kimmie, symmetrical, unlabored. ABSENT: rales, rhonchi, wheezes Cardiovascular exam: PRESENT: RRR, +S1, +S2, systolic murmur. ABSENT: diastolic murmur, rubs Pulses: PRESENT: normal dorsalis pedis pul Vascular exam: PRESENT: normal capillary refill GI/Abdominal exam: PRESENT: normal bowel sounds, soft. ABSENT: distended, guarding, mass, organolmegaly, rebound, tenderness Rectal exam: PRESENT: deferred Extremities exam: PRESENT: full ROM. ABSENT: calf tenderness, clubbing, pedal edema Neurological exam: PRESENT: alert, awake, oriented to person, oriented to place , oriented to time, oriented to situation, CN II-XII grossly intact. ABSENT: motor sensory deficit Psychiatric exam: PRESENT: appropriate affect, normal mood. ABSENT: homicidal ideation, suicidal ideation Skin exam: PRESENT: dry, intact, warm. ABSENT: cyanosis, rash Results Laboratory Results: 09/24/17 05:51 09/24/17 05:51 09/25/17 20:36 Urine Color YELLOW Urine Appearance CLEAR Urine pH 5.0 Ur Specific Loraine 1.013 Urine Protein NEGATIVE Urine Glucose (UA) 150 H Urine Ketones NEGATIVE Urine Blood NEGATIVE Urine Nitrite NEGATIVE Ur Leukocyte Esterase NEGATIVE Urine WBC (Auto) 2 Urine RBC (Auto) 1 09/15/17 09/16/17 09/16/17 19:42 01:44 09:09 Creatine Kinase Troponin I 0.301 0.279 0.166 09/16/17 09:09 Creatine Kinase 271 H Troponin I Impressions: Head CT 09/15/17 00:00 IMPRESSION: NORMAL BRAIN CT WITHOUT CONTRAST. EVIDENCE OF ACUTE STROKE: NO. Chest X-Ray 09/15/17 12:20 IMPRESSION: No significant interval change. No acute findings. Obstructive lung disease. Other findings as noted above Cervical Spine MRI 09/20/17 00:00 IMPRESSION: 1. DISC DISEASE WITH STENOSIS AND IMPINGEMENT DESCRIBED ABOVE. 2. NO CLEAR-CUT EVIDENCE OF OSTEOMYELITIS OR DISCITIS. NO FOCAL EPIDURAL ABSCESS. Lumbar Spine MRI 09/20/17 00:00 IMPRESSION: 1. MULTILEVEL CHRONIC DEGENERATIVE DISC DISEASE AND FACET ARTHROPATHY DESCRIBED. 2. NO MR FINDINGS SUSPICIOUS FOR VERTEBRAL OSTEOMYELITIS. NO EVIDENCE OF SOFT TISSUE ABSCESS OR EPIDURAL ABSCESS. Thoracic Spine MRI 09/20/17 00:00 IMPRESSION: UNREMARKABLE MRI THORACIC SPINE. NO FINDINGS CONCERNING FOR VERTEBRAL BODY OSTEOMYELITIS. NO GROSS EVIDENCE OF SOFT TISSUE ABSCESS OR EPIDURAL ABSCESS. Assessment & Plan - Diagnosis (1) MRSA bacteremia Plan: Clinically the patient is improved Blood cultures (09/22/17): No Growth at 4 days; one dose of daptomycin and rifampin prior to this set of cultures being drawn. Repeat blood culture (09/23/17): No growth at 48 hours. All previous blood cultures: MRSA Urine culture: MRSA MRI of the cervical, thoracic, and lumbar spine rule out potential osteomyelitis. The patient denies artificial joints, chronic skin wounds, large joint pain, cellulitis/phlebitis at previous IV sites. The patient was transitioned to daptomycin and rifampin for persistently positive MRSA blood cultures. Two sets of blood cultures following antibiotic change have no growth. Plan for PICC Wednesday. Rifamin discontinued secondary to mottled rash. Continues on daptomycin. [facility] infectious [facility] recommend a minimum of 4 weeks of IV antibiotic therapy following negative blood cultures. I have asked discharge planning to evaluate the patient for home antibiotic infusion therapy. (2) Sepsis Qualifiers: Sepsis type: methicillin resistant Staphylococcus aureus Qualified Code(s) : A41.02 - Sepsis due to Methicillin resistant Staphylococcus aureus Is this a current diagnosis for this admission?: Yes Plan: Resolved. (3) Acute cystitis Is this a current diagnosis for this admission?: Yes Plan: Secondary to MRSA bacteremia; most likely due to seeding to the urinary tract system. Continue antibiotic therapy as above. (4) Back pain Is this a current diagnosis for this admission?: Yes Plan: Improved; no red flags. Cervical, thoracic, and lumbar spine MRIs do demonstrate degenerative disc disease with bulging disc at C5/C6 and spinal stenosis of C5 through C7, unremarkable thoracic spine, and bulging disc of L2/L3, bulging disc L3/L4 with mild spinal stenosis, bulging disc L4/L5 with moderate to severe spinal stenosis , bulging disc L5/S1 with mild spinal stenosis. No evidence of osteomyelitis. [place] Controlled Database reviewed; pt is not routinely prescribed pain medications. Continue Flexeril 10 mg TID prn and Oxycodone 5 mg q4 hours prn. Continue Lidoderm patches and heating pad. Encourage mobility. (5) COPD (chronic obstructive pulmonary disease) Qualifiers: Emphysema type: unspecified Is this a current diagnosis for this admission?: Yes Plan: Stable, no acute exacerbation present. Continue albuterol and DuoNeb treatments as needed. 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 Lantus 45 units daily with Humalog for sliding scale coverage. (7) DVT prophylaxis Is this a current diagnosis for this admission?: Yes Plan: Lovenox. (8) Debility Is this a current diagnosis for this admission?: Yes Plan: Following recurrent hospitalizations and subsequent fall at home. The patient is currently ambulating safely with a walker. We will continue to monitor and provide for patient safety. Fall precautions. (9) Falls Is this a current diagnosis for this admission?: Yes Plan: As above. Will ask PT/OT to evaluate and treat. (10) Hypomagnesemia Is this a current diagnosis for this admission?: Yes Plan: Replete. (11) Hyponatremia Is this a current diagnosis for this admission?: Yes Plan: Stable and trending upward; Likely secondary to dehydration and hyperglycemia. We will continue to monitor. (12) Leukocytosis Is this a current diagnosis for this admission?: Yes Plan: Resolved; Secondary to MRSA sepsis. Blood cultures and antibiotics as above. (13) Non-STEMI (non-ST elevated myocardial infarction) Is this a current diagnosis for this admission?: Yes Plan: Type II non-STEMI NC in the setting of sepsis. Troponins are trending down. Cardiology has signed off. (14) Diarrhea Is this a current diagnosis for this admission?: Yes Plan: Resolved. (15) Endocarditis Qualifiers: Chronicity: unspecified Is this a current diagnosis for this admission?: Yes Plan: Likely an endothelial infection; endocarditis has been ruled out as TERENCE and transthoracic echocardiogram were both negative for evidence of valvular vegetation. (16) Full code status Is this a current diagnosis for this admission?: Yes Plan: At this time, the patient remains a full code and has indicated that neither his son or significant other (Ms. Rausch) have been appointed as surrogate decision makers. The patient has been provided the MOST form for review. - Time Time Spent with patient: 15-24 minutes Medications reviewed and adjusted accordingly: Yes
[2017-09-26 17:15] LABS: HEMATOCRIT 34.9 % (37.9-51.0); MEAN CORPUSCULAR HEMOGLOBIN 32.2 pg (27.0-33.4); MEAN CORPUSCULAR HGB CONC 34.3 g/dL (32.0-36.0); MEAN CORPUSCULAR VOLUME 94 fl (80-97); PLATELET COUNT 661 10^3/uL (150-450); RED BLOOD COUNT 3.72 10^6/uL (4.35-5.55); RED CELL DISTRIBUTION WIDTH 13.5 % (11.5-14.0); WHITE BLOOD COUNT 8.9 10^3/uL (4.0-10.5)
[2017-09-26 17:27] LABS: ALANINE AMINOTRANSFERASE 52 U/L (21-72); ALBUMIN 2.8 g/dL (3.5-5.0); ALKALINE PHOSPHATASE 88 U/L (38-126); ANION GAP 10 (5-19); ASPARTATE AMINO TRANSFERASE 49 U/L (17-59); BILIRUBIN,DIRECT 0.4 mg/dL (0.0-0.4); BILIRUBIN,TOTAL 0.4 mg/dL (0.2-1.3); BLOOD UREA NITROGEN 15 mg/dL (7-20); CALCIUM 9.1 mg/dL (8.4-10.2); CARBON DIOXIDE 26 mmol/L (22-30); CHLORIDE 97 mmol/L (98-107); GLUCOSE 224 mg/dL (75-110); POTASSIUM 4.6 mmol/L (3.6-5.0); SODIUM 132.8 mmol/L (137-145); TOTAL PROTEIN 6.2 g/dL (6.3-8.2)
--- NOTE | 2017-09-26 18:35 | EKG REPORT ---
SEVERITY:- ABNORMAL ECG - SINUS TACHYCARDIA VENTRICULAR PREMATURE COMPLEX RBBB AND LPFB : Confirmed by: Marilyn Pereira 26-Sep-2017 18:34:54
[2017-09-26] MEDS: DAPTOMYCIN 600 MG in NORMAL SALINE 50 ML IV SCH (22:06)
[2017-09-27] MEDS: ACETAMINOPHEN 325 MG TABLET PO PRN ×3 (00:46→17:59)
[2017-09-27] MEDS: OXYCODONE HCL IR 5 MG TABLET PO PRN ×4 (00:46→17:59)
[2017-09-27] MEDS: CYCLOBENZAPRINE HCL 10 MG TABLET PO PRN ×3 (00:46→21:19)
[2017-09-27 07:10] LABS: HEMATOCRIT 33.5 % (37.9-51.0); HEMOGLOBIN 11.6 g/dL (13.5-17.0); MEAN CORPUSCULAR HEMOGLOBIN 32.3 pg (27.0-33.4); MEAN CORPUSCULAR HGB CONC 34.5 g/dL (32.0-36.0); MEAN CORPUSCULAR VOLUME 94 fl (80-97); PLATELET COUNT 539 10^3/uL (150-450); RED BLOOD COUNT 3.58 10^6/uL (4.35-5.55); RED CELL DISTRIBUTION WIDTH 13.3 % (11.5-14.0); WHITE BLOOD COUNT 7.7 10^3/uL (4.0-10.5)
[2017-09-27] MEDS: IPRATROPIUM/ALBUTEROL 0.5-2.5 MG/3 ML AMPUL NEB SCH ×3 (08:02→21:35)
[2017-09-27] MEDS: INSULIN GLARGINE,HUM.REC.ANLOG 300 UNIT/3 ML INSULN.PEN SUBCUT SCH (08:43)
[2017-09-27] MEDS: INSULIN LISPRO 100 UNIT/ML 3 ML VIAL SUBCUT SCH ×3 (08:45→17:17)
[2017-09-27] MEDS: INSULIN LISPRO 100 UNIT/ML 3 ML VIAL SUBCUT PRN ×3 (08:46→17:19)
--- NOTE | 2017-09-27 10:21 | RADIOLOGY REPORT (SQ) ---
EXAM DESCRIPTION: PICC INSERTION; FLUORO/CV PLACEMENT; U/S GUIDE FOR VASCULAR ACCESS COMPLETED DATE/TIME: 09/27/2017 10:10 am REASON FOR STUDY: PICC for correction abx; IV ABX; IV ACCESS I21.4 NON-ST ELEVATION (NSTEMI) MYOCARD IAL INFARCTION COMPARISON: AP chest 09/15/2017 FLUOROSCOPY TIME: 1.1 minutes 1 digital chest image and 1 left upper extremity ultrasound image saved to PACS. TECHNIQUE: Fluoroscopic and ultrasound guided PICC placement. LIMITATIONS: None. PROCEDURE: After written consent and assessment were obtained, the patient was brought into the fluo roscopy room and place supine on the table. Ultrasound was used on the patient's left arm for PICC a ccess. The left arm was prepped and draped in a sterile fashion along with the ultrasound probe. The entry site was anesthetized with 1% lidocaine. A 21 gauge 7 cm needle was advanced through the skin a nd into the basilic vein under live ultrasound guidance. An ultrasound image was saved to PACS confi rming access site. A .018 guide wire was then inserted through the needle and into the venous system . The needle was the removed and an 11 blade scalpel was used to make a 1cm skin incision. A 5 fr pe el-away sheath was advanced over the wire and into the venous system. A measurement was then made usi ng the existing wire and live fluoroscopic guidance. The wire was then removed and the trimmed. The P ICC was advanced through the peel-away sheath and into the venous system. The peel-away sheath was re moved and the catheter was adhered to the patients arm with a stat lock. The catheter was then aspira irasema and flushed and a sterile bandage was placed over the access site. A fluoroscopic spot image was saved to PACS confirming the catheter tip within the superior vena cava. IMPRESSION: SUCCESSFUL PLACEMENT OF A 5 FR DUAL LUMEN 48 CM PICC IN THE LEFT BASILIC VEIN. COMMENT: Patient medication list reviewed: Yes- Quality ID# [id number]:Eligible professional attests to doc umenting in the medical record they obtained, updated, or reviewed the patient's current medications. . Quality ID 145: Final reports for procedures using fluoroscopy that document radiation exposure donn zen, or exposure time and number of fluorographic images (if radiation exposure indices are not avail able) Quality ID #[id number]: The patient was prepped and draped using maximum sterile barrier technique including cap, mask, sterile gown, sterile gloves, a large sterile sheet, hand hygiene, and 2% Chlorhexidine fo r cutaneous antisepsis. When ultrasound is used, sterile ultrasound techniques are followed requiring sterile gel and sterile probes. TECHNICAL DOCUMENTATION: JOB ID: [id number] [employer] [facility] [employer]- All Rights Reserved
[2017-09-27] MEDS: RANOLAZINE 500 MG TAB.SR.12H PO SCH ×2 (10:30→21:19)
[2017-09-27] MEDS: METOPROLOL SUCCINATE 25 MG TAB.SR.24H PO SCH ×2 (10:31→21:19)
[2017-09-27] MEDS: ASPIRIN 81 MG TABLET, ENT COATED PO SCH (10:31)
[2017-09-27] MEDS: LIDOCAINE 5% (700 MG) TRANSDERMAL ADH..PATCH TP SCH (10:32)
[2017-09-27] MEDS: ENOXAPARIN SODIUM INJ 40 MG/0.4 ML DISP.SYRIN SUBCUT SCH (13:12)
[2017-09-27] MEDS ORDERED: ONDANSETRON HCL INJ/PF 4 MG/2 ML SDV IV PRN (14:30)
[2017-09-27] MEDS ORDERED: NORMAL SALINE 10 ML SDV (AFTER EACH USE) IV PRN (16:09)
--- NOTE | 2017-09-27 16:09 | PDOC PROGRESS REPORT ---
Subjective Progress Note for:: 09/27/17 Subjective:: The patient is a pleasant 72-year-old gentleman with a past medical history of CHF, CAD, NM in 2006 s/p CABG, hyperlipidemia, hypertension, COPD, arthritis, depression with recent hospital admission for influenza who presented to our hospital on 09/15/17 for a complaint of generalized weakness leading to a fall. The patient was unable to get up from the floor for several hours. He was found to have sepsis secondary to MRSA bacteremia. MRI imaging of cervical, MUSA , and lumbar spine have not demonstrated evidence of osteomyelitis. TERENCE completed yesterday at [place]; per report no evidence of endocarditis. The patient is seen on morning rounds. He is found resting in the recliner on room air with friends present. He states that his back pain continues to improve. He states that the pain is localized to a baseball size area in his mid back. He denies paresthesias, radiation of pain, and extremity weakness; no red flags. He does ask about the timing of his discharge now that he has his PICC line; he is full to be discharged to home for home infusions in the near future. He has no other questions or concerns at this time. Reason For Visit: NSTEMI, POSSIBLE SEPSIS Physical Exam Vital Signs: Temp Pulse Resp BP Pulse Ox 99.0 F 79 15 148/69 H 97 09/27/17 07:41 09/27/17 14:00 09/27/17 13:44 09/27/17 07:41 09/27/17 07:41 Intake & Output 09/26/17 09/27/17 09/28/17 06:59 06:59 06:59 Intake Total 1878 1928 Output Total 700 750 Balance 1178 1178 Weight 109.8 kg 109.8 kg General appearance: PRESENT: no acute distress, cooperative, well-developed, well-nourished Head exam: PRESENT: atraumatic, normocephalic Eye exam: PRESENT: conjunctiva pink, EOMI, PERRLA. ABSENT: scleral icterus Ear exam: PRESENT: normal external ear exam Mouth exam: PRESENT: moist, tongue midline Neck exam: ABSENT: carotid bruit, JVD, lymphadenopathy, thyromegaly Respiratory exam: PRESENT: clear to auscultation ikmmie, symmetrical, unlabored. ABSENT: rales, rhonchi, wheezes Cardiovascular exam: PRESENT: RRR, +S1, +S2, systolic murmur. ABSENT: diastolic murmur, rubs Pulses: PRESENT: normal dorsalis pedis pul Vascular exam: PRESENT: normal capillary refill GI/Abdominal exam: PRESENT: normal bowel sounds, soft. ABSENT: distended, guarding, mass, organolmegaly, rebound, tenderness Rectal exam: PRESENT: deferred Extremities exam: PRESENT: full ROM. ABSENT: calf tenderness, clubbing, pedal edema Neurological exam: PRESENT: alert, awake, oriented to person, oriented to place , oriented to time, oriented to situation, CN II-XII grossly intact. ABSENT: motor sensory deficit Psychiatric exam: PRESENT: appropriate affect, normal mood. ABSENT: homicidal ideation, suicidal ideation Skin exam: PRESENT: dry, intact, warm. ABSENT: cyanosis, rash Results Laboratory Results: 09/27/17 06:52 09/26/17 16:37 09/26/17 09/26/17 09/27/17 16:37 16:37 06:52 WBC 8.9 7.7 RBC 3.72 L 3.58 L Hgb 12.0 L 11.6 L Hct 34.9 L 33.5 L MCV 94 94 MCH 32.2 32.3 MCHC 34.3 34.5 RDW 13.5 13.3 Plt Count 661 H 539 H Sodium 132.8 L Potassium 4.6 Chloride 97 L Carbon Dioxide 26 Anion Gap 10 BUN 15 Creatinine 0.91 Est GFR ( Amer) > 60 Est GFR (Non-Af Amer) > 60 Glucose 224 H Calcium 9.1 Magnesium 1.8 Total Bilirubin 0.4 AST 49 ALT 52 Alkaline Phosphatase 88 Total Protein 6.2 L Albumin 2.8 L 09/22/17 07:07 Blood Blood Culture - Final NO GROWTH IN 5 DAYS 09/22/17 05:38 Blood Blood Culture - Final NO GROWTH IN 5 DAYS 09/15/17 09/16/17 09/16/17 19:42 01:44 09:09 Creatine Kinase Troponin I 0.301 0.279 0.166 09/16/17 09/26/17 09:09 16:37 Creatine Kinase 271 H Troponin I < 0.012 Impressions: Head CT 09/15/17 00:00 IMPRESSION: NORMAL BRAIN CT WITHOUT CONTRAST. EVIDENCE OF ACUTE STROKE: NO. Chest X-Ray 09/15/17 12:20 IMPRESSION: No significant interval change. No acute findings. Obstructive lung disease. Other findings as noted above Cervical Spine MRI 09/20/17 00:00 IMPRESSION: 1. DISC DISEASE WITH STENOSIS AND IMPINGEMENT DESCRIBED ABOVE. 2. NO CLEAR-CUT EVIDENCE OF OSTEOMYELITIS OR DISCITIS. NO FOCAL EPIDURAL ABSCESS. Lumbar Spine MRI 09/20/17 00:00 IMPRESSION: 1. MULTILEVEL CHRONIC DEGENERATIVE DISC DISEASE AND FACET ARTHROPATHY DESCRIBED. 2. NO MR FINDINGS SUSPICIOUS FOR VERTEBRAL OSTEOMYELITIS. NO EVIDENCE OF SOFT TISSUE ABSCESS OR EPIDURAL ABSCESS. Thoracic Spine MRI 09/20/17 00:00 IMPRESSION: UNREMARKABLE MRI THORACIC SPINE. NO FINDINGS CONCERNING FOR VERTEBRAL BODY OSTEOMYELITIS. NO GROSS EVIDENCE OF SOFT TISSUE ABSCESS OR EPIDURAL ABSCESS. Guidance Fluoroscopy 09/27/17 00:00 IMPRESSION: SUCCESSFUL PLACEMENT OF A 5 FR DUAL LUMEN 48 CM PICC IN THE LEFT BASILIC VEIN. Interventional Vascular Procedure 09/27/17 00:00 IMPRESSION: SUCCESSFUL PLACEMENT OF A 5 FR DUAL LUMEN 48 CM PICC IN THE LEFT BASILIC VEIN. PICC Line Insertion 09/27/17 00:00 IMPRESSION: SUCCESSFUL PLACEMENT OF A 5 FR DUAL LUMEN 48 CM PICC IN THE LEFT BASILIC VEIN. Assessment & Plan - Diagnosis (1) MRSA bacteremia Plan: Clinically the patient is improved Blood cultures (09/22/17): No Growth at 5 days; one dose of daptomycin and rifampin prior to this set of cultures being drawn. Repeat blood culture (09/23/17): No growth at 72 hours. All previous blood cultures: MRSA Urine culture: MRSA MRI of the cervical, thoracic, and lumbar spine rule out potential osteomyelitis. The patient denies artificial joints, chronic skin wounds, large joint pain, cellulitis/phlebitis at previous IV sites. Continue daptomycin through October 20, 2017. Patient should have weakly creatinine kinase while on therapy. I have asked discharge planning to evaluate the patient for home antibiotic infusion therapy. Patient is ready for discharge once antibiotic plan has been established. (2) Sepsis Qualifiers: Sepsis type: methicillin resistant Staphylococcus aureus Qualified Code(s) : A41.02 - Sepsis due to Methicillin resistant Staphylococcus aureus Is this a current diagnosis for this admission?: Yes Plan: Resolved. (3) Acute cystitis Is this a current diagnosis for this admission?: Yes Plan: Secondary to MRSA bacteremia; most likely due to seeding to the urinary tract system. Continue antibiotic therapy as above. (4) Back pain Is this a current diagnosis for this admission?: Yes Plan: Improved; no red flags. Cervical, thoracic, and lumbar spine MRIs do demonstrate degenerative disc disease with bulging disc at C5/C6 and spinal stenosis of C5 through C7, unremarkable thoracic spine, and bulging disc of L2/L3, bulging disc L3/L4 with mild spinal stenosis, bulging disc L4/L5 with moderate to severe spinal stenosis , bulging disc L5/S1 with mild spinal stenosis. No evidence of osteomyelitis. [facility] Database reviewed; pt is not routinely prescribed pain medications. Continue Flexeril 10 mg TID prn and Oxycodone 5 mg q4 hours prn. Continue Lidoderm patches and heating pad. Encourage mobility. (5) COPD (chronic obstructive pulmonary disease) Qualifiers: Emphysema type: unspecified Is this a current diagnosis for this admission?: Yes Plan: Stable, no acute exacerbation present. Continue albuterol and DuoNeb treatments as needed. 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 Lantus with Humalog for sliding scale coverage. (7) DVT prophylaxis Is this a current diagnosis for this admission?: Yes Plan: Lovenox. (8) Debility Is this a current diagnosis for this admission?: Yes Plan: Improved. Following recurrent hospitalizations and subsequent fall at home. The patient is currently ambulating safely with a walker. We will continue to monitor and provide for patient safety. Fall precautions. (9) Falls Is this a current diagnosis for this admission?: Yes Plan: As above. Will ask PT/OT to evaluate and treat. (10) Hypomagnesemia Is this a current diagnosis for this admission?: Yes Plan: Replete. (11) Hyponatremia Is this a current diagnosis for this admission?: Yes Plan: Stable and trending upward; Likely secondary to dehydration and hyperglycemia. We will continue to monitor. (12) Leukocytosis Is this a current diagnosis for this admission?: Yes Plan: Resolved; Secondary to MRSA sepsis. Blood cultures and antibiotics as above. (13) Non-STEMI (non-ST elevated myocardial infarction) Is this a current diagnosis for this admission?: Yes Plan: Type II non-STEMI NM in the setting of sepsis. Troponins are trending down. Cardiology has signed off. (14) Diarrhea Is this a current diagnosis for this admission?: Yes Plan: Resolved. (15) Endocarditis Qualifiers: Chronicity: unspecified Is this a current diagnosis for this admission?: Yes Plan: Likely an endothelial infection; endocarditis has been ruled out as TERENCE and transthoracic echocardiogram were both negative for evidence of valvular vegetation. (16) Full code status Is this a current diagnosis for this admission?: Yes Plan: At this time, the patient remains a full code and has indicated that neither his son or significant other (Ms. Rausch) have been appointed as surrogate decision makers. The patient has been provided the MOST form for review. - Time Time Spent with patient: 25-34 minutes Medications reviewed and adjusted accordingly: Yes Anticipated discharge: Home Within: Other - Needs outpatient antibiotic therapy 4 weeks.
[2017-09-27] MEDS: NORMAL SALINE 10 ML SDV (SCHEDULED) IV SCH (21:19)
[2017-09-27] MEDS: DAPTOMYCIN 600 MG in NORMAL SALINE 50 ML IV SCH (21:19)
[2017-09-27] MEDS ORDERED: PHARMACY COMMUNICATION ORDER MC SCH (22:00)
[2017-09-28] MEDS: OXYCODONE HCL IR 5 MG TABLET PO PRN ×3 (01:59→11:45)
[2017-09-28] MEDS: ACETAMINOPHEN 325 MG TABLET PO PRN ×3 (02:00→11:45)
[2017-09-28 05:49] LABS: ANION GAP 10 (5-19); BLOOD UREA NITROGEN 17 mg/dL (7-20); CARBON DIOXIDE 25 mmol/L (22-30); CHLORIDE 101 mmol/L (98-107); CREATINE KINASE 30 U/L (55-170); GLUCOSE 189 mg/dL (75-110); POTASSIUM 4.6 mmol/L (3.6-5.0); SODIUM 135.7 mmol/L (137-145)
[2017-09-28] MEDS: INSULIN GLARGINE,HUM.REC.ANLOG 300 UNIT/3 ML INSULN.PEN SUBCUT SCH (08:00)
[2017-09-28] MEDS: INSULIN LISPRO 100 UNIT/ML 3 ML VIAL SUBCUT SCH ×3 (08:03→17:06)
[2017-09-28] MEDS: INSULIN LISPRO 100 UNIT/ML 3 ML VIAL SUBCUT PRN ×3 (08:03→17:09)
[2017-09-28 08:19] LABS: APPEARANCE,URINE CLEAR; BILIRUBIN,URINE NEGATIVE (NEGATIVE); COLOR,URINE YELLOW; GLUCOSE, URINE 50 mg/dL (NEGATIVE); KETONES,URINE NEGATIVE (NEGATIVE); LEUKOCYTE ESTERASE,URINE TRACE (NEGATIVE); NITRITE,URINE NEGATIVE (NEGATIVE); PROTEIN,URINE NEGATIVE (NEGATIVE); URINE SPECIFIC GRAVITY 1.014; UROBILINOGEN,URINE NEGATIVE mg/dL (<2.0)
[2017-09-28] MEDS: METOPROLOL SUCCINATE 25 MG TAB.SR.24H PO SCH (09:06)
[2017-09-28] MEDS: RANOLAZINE 500 MG TAB.SR.12H PO SCH (09:06)
[2017-09-28] MEDS: ASPIRIN 81 MG TABLET, ENT COATED PO SCH (09:06)
[2017-09-28] MEDS: ENOXAPARIN SODIUM INJ 40 MG/0.4 ML DISP.SYRIN SUBCUT SCH (09:08)
[2017-09-28] MEDS: NORMAL SALINE 10 ML SDV (SCHEDULED) IV SCH (09:08)
[2017-09-28] MEDS: LIDOCAINE 5% (700 MG) TRANSDERMAL ADH..PATCH TP SCH (09:10)
[2017-09-28] MEDS: IPRATROPIUM/ALBUTEROL 0.5-2.5 MG/3 ML AMPUL NEB SCH ×3 (09:45→20:28)
[2017-09-28] MEDS ORDERED: DAPTOMYCIN 600 MG in NORMAL SALINE 50 ML IV ONE (18:00)
[2017-09-28 18:27] VITALS: BP 135/61
--- NOTE | 2017-10-28 09:48 | PDOC DISCHARGE SUMMARY ---
General - Admit/Disc Date/PCP Admission Date/Primary Care Provider: 09/15/17 17:56 Discharge Date: 09/28/18 - Discharge Diagnosis (1) MRSA bacteremia Is this a current diagnosis for this admission?: Yes Summary: Patient admitted on September 15, 2017 for sepsis secondary to MRSA bacteremia. Unclear etiology. TERENCE and transthoracic echocardiogram both negative for valvular vegetation. Thought to be secondary to an endothelial infection. Multiple blood cultures (09/15-09/20) positive for MRSA. Urine cultures positive for MRSA. MRI of the cervical, thoracic, lumbar spine completed to rule out potential osteomyelitis. Patient denies any artificial joints, chronic skin wounds, large joint pain, cellulitis/phlebitis at previous IV sites. [facility] consulted, they recommended 4 weeks of IV antibiotics following negative blood cultures. Blood cultures from September 22, 2017 showed no growth. Repeat cultures from September 23, 2017 showed no growth. Plan to discharge patient home on IV daptomycin, per [facility] infectious [facility] recommendations. The patient will need a total of 4 weeks of IV antibiotic therapy, terminating October 20, 2017. Creatinine kinase and renal function will need to be monitored. (2) Acute cystitis Is this a current diagnosis for this admission?: Yes Summary: Secondary to MRSA bacteremia. Most likely seeding to the urinary tract system. Patient does not require additional antibiotic therapy for acute cystitis. Plan for IV antibiotic regimen as stated above. (3) Endocarditis Is this a current diagnosis for this admission?: Yes Summary: Likely endothelial infection. Endocarditis has been ruled out by TERENCE and transthoracic echocardiogram. Both were negative for valvular vegetation. (4) Non-STEMI (non-ST elevated myocardial infarction) Is this a current diagnosis for this admission?: Yes Summary: Type II non-STEMI [place] in the setting of sepsis. Troponin peaked at 0.3. EKG showed normal sinus rhythm, no evidence of acute infarct or ischemia. TTE completed, shows grade 2 diastolic dysfunction. Mild aortic valve calcification and regurgitation. Left ventricular ejection fraction within normal limits. Patient does have severe coronary artery disease and will require cardiology follow-up post discharge. - Additional Information Resuscitation Status: Full Code Discharge Diet: As Tolerated Discharge Activity: Activity As Tolerated, No Lifting Over 10 Pounds Prescriptions: Daptomycin [Cubicin Inj 500 mg Vial] 600 mg IV DAILY #30 vial Home Medications: Albuterol Sulfate [Proair Respiclick] 90 mcg IH PRN PRN 09/16/17 Albuterol Sulfate [Proventil Hfa] 2 puff IH QIDP PRN 09/16/17 Albuterol Sulfate [Ventolin 0.083% Neb 2.5 mg/3 mL Ampul] 1 vial NEB PRN PRN 03/26 Apixaban [Eliquis] 5 mg PO DAILY 09/16/17 Atorvastatin Calcium [Lipitor 80 mg Tablet] 40 mg PO QHS 09/16/17 Clopidogrel Bisulfate [Plavix 75 mg Tablet] 75 mg PO DAILY 09/16/17 Fluticasone Propionate [Flonase Nasal [place] 50 Mcg/[place] 16 gm] 1 spray NASL DAILYP PRN 09/16/17 Glipizide [Glucotrol 5 mg Tablet] 5 mg PO BID 09/16/17 Guaifenesin [Mucinex] 400 mg PO QID 09/16/17 Hydrochlorothiazide [Hydrodiuril 25 mg Tablet] 25 mg PO DAILY 09/16/17 Insulin Detemir [Levemir Flextouch] 25 unit SQ QHS 09/16/17 Lisinopril [Prinivil 40 mg Tablet] 40 mg PO DAILY 09/16/17 Metoprolol Tartrate [Lopressor 50 mg Tablet] 50 mg PO Q12 09/16/17 Polyethylene Glycol 3350 [Miralax Powder 17 gm/Packet] 1 packet PO DAILY Terazosin HCl [Hytrin] 2 mg PO QHS 09/16/17 Daptomycin [Cubicin Inj 500 mg Vial] 600 mg IV DAILY #30 vial 09/28/17 History of Present Illness History of Present Illness: NELY WILLARD is a 72 year old male who presented to the emergency department on September 15 with generalized weakness leading to a fall. It was determined that the patient had sepsis secondary to MRSA bacteremia. Etiology unclear. MRI imaging of cervical, MUSA, and lumbar spine have not demonstrated evidence of osteomyelitis. TERENCE and TTE completed, showed no evidence of valvular vegetation. Patient experienced a type II non-STEMI, believed to be secondary to sepsis. [facility] was consulted, they recommended 4 weeks of antibiotics following negative blood cultures. On September 22, the first set of negative blood cultures grew out. Repeat negative blood cultures on September 23. Following this, a PICC line was placed and the patient was prepped for discharge with a plan for 4 weeks of IV antibiotics. This includes regular visits to the primary care doctor while receiving IV therapy. PMH includes CHF, CAD, [place] in 2006, s/p CABG, hyperlipidemia, HTN, COPD, arthritis, depression. Recent hospital admission for influenza. Hospital Course Hospital Course: As above Physical Exam Vital Signs: Temp Pulse Resp BP Pulse Ox 98.1 F 93 20 135/61 H 96 09/28/17 18:21 09/28/17 18:21 09/28/17 18:21 09/28/17 18:21 09/28/17 18:21 General appearance: PRESENT: no acute distress Head exam: PRESENT: atraumatic Eye exam: PRESENT: conjunctiva pink Teeth exam: PRESENT: poor dentation Neck exam: PRESENT: full ROM Respiratory exam: PRESENT: clear to auscultation kimmie, symmetrical, unlabored Cardiovascular exam: PRESENT: +S1, +S2 Pulses: PRESENT: normal radial pulses, normal dorsalis pedis pul GI/Abdominal exam: PRESENT: normal bowel sounds Rectal exam: PRESENT: deferred Neurological exam: PRESENT: alert, awake, oriented to person, oriented to place , oriented to time, oriented to situation Psychiatric exam: PRESENT: appropriate affect Results Laboratory Results: 09/27/17 06:52 09/28/17 05:17 09/15/17 09/16/17 09/16/17 19:42 01:44 09:09 Creatine Kinase Troponin I 0.301 0.279 0.166 09/16/17 09/26/17 09/28/17 09:09 16:37 05:17 Creatine Kinase 271 H 30 L Troponin I < 0.012 Impressions: Head CT 09/15/17 00:00 IMPRESSION: NORMAL BRAIN CT WITHOUT CONTRAST. EVIDENCE OF ACUTE STROKE: NO. Chest X-Ray 09/15/17 12:20 IMPRESSION: No significant interval change. No acute findings. Obstructive lung disease. Other findings as noted above Cervical Spine MRI 09/20/17 00:00 IMPRESSION: 1. DISC DISEASE WITH STENOSIS AND IMPINGEMENT DESCRIBED ABOVE. 2. NO CLEAR-CUT EVIDENCE OF OSTEOMYELITIS OR DISCITIS. NO FOCAL EPIDURAL ABSCESS. Lumbar Spine MRI 09/20/17 00:00 IMPRESSION: 1. MULTILEVEL CHRONIC DEGENERATIVE DISC DISEASE AND FACET ARTHROPATHY DESCRIBED. 2. NO MR FINDINGS SUSPICIOUS FOR VERTEBRAL OSTEOMYELITIS. NO EVIDENCE OF SOFT TISSUE ABSCESS OR EPIDURAL ABSCESS. Thoracic Spine MRI 09/20/17 00:00 IMPRESSION: UNREMARKABLE MRI THORACIC SPINE. NO FINDINGS CONCERNING FOR VERTEBRAL BODY OSTEOMYELITIS. NO GROSS EVIDENCE OF SOFT TISSUE ABSCESS OR EPIDURAL ABSCESS. Guidance Fluoroscopy 09/27/17 00:00 IMPRESSION: SUCCESSFUL PLACEMENT OF A 5 FR DUAL LUMEN 48 CM PICC IN THE LEFT BASILIC VEIN. Interventional Vascular Procedure 09/27/17 00:00 IMPRESSION: SUCCESSFUL PLACEMENT OF A 5 FR DUAL LUMEN 48 CM PICC IN THE LEFT BASILIC VEIN. PICC Line Insertion 09/27/17 00:00 IMPRESSION: SUCCESSFUL PLACEMENT OF A 5 FR DUAL LUMEN 48 CM PICC IN THE LEFT BASILIC VEIN. Status: Imported from [facility] - * [facility] BEING DISCHARGED WITH ANY OF THE FOLLOWING DIAGNOSIS?: No Plan Discharge Plan: Now the PICC line has been placed, the plan is to discharge the patient home on IV antibiotics for 4 weeks. Patient will receive his daily infusions at [facility]. The patient will require follow-up visits with his primary care doctor during, and upon completion of, IV antibiotic regimen. The patient states that he understands the discharge plan. Prior to discharge, the patient stated that all of his questions have been answered. Time Spent: Greater than 30 Minutes
== END 2017-09-28 19:10 | disposition home or self-care (01) | DRG 871 ==
LOC: ER 12:04 → OBSVTOIN 17:56 → INTOOBSV 17:56 → EH 17:56 → 3N 22:54 → 4S 09-16 22:25
PROVIDERS: ADMIT Emergency Medicine; ATTEND Emergency Medicine
PROC: 02HV33Z Insertion of Infusion Device into Superior Vena Cava, Percutaneous Approach (ICD-10-PCS; principal; 2017-09-27)
PROC: B5181ZA Fluoroscopy of Superior Vena Cava using Low Osmolar Contrast, Guidance (ICD-10-PCS; 2017-09-27)
PROC: B548ZZA Ultrasonography of Superior Vena Cava, Guidance (ICD-10-PCS; 2017-09-27)
DX: A41.02 Sepsis due to Methicillin resistant Staphylococcus aureus (principal); I21.A1 Myocardial infarction type 2; I38 Endocarditis, valve unspecified; M50.022 Cervical disc disorder at C5-C6 level with myelopathy; E87.1 Hypo-osmolality and hyponatremia; E83.42 Hypomagnesemia; J44.1 Chronic obstructive pulmonary disease with (acute) exacerbation; N30.00 Acute cystitis without hematuria; I11.0 Hypertensive heart disease with heart failure; I50.9 Heart failure, unspecified; I25.10 Atherosclerotic heart disease of native coronary artery without angina pectoris; E78.5 Hyperlipidemia, unspecified; J44.9 Chronic obstructive pulmonary disease, unspecified; M19.90 Unspecified osteoarthritis, unspecified site; F32.9 Major depressive disorder, single episode, unspecified; I45.10 Unspecified right bundle-branch block; E11.9 Type 2 diabetes mellitus without complications; E86.0 Dehydration; R00.0 Tachycardia, unspecified; M50.30 Other cervical disc degeneration, unspecified cervical region; M48.02 Spinal stenosis, cervical region; M48.07 Spinal stenosis, lumbosacral region; I25.2 Old myocardial infarction; Z95.1 Presence of aortocoronary bypass graft; Z60.2 Problems related to living alone; Z79.899 Other long term (current) drug therapy; Z79.4 Long term (current) use of insulin; Z88.3 Allergy status to other anti-infective agents; Z82.49 Family history of ischemic heart disease and other diseases of the circulatory system; Z91.81 History of falling
CPT/HCPCS: 36415; 36569; 70450; 71045; 72141; 72142; 72146; 72148; 76937; 77001; 80048; 80053; 80076; 80202; 81001; 82140; 82550; 82962; 83036; 83605; 83735; 84484; 85025; 85027; 85610; 86710; 87040; 87077; 87086; 87088; 87186; 87804; 93005; 93010; 93306; 94640; 96360; 96361; 99285; A9577; G0378; G8978-GP; G8979-GP; G8987-GO; G8988-GO; G8989-GO; J0878; J1642; J1650; J1815; J3370; J3475; J3490; J7030; J7050; J7060; J7120; J7620

== ENCOUNTER 2018-07-09 15:31 | Inpatient (IN) | payer MEDICARE, MEDICAID ==
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
[2018-07-09] MEDS ORDERED: CYCLOBENZAPRINE HCL 10 MG TABLET PO ONE (15:57)
[2018-07-09 16:16] LABS: APPEARANCE,URINE CLEAR; BILIRUBIN,URINE NEGATIVE (NEGATIVE); COLOR,URINE YELLOW; GLUCOSE, URINE NEGATIVE (NEGATIVE); KETONES,URINE NEGATIVE (NEGATIVE); LEUKOCYTE ESTERASE,URINE NEGATIVE (NEGATIVE); NITRITE,URINE NEGATIVE (NEGATIVE); PROTEIN,URINE NEGATIVE (NEGATIVE); URINE SPECIFIC GRAVITY 1.017
[2018-07-09] MEDS ORDERED: OXYCODONE-ACETAMINOPHEN 5-325 MG TABLET PO ONE (17:48)
[2018-07-09] MEDS ORDERED: HYDROCODONE/ACETAMINOPHEN 5-325 MG (6 TAB/ER DISP) PO PRN (20:58)
[2018-07-09] MEDS ORDERED: NORMAL SALINE 500 ML IV ONE (21:04)
[2018-07-09] MEDS ORDERED: VANCOMYCIN HCL INJ 1000 MG VIAL IV ONE (21:09)
[2018-07-09] MEDS ORDERED: CEFEPIME 1 GM/D5W RTU 1 GM/50 ML RTUPB IV ONE (21:10)
[2018-07-09 21:36] LABS: ABSOLUTE LYMPHOCYTES (AUTO) 1.8 10^3/uL (0.5-4.7); ABSOLUTE MONOCYTES (AUTO) 1.3 10^3/uL (0.1-1.4); ABSOLUTE NEUT (AUTO) 10.4 10^3/uL (1.7-8.2); BASOPHILS % (AUTO) 0.2 % (0-2); HEMATOCRIT 35.1 % (37.9-51.0); HEMOGLOBIN 11.9 g/dL (13.5-17.0); LYMPHOCYTES % (AUTO) 13.2 % (13-45); MEAN CORPUSCULAR HEMOGLOBIN 33.3 pg (27.0-33.4); MEAN CORPUSCULAR VOLUME 98 fl (80-97); MONOCYTES % (AUTO) 9.5 % (3-13); PLATELET COUNT 322 10^3/uL (150-450); RED BLOOD COUNT 3.59 10^6/uL (4.35-5.55); RED CELL DISTRIBUTION WIDTH 14.5 % (11.5-14.0); SEGMENTED NEUTROPHILS % (AUTO) 77.1 % (42-78); TOTAL CELLS COUNTED % (AUTO) 100 %; WHITE BLOOD COUNT 13.5 10^3/uL (4.0-10.5)
[2018-07-09 21:41] LABS: INTERNATIONAL RATION (INR) 1.47; PROTHROMBIN TIME 18.5 SEC (11.4-15.4)
[2018-07-09 21:48] LABS: ALANINE AMINOTRANSFERASE 19 U/L (21-72); ALKALINE PHOSPHATASE 57 U/L (38-126); ANION GAP 13 (5-19); ASPARTATE AMINO TRANSFERASE 19 U/L (17-59); BILIRUBIN,DIRECT 0.5 mg/dL (0.0-0.4); BILIRUBIN,TOTAL 1.3 mg/dL (0.2-1.3); BLOOD UREA NITROGEN 27 mg/dL (7-20); CALCIUM 9.2 mg/dL (8.4-10.2); CARBON DIOXIDE 22 mmol/L (22-30); CHLORIDE 106 mmol/L (98-107); GLUCOSE 120 mg/dL (75-110); POTASSIUM 3.7 mmol/L (3.6-5.0); SODIUM 140.9 mmol/L (137-145); TOTAL PROTEIN 5.8 g/dL (6.3-8.2)
--- NOTE | 2018-07-09 22:08 | RADIOLOGY REPORT (SQ) ---
EXAM DESCRIPTION: XR CHEST 2 VIEWS COMPLETED DATE/TME: 07/09/2018 00:00 CLINICAL HISTORY: 73 years, Male, fever Findings: Heart is borderline enlarged. No consolidation or pleural effusion. No pulmonary edema or pneumothorax. Status post median sternotomy. IMPRESSION: No acute disease.
--- NOTE | 2018-07-09 22:33 | EKG REPORT ---
SEVERITY:- ABNORMAL ECG - SINUS RHYTHM RBBB AND LPFB : Confirmed by: Evan Huff MD 09-Jul-2018 22:32:55
[2018-07-09] MEDS ORDERED: IPRATROPIUM/ALBUTEROL 0.5-2.5 MG/3 ML AMPUL NEB PRN (22:58)
[2018-07-09] MEDS ORDERED: PROMETHAZINE HCL INJ 25 MG/1 ML VIAL IV PRN (22:58)
[2018-07-09] MEDS ORDERED: TEMAZEPAM 15 MG CAPSULE PO PRN (22:58)
[2018-07-09] MEDS ORDERED: PROMETHAZINE HCL 25 MG TABLET PO PRN (22:58)
[2018-07-09] MEDS ORDERED: MAG HYDROX/AL HYDROX/SIMETH SUSP 30 ML UDCUP PO PRN (22:58)
[2018-07-09] MEDS ORDERED: LEVOFLOXACIN 750 MG/D5W RTU 750 MG/150 ML RTUPB IV ONE (23:00)
[2018-07-09] MEDS ORDERED: HYDROMORPHONE HCL INJ/PF 2 MG/ML AMPULE IV PRN (23:10)
[2018-07-09] MEDS ORDERED: PIPERACILLIN/TAZOBACTAM 3.375 GM VIAL IV PRN (23:16)
[2018-07-09 23:41] LABS: URINE AMPHETAMINES SCREEN NEGATIVE; URINE BARBITURATES SCREEN NEGATIVE; URINE BENZODIAZEPINES SCREEN NEGATIVE; URINE COCAINE SCREEN NEGATIVE; URINE MARIJUANA (THC) SCREEN NEGATIVE; URINE METHADONE SCREEN NEGATIVE; URINE PHENCYCLIDINE SCREEN NEGATIVE
--- NOTE | 2018-07-09 23:45 | PDOC H&P ---
History of Present Illness Admission Date/PCP: 07/09/18 23:01 JOSE NETTLES MD Patient complains of: Lower back pain History of Present Illness: NELY WILLARD is a 73 year old male with medical history remarkable for 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 Alma Rosa in [facility] critically ill and was found with a lumbar abscess and psoas abscess, patient is currently following with infectious diseases who placed him on p.o. daptomycin and doxycycline as he had a remanent psoas abscess, he stopped taking his medications a month ago as he did not refill them. Comes with persistent lower back pain since last Wednesday that has been worsening by been up to 10/10 in intensity today, he was unable to move secondary to excruciating pain, this is radiated to his lower abdomen, right groin and right leg. Patient has history of chronic back pain but never any pain light disease and he had a nerve block to 4 years ago, patient is most of the time wheelchair bound but is able to walk with a walker. Patient also refers chills and upon arrival to the emergency department temperature was 101.2. Also complains of mild shortness of breath, denies cough , phlegm, wheezing but he can hear some expiratory wheezing during my evaluation. Denies chest pain, diarrhea or constipation, dysuria hematuria frequency. In the emergency department given IV cefepime, IV vancomycin and IV Levaquin. Past Medical History Cardiac Medical History: Reports: Congestive Heart Failure, Coronary Artery Disease, Myocardial Infarction, Hyperlipidema, Hypertension Pulmonary Medical History: Reports: Asthma, Bronchitis, Chronic Obstructive Pulmonary Disease (COPD), Pneumonia Neurological Medical History: Denies: Seizures GI Medical History: Reports: Hiatal Hernia Musculoskeltal Medical History: Reports: Arthritis Psychiatric Medical History: Reports: Depression, Tobacco Dependency Hematology: Denies: Anemia Infectious Medical History: Reports: Methicillin-Resistant Staph Aureus - Bacteremia Past Surgical History Past Surgical History: Reports: Coronary Artery Bypass Graft, Herniorrhaphy, Pacemaker Social History Lives with: Family Smoking Status: Former Smoker Frequency of Alcohol Use: None Hx Recreational Drug Use: No Hx Prescription Drug Abuse: No Past Social History Note: Patient lives alone. Family History Family History: CAD, Hypertension Parental Family History Reviewed: Yes Children Family History Reviewed: Yes Sibling(s) Family History Reviewed.: Yes Medication/Allergy Home Medications: Albuterol Sulfate [Proair Respiclick] 90 mcg IH PRN PRN 09/16/17 Albuterol Sulfate [Proventil Hfa] 2 puff IH QIDP PRN 09/16/17 Albuterol Sulfate [Ventolin 0.083% Neb 2.5 mg/3 mL Ampul] 1 vial NEB PRN PRN 03/26 Apixaban [Eliquis] 5 mg PO DAILY 09/16/17 Atorvastatin Calcium [Lipitor 80 mg Tablet] 40 mg PO QHS 09/16/17 Clopidogrel Bisulfate [Plavix 75 mg Tablet] 75 mg PO DAILY 09/16/17 Fluticasone Propionate [Flonase Nasal [place] 50 Mcg/[place] 16 gm] 1 spray NASL DAILYP PRN 09/16/17 Glipizide [Glucotrol 5 mg Tablet] 5 mg PO BID 09/16/17 Guaifenesin [Mucinex] 400 mg PO QID 09/16/17 Hydrochlorothiazide [Hydrodiuril 25 mg Tablet] 25 mg PO DAILY 09/16/17 Insulin Detemir [Levemir Flextouch] 25 unit SQ QHS 09/16/17 Lisinopril [Prinivil 40 mg Tablet] 40 mg PO DAILY 09/16/17 Metoprolol Tartrate [Lopressor 50 mg Tablet] 50 mg PO Q12 09/16/17 Polyethylene Glycol 3350 [Miralax Powder 17 gm/Packet] 1 packet PO DAILY Terazosin HCl [Hytrin] 2 mg PO QHS 09/16/17 Daptomycin [Cubicin Inj 500 mg Vial] 600 mg IV DAILY #30 vial 09/28/17 Allergies/Adverse Reactions: nystatin [Nystatin] Allergy (Verified 07/21/11 22:09) Review of Systems Review of Systems: As outlined in the HPI, all others negative Physical Exam Vital Signs: Temp Pulse Resp BP Pulse Ox 99.1 F 100 16 119/95 H 93 07/09/18 22:44 07/09/18 19:27 07/09/18 19:27 07/09/18 19:27 07/09/18 19:27 Additional comments: General appearance: Elderly, deconditioned, alert and cooperative, and appears to be in acute distress when try to change positions. Head: Normocephalic Eyes: PEERL, EOMI, vision is grossly intact. Ears: External auditory canal and tympanic membranes clear, hearing grossly intact. Nose: No nasal discharge. Throat: Oral cavity and pharynx normal. No inflammation, swelling, exudate or lesions. Neck: Neck supple, nontender without lymphadenopathy, masses or thyromegaly. Cardiac: Normal S1 and S2. No S3, S4 or murmurs. Rhythm is regular. There is no cyanosis or pallor. Extremities are warm and well perfused. Capillary refill is less than 2 seconds. No carotid bruits. Lungs: Clear to auscultation and percussion without rales, rhonchi, mild expiratory wheezing, diffused diminished breath sounds. Not using accessory muscles. Abdomen: Positive bowel sounds. Soft. Nondistended, nontender. No guarding or rebound. No masses. No hepatosplenomegaly Extremities: No significant deformity or joint abnormality. No edema. Peripheral pulses intact. Spine: Tenderness to palpation on the lumbar spine more in L2, L3 and L4, left paraspinal tenderness, do not appreciate fluctuance , erythema, swelling or secretions. Neurological: Cranial nerves II through XII grossly intact. Strength and sensation symmetric and intact in upper extremities. Decreased lower extremity strength. Skin: Skin pallor, normal texture and turgor with no lesions or eruptions, warm and dry. Psychiatric: The mental examination revealed the patient was oriented to person , place, and time. The patient was able to demonstrate good judgment on recent , without hallucinations, abnormal affect or abnormal behaviors. Results Laboratory Results: 07/09/18 07/09/18 07/09/18 15:55 21:15 21:20 WBC 13.5 H RBC 3.59 L Hgb 11.9 L Hct 35.1 L MCV 98 H MCH 33.3 MCHC 34.0 RDW 14.5 H Plt Count 322 Seg Neutrophils % 77.1 Lymphocytes % 13.2 Monocytes % 9.5 Eosinophils % 0.0 Basophils % 0.2 Absolute Neutrophils 10.4 H Absolute Lymphocytes 1.8 Absolute Monocytes 1.3 Absolute Eosinophils 0.0 Absolute Basophils 0.0 PT INR Sodium Potassium Chloride Carbon Dioxide Anion Gap BUN Creatinine Est GFR ( Amer) Est GFR (Non-Af Amer) Glucose POC Glucose 121 H Lactic Acid Calcium Total Bilirubin Direct Bilirubin AST ALT Alkaline Phosphatase Total Protein Albumin Urine Color YELLOW Urine Appearance CLEAR Urine pH 6.0 Ur Specific [place] 1.017 Urine Protein NEGATIVE Urine Glucose (UA) NEGATIVE Urine Ketones NEGATIVE Urine Blood NEGATIVE Urine Nitrite NEGATIVE Urine Bilirubin NEGATIVE Urine Urobilinogen 2.0 H Ur Leukocyte Esterase NEGATIVE Urine WBC (Auto) 1 Urine RBC (Auto) 2 Squamous Epi Cells Auto <1 Urine Mucus (Auto) RARE Urine Ascorbic Acid NEGATIVE 07/09/18 07/09/18 07/09/18 21:20 21:20 21:20 WBC RBC Hgb Hct MCV MCH MCHC RDW Plt Count Seg Neutrophils % Lymphocytes % Monocytes % Eosinophils % Basophils % Absolute Neutrophils Absolute Lymphocytes Absolute Monocytes Absolute Eosinophils Absolute Basophils PT 18.5 H INR 1.47 Sodium 140.9 Potassium 3.7 Chloride 106 Carbon Dioxide 22 Anion Gap 13 BUN 27 H Creatinine 1.31 H Est GFR ( Amer) > 60 Est GFR (Non-Af Amer) 53 L Glucose 120 H POC Glucose Lactic Acid 1.2 Calcium 9.2 Total Bilirubin 1.3 Direct Bilirubin 0.5 H AST 19 ALT 19 L Alkaline Phosphatase 57 Total Protein 5.8 L Albumin 3.0 L Urine Color Urine Appearance Urine pH Ur Specific [place] Urine Protein Urine Glucose (UA) Urine Ketones Urine Blood Urine Nitrite Urine Bilirubin Urine Urobilinogen Ur Leukocyte Esterase Urine WBC (Auto) Urine RBC (Auto) Squamous Epi Cells Auto Urine Mucus (Auto) Urine Ascorbic Acid Impressions: Chest X-Ray 07/09/18 00:00 IMPRESSION: No acute disease. Assessment & Plan - Diagnosis (1) Fever of unknown origin Is this a current diagnosis for this admission?: Yes Plan: Patient comes complaining of back pain since last Wednesday, patient has history of chronic back pain and is a result he is most of the time wheelchair-bound but tells me that never had a pain ladies. He has history of MRSA bacteremia with a spinal and psoas abscesses for which he was in a critical care condition with a new hung over January this year. Patient stopped taking his antibiotics a month ago as he could not refill his medications, he follows with infectious diseases. I suspect that his abscesses has been getting worse over time. I will place the patient on IV daptomycin and IV Zosyn. Blood culture has been seen in the emergency department, please follow identification and sensitivity. Place an order for a CT with contrast to rule out abscess in his lumbar spine and psoas area. IV and p.o. pain medication and antiemetics as needed. (2) Back pain Is this a current diagnosis for this admission?: Yes Plan: Acute on chronic back pain, he will be n.p.o. on IV pain medications. As above (3) COPD (chronic obstructive pulmonary disease) Qualifiers: COPD type: emphysema Emphysema type: unspecified Qualified Code(s): J43.9 - Emphysema, unspecified Is this a current diagnosis for this admission?: Yes Plan: Patient is complaining of a little bit more shortness of breath than his usual, has mild expiratory wheezing, he probably has a little bit of COPD exacerbation , do not feel that the patient is to be in a status but I will place him on nebulizer treatments as needed and I will resume his home bronchodilators. (4) DM type 2 (diabetes mellitus, type 2) Qualifiers: Diabetes mellitus nursing home insulin use: unspecified intermediate manager insulin use status Diabetes mellitus complication status: with unspecified complications Qualified Code(s): E11.8 - Type 2 diabetes mellitus with unspecified complications Is this a current diagnosis for this admission?: Yes Plan: Accu-Cheks q. before meals and at bedtime, insulin lispro sliding scale and hypoglycemia protocol. Continue with home Levemir, metformin will be on hold. (5) Debility Is this a current diagnosis for this admission?: Yes Plan: Likely secondary to infectious process. Physical therapy when appropriate. (6) DVT prophylaxis Is this a current diagnosis for this admission?: Yes Plan: I will continue the patient on his home Eliquis until we know for sure that the patient will need abscess drainage - Time Time Spent: 50 to 70 Minutes - Inpatient Certification Based on my medical assessment, after consideration of the patient's comorbidities, presenting symptoms, or acuity I expect that the services needed warrant INPATIENT care.: Yes I certify that my determination is in accordance with my understanding of Medicare's requirements for reasonable and necessary INPATIENT services [42 CFR 412.3e].: Yes Medical Necessity: Risk of Complication if Not Cared For in Hospital - Sepsis with septic shock. - Plan Summary Plan Summary: Plan discussed with patient, agree with it.
[2018-07-09] MEDS ORDERED: DEXTROSE 50%-WATER 25 GM/50 ML DISP.SYRIN IV PRN ×2 (23:50)
[2018-07-09] MEDS ORDERED: GLUCAGON,HUMAN RECOMB 1 MG INJ IM PRN (23:50)
[2018-07-09] MEDS ORDERED: INSULIN LISPRO 100 UNIT/ML 3 ML VIAL SUBCUT PRN (23:50)
[2018-07-09] MEDS ORDERED: DEXTROSE 40% GEL 15 GM TUBE PO PRN ×2 (23:50)
[2018-07-09] MEDS: OXYCODONE HCL SR 40 MG TABLET PO SCH (23:53)
[2018-07-10] MEDS ORDERED: PIPERACILLIN SODIUM/TAZOBACTAM 3.375 GM in NORMAL SALINE 100 ML IV SCH ×2
--- NOTE | 2018-07-10 00:58 | RADIOLOGY REPORT (SQ) ---
EXAM DESCRIPTION: CT LUMBAR SPINE WITH IV CONTRAST COMPLETED DATE/TME: 07/09/2018 00:00 CLINICAL HISTORY: 73 years, Male, Lumbar abscess and psoas abscess COMPARISON: Prior MRI lumbar spine 09/20/2017. TECHNIQUE: [id number] Images stored on PACS. All CT scanners at this facility use dose modulation, iterative reconstruction, and/or weight based dosing when appropriate to reduce radiation dose to as low as reasonably achievable (ALARA). [facility]: Dose Right [facility]: CareDose [facility]: Dose Right [facility]: Teradose 4D [facility]: [employer] LIMITATIONS: None. FINDINGS: Evaluation of spinal canal contents limited due to CT technique. However, vertebral body alignment is preserved. There is endplate irregularity at the L4/L5 level with widening of the disc space. There is surrounding inflammatory change in the paraspinal musculature. These findings appear new from the prior MRI and are concerning for osteomyelitis/discitis. Abnormal soft tissue density extends into the right neural foramen. No discrete or defined abscess. Paraspinal phlegmon is present. Right-sided pars defects at this level. Extensive vascular calcifications are noted. 5 lumbar type vertebral bodies. Multilevel degenerative change throughout the lumbar spine, similar to the prior MRI.. IMPRESSION: Findings consistent with osteomyelitis discitis at the L4/L5 level with surrounding inflammatory change and phlegmon in the paraspinal musculature and extending into the right neural foramen. No discrete or defined abscess. Diffuse/multilevel degenerative change, similar to the prior MRI. TECHNICAL DOCUMENTATION: Quality ID # 436: Final reports with documentation of one or more dose reduction techniques (e.g., Automated exposure control, adjustment of the mA and/or kV according to patient size, use of iterative reconstruction technique) copyright 2011 [employer]- All Rights Reserved
[2018-07-10] MEDS: NORMAL SALINE 1000 ML 1,000 ML IV PRN ×2 (02:01→16:15)
[2018-07-10] MEDS ORDERED: PIPERACILLIN/TAZOBACTAM 3.375 GM VIAL IV ONE (03:07)
[2018-07-10] MEDS: PIPERACILLIN SODIUM/TAZOBACTAM 3.375 GM in NORMAL SALINE 100 ML IV SCH ×4 (03:27→20:06)
[2018-07-10 05:14] LABS: ABSOLUTE BASOPHILS # (AUTO) 0.1 10^3/uL (0.0-0.2); ABSOLUTE LYMPHOCYTES (AUTO) 1.9 10^3/uL (0.5-4.7); ABSOLUTE MONOCYTES (AUTO) 1.4 10^3/uL (0.1-1.4); ABSOLUTE NEUT (AUTO) 9.1 10^3/uL (1.7-8.2); BASOPHILS % (AUTO) 0.4 % (0-2); EOSINOPHILS % (AUTO) 0.2 % (0-6); HEMATOCRIT 31.1 % (37.9-51.0); HEMOGLOBIN 10.8 g/dL (13.5-17.0); LYMPHOCYTES % (AUTO) 15.1 % (13-45); MEAN CORPUSCULAR HEMOGLOBIN 33.8 pg (27.0-33.4); MEAN CORPUSCULAR HGB CONC 34.8 g/dL (32.0-36.0); MEAN CORPUSCULAR VOLUME 97 fl (80-97); MONOCYTES % (AUTO) 10.9 % (3-13); PLATELET COUNT 265 10^3/uL (150-450); SEGMENTED NEUTROPHILS % (AUTO) 73.4 % (42-78); TOTAL CELLS COUNTED % (AUTO) 100 %; WHITE BLOOD COUNT 12.5 10^3/uL (4.0-10.5)
[2018-07-10 05:26] LABS: INTERNATIONAL RATION (INR) 1.44; PROTHROMBIN TIME 18.3 SEC (11.4-15.4)
[2018-07-10 05:27] LABS: PARTIAL THROMBOPLASTIN TIME 62.4 SEC (23.5-35.8)
[2018-07-10 05:34] LABS: ALANINE AMINOTRANSFERASE 19 U/L (21-72); ALBUMIN 2.6 g/dL (3.5-5.0); ALKALINE PHOSPHATASE 50 U/L (38-126); ANION GAP 12 (5-19); ASPARTATE AMINO TRANSFERASE 18 U/L (17-59); BILIRUBIN,DIRECT 0.5 mg/dL (0.0-0.4); BLOOD UREA NITROGEN 25 mg/dL (7-20); CALCIUM 8.8 mg/dL (8.4-10.2); CARBON DIOXIDE 22 mmol/L (22-30); CHLORIDE 108 mmol/L (98-107); GLUCOSE 110 mg/dL (75-110); PHOSPHORUS 3.3 mg/dL (2.5-4.5); POTASSIUM 3.9 mmol/L (3.6-5.0); SODIUM 141.9 mmol/L (137-145); TOTAL PROTEIN 5.6 g/dL (6.3-8.2)
[2018-07-10] MEDS: DAPTOMYCIN 500 MG in NORMAL SALINE 50 ML IV SCH (10:21)
[2018-07-10] MEDS: OXYCODONE HCL SR 40 MG TABLET PO SCH (12:23)
--- NOTE | 2018-07-10 17:13 | PDOC PROGRESS REPORT ---
Subjective Progress Note for:: 07/10/18 Subjective:: NELY WILLARD is a 73 year old male with a 6-day history of gradually worsening lower back pain. He describes the pain as an exquisitely severe, intermittent sharp pain in the lower lumbar region (bilateral) which radiates around the right lower flank and into the right groin and down the right thigh and lateral right leg occurring numerous times in per day and lasting for several minutes each time that it occurs. His pain is triggered by movement of the back especially bending and rotating. He admits several similar episodes of pain in the past with previous lumbar and psoas abscesses earlier this year. He additionally admits having a sensation of fever and chills at home for the last day or 2. In the emergency room he was found to have a fever of 101.2 F. His CBC showed a leukocytosis and due to his history of prior deep muscle abscess he was given IV antibiotic therapy and admitted to the hospital. 07/10/2018: Patient states that his pain continues to be fairly severe and not very well controlled with his current medication. He has been able to eat and drink, and has no problems with his eliminations thus far. He continues to feel somewhat dyspneic but this is not unusual for him due to his severe COPD. He denies chest pain and admits only to his usual chronic cough. Reason For Visit: POSSIBLE RECURRENCE OF HIS SPINE AND PSOAS Physical Exam Vital Signs: Temp Pulse Resp BP Pulse Ox 98.7 F 83 21 H 140/63 H 94 07/10/18 01:43 07/10/18 07:00 07/10/18 01:43 07/10/18 01:43 07/10/18 01:43 Intake & Output 07/08/18 07/09/18 07/10/18 23:59 23:59 23:59 Intake Total 100 Balance 100 Weight 92.3 kg General appearance: PRESENT: cooperative, mild distress - Secondary to back pain , well-developed, well-nourished Head exam: PRESENT: atraumatic, normocephalic Eye exam: PRESENT: conjunctiva pink, EOMI Ear exam: PRESENT: normal external ear exam. ABSENT: drainage Mouth exam: PRESENT: neck supple, other - Oral mucosa is moist and intact, dentition is in fair to poor repair. Neck exam: ABSENT: JVD, tracheal deviation Respiratory exam: PRESENT: decreased breath sounds - Moderately decreased breath sounds are noted in all welsh., prolonged expiratory phas - A mildly to moderately prolonged expiratory phase is noted throughout all welsh., symmetrical, unlabored, wheezes - Moderate expiratory wheezes are noted in all welsh. ABSENT: accessory muscle use, retraction Cardiovascular exam: PRESENT: RRR. ABSENT: clicks, gallop, rubs Vascular exam: PRESENT: normal capillary refill. ABSENT: pallor GI/Abdominal exam: PRESENT: normal bowel sounds, soft Rectal exam: PRESENT: deferred Extremities exam: ABSENT: joint swelling, pedal edema Musculoskeletal exam: PRESENT: tenderness - Pain to palpation in the area of the right lumbar as well as the right flank on limited exam.. ABSENT: deformity , dislocation Neurological exam: PRESENT: alert, oriented to person, oriented to place, oriented to time, oriented to situation, CN II-XII grossly intact Psychiatric exam: PRESENT: appropriate affect, normal mood Skin exam: ABSENT: jaundice, rash, urticaria Results Laboratory Results: 07/10/18 04:13 07/10/18 04:13 07/10/18 07/10/18 04:13 04:13 WBC 12.5 H RBC 3.20 L Hgb 10.8 L Hct 31.1 L MCV 97 MCH 33.8 H MCHC 34.8 RDW 14.0 Plt Count 265 Seg Neutrophils % 73.4 Lymphocytes % 15.1 Monocytes % 10.9 Eosinophils % 0.2 Basophils % 0.4 Absolute Neutrophils 9.1 H Absolute Lymphocytes 1.9 Absolute Monocytes 1.4 Absolute Eosinophils 0.0 Absolute Basophils 0.1 Sodium 141.9 Potassium 3.9 Chloride 108 H Carbon Dioxide 22 Anion Gap 12 BUN 25 H Creatinine 1.25 Est GFR ( Amer) > 60 Est GFR (Non-Af Amer) 56 L Glucose 110 Calcium 8.8 Phosphorus 3.3 Magnesium 2.0 Total Bilirubin 1.0 AST 18 ALT 19 L Alkaline Phosphatase 50 Total Protein 5.6 L Albumin 2.6 L Impressions: Chest X-Ray 07/09/18 00:00 IMPRESSION: No acute disease. Lumbar Spine CT 07/09/18 00:00 IMPRESSION: Findings consistent with osteomyelitis discitis at the L4/L5 level with surrounding inflammatory change and phlegmon in the paraspinal musculature and extending into the right neural foramen. No discrete or defined abscess. Diffuse/multilevel degenerative change, similar to the prior MRI. TECHNICAL DOCUMENTATION: Quality ID # 436: Final reports with documentation of one or more dose reduction techniques (e.g., Automated exposure control, adjustment of the mA and/or kV according to patient size, use of iterative reconstruction technique) copyright 2011 [employer]- All Rights Reserved Assessment & Plan - Diagnosis (1) Back pain Qualifiers: Back pain location: low back pain Chronicity: unspecified Back pain laterality: right Sciatica presence: without sciatica Qualified Code(s): M54.5 - Low back pain Is this a current diagnosis for this admission?: Yes Plan: Patient has a history of deep muscle abscesses in the back. This will need to be investigated further with direction from surgery or interventional radiology. In the meantime patient be treated with IV antibiotics and analgesics using a sliding scale with IV morphine 2-4 mg every 2 hours as needed to control his discomfort. Antipyretics will be used for his fever as needed. (2) COPD (chronic obstructive pulmonary disease) Qualifiers: COPD type: emphysema Emphysema type: unspecified Qualified Code(s): J43.9 - Emphysema, unspecified Is this a current diagnosis for this admission?: Yes Plan: Aggressive pulmonary toilet utilizing Xopenex, Atrovent and Pulmicort will be instituted. Further therapy decisions will be made based upon the response to these measures. (3) Coronary artery disease Qualifiers: Coronary Disease-Associated Artery/Lesion type: [place] artery [place] vs. transplanted heart: [place] heart Associated angina: angina presence unspecified Qualified Code(s): I25.10 - Atherosclerotic heart disease of [place] coronary artery without angina pectoris Is this a current diagnosis for this admission?: Yes Plan: Patient will be continued on his usual cardiac medications throughout his hospital course and at the time of discharge. Changes will be made only if necessity arises. (4) DM type 2 (diabetes mellitus, type 2) Qualifiers: Diabetes mellitus retirement insulin use: unspecified buttermaker helper insulin use status Diabetes mellitus complication status: with unspecified complications Qualified Code(s): E11.8 - Type 2 diabetes mellitus with unspecified complications Is this a current diagnosis for this admission?: Yes Plan: Patient will be continued on his usual diabetic regimen. Sliding scale insulin may also be used to cover hyperglycemia that may be introduced due to medications or other factors. - Time Time Spent with patient: 25-34 minutes Medications reviewed and adjusted accordingly: Yes
[2018-07-10] MEDS ORDERED: MORPHINE SULFATE 10 MG/ML INJ IV PRN ×3 (17:16)
[2018-07-10] MEDS ORDERED: ALBUTEROL SULFATE 0.083% NEB 2.5 MG/3 ML AMPUL NEB PRN (17:18)
[2018-07-10] MEDS ORDERED: LEVALBUTEROL HCL NEB 1.25 MG/3 ML AMPUL NEB ONE (17:45)
[2018-07-10] MEDS ORDERED: IPRATROPIUM BROMIDE 0.02% NEB 0.5 MG/2.5 ML AMPUL NEB ONE (17:45)
[2018-07-10 18:11] LABS: FREE T3 1.98 pg/mL (2.77-5.27); FREE T4 (FREE THYROXINE) 1.35 ng/dL (0.78-2.19)
[2018-07-10 19:07] LABS: A TYPE INFLUENZA AG NEGATIVE (NEGATIVE); B INFLUENZA AG NEGATIVE (NEGATIVE)
[2018-07-10] MEDS: BUDESONIDE NEB 0.5 MG/2 ML AMPUL NEB SCH (19:58)
[2018-07-10] MEDS: MORPHINE SULFATE SR 30 MG TABLET PO SCH (22:27)
[2018-07-10] MEDS: IPRATROPIUM BROMIDE 0.02% NEB 0.5 MG/2.5 ML AMPUL NEB SCH (23:57)
[2018-07-10] MEDS: LEVALBUTEROL HCL NEB 1.25 MG/3 ML AMPUL NEB SCH (23:57)
[2018-07-11] MEDS: PIPERACILLIN SODIUM/TAZOBACTAM 3.375 GM in NORMAL SALINE 100 ML IV SCH ×2 (04:43→09:39)
[2018-07-11 07:01] LABS: ABSOLUTE EOSINOPHILS # (AUTO) 0.1 10^3/uL (0.0-0.6); ABSOLUTE LYMPHOCYTES (AUTO) 1.6 10^3/uL (0.5-4.7); ABSOLUTE MONOCYTES (AUTO) 0.9 10^3/uL (0.1-1.4); ABSOLUTE NEUT (AUTO) 6.8 10^3/uL (1.7-8.2); BASOPHILS % (AUTO) 0.5 % (0-2); HEMATOCRIT 30.9 % (37.9-51.0); HEMOGLOBIN 10.5 g/dL (13.5-17.0); LYMPHOCYTES % (AUTO) 16.6 % (13-45); MEAN CORPUSCULAR HEMOGLOBIN 33.2 pg (27.0-33.4); MEAN CORPUSCULAR VOLUME 98 fl (80-97); MONOCYTES % (AUTO) 9.7 % (3-13); PLATELET COUNT 283 10^3/uL (150-450); RED BLOOD COUNT 3.16 10^6/uL (4.35-5.55); RED CELL DISTRIBUTION WIDTH 14.1 % (11.5-14.0); SEGMENTED NEUTROPHILS % (AUTO) 72.2 % (42-78); TOTAL CELLS COUNTED % (AUTO) 100 %; WHITE BLOOD COUNT 9.4 10^3/uL (4.0-10.5)
[2018-07-11 07:30] LABS: ANION GAP 10 (5-19); BLOOD UREA NITROGEN 21 mg/dL (7-20); CALCIUM 8.7 mg/dL (8.4-10.2); CARBON DIOXIDE 22 mmol/L (22-30); CHLORIDE 108 mmol/L (98-107); CHOLESTEROL 81.96 mg/dL (0-200); GLUCOSE 92 mg/dL (75-110); POTASSIUM 3.9 mmol/L (3.6-5.0); SODIUM 140.1 mmol/L (137-145); TRIGLYCERIDES 79 mg/dL (<150)
[2018-07-11 07:41] LABS: DIRECT LDL 62 mg/dL (<100)
[2018-07-11] MEDS: LEVALBUTEROL HCL NEB 1.25 MG/3 ML AMPUL NEB SCH ×2 (08:16→16:18)
[2018-07-11] MEDS: BUDESONIDE NEB 0.5 MG/2 ML AMPUL NEB SCH ×2 (08:16→20:33)
[2018-07-11] MEDS: IPRATROPIUM BROMIDE 0.02% NEB 0.5 MG/2.5 ML AMPUL NEB SCH ×2 (08:16→16:18)
[2018-07-11] MEDS: MORPHINE SULFATE SR 30 MG TABLET PO SCH ×2 (09:39→22:59)
[2018-07-11] MEDS: DAPTOMYCIN 500 MG in NORMAL SALINE 50 ML IV SCH (10:11)
[2018-07-11] MEDS ORDERED: MORPHINE SULFATE 10 MG/ML INJ IV PRN ×3 (13:34)
[2018-07-11] MEDS ORDERED: PROMETHAZINE HCL INJ 25 MG/1 ML VIAL IV PRN (14:30)
[2018-07-11] MEDS: DOXYCYCLINE HYCLATE 100 MG TABLET PO SCH (16:15)
[2018-07-11] MEDS: NORMAL SALINE 1000 ML 1,000 ML IV PRN (16:15)
--- NOTE | 2018-07-11 16:38 | PDOC PROGRESS REPORT ---
Subjective Progress Note for:: 07/11/18 Subjective:: NELY WILLARD is a 73 year old male with a 6-day history of gradually worsening lower back pain. He describes the pain as an exquisitely severe, intermittent sharp pain in the lower lumbar region (bilateral) which radiates around the right lower flank and into the right groin and down the right thigh and lateral right leg occurring numerous times in per day and lasting for several minutes each time that it occurs. His pain is triggered by movement of the back especially bending and rotating. He admits several similar episodes of pain in the past with previous lumbar and psoas abscesses earlier this year. He additionally admits having a sensation of fever and chills at home for the last day or 2. In the emergency room he was found to have a fever of 101.2 F. His CBC showed a leukocytosis and due to his history of prior deep muscle abscess he was given IV antibiotic therapy and admitted to the hospital. 07/10/2018: Patient states that his pain continues to be fairly severe and not very well controlled with his current medication. He has been able to eat and drink, and has no problems with his eliminations thus far. He continues to feel somewhat dyspneic but this is not unusual for him due to his severe COPD. He denies chest pain and admits only to his usual chronic cough. 07/11/2018: Patient states that his pain has gotten somewhat better with the change of medication but he is still having a moderately severe amount of pain, though he is grateful that he is was able to sleep on his side last night simply is not been able to do in a long time. His dyspnea is dramatically improved with the pulmonary toilet that we have provided. He has been able to eat and drink some fluids and has not had any difficulty with elimination thus far. We have discussed increasing his analgesic medication and this will be done by increasing his IV morphine to 3-5 mg IV every 2 hours as needed, and will increase his oral MS Contin to 60 mg p.o. twice daily. Reason For Visit: POSSIBLE RECURRENCE OF HIS SPINE AND PSOAS Physical Exam Vital Signs: Temp Pulse Resp BP Pulse Ox 99.3 F 96 14 110/37 L 93 07/11/18 00:00 07/11/18 16:19 07/11/18 16:19 07/11/18 00:00 07/11/18 16:19 Intake & Output 07/09/18 07/10/18 07/11/18 23:59 23:59 23:59 Intake Total 2423 1930 Output Total 560 Balance 2423 1370 Weight 92.3 kg 92.5 kg General appearance: PRESENT: no acute distress, cooperative Head exam: PRESENT: atraumatic, normocephalic Eye exam: PRESENT: conjunctiva pink, EOMI Ear exam: PRESENT: normal external ear exam. ABSENT: drainage Mouth exam: PRESENT: neck supple, other - Oral mucosa is moist and intact Neck exam: ABSENT: JVD, tracheal deviation Respiratory exam: PRESENT: decreased breath sounds - Mild to moderately decreased breath sounds throughout all welsh consistent with moderate to severe COPD, symmetrical, unlabored. ABSENT: prolonged expiratory phas, wheezes Cardiovascular exam: PRESENT: RRR. ABSENT: clicks, gallop, rubs Vascular exam: PRESENT: normal capillary refill. ABSENT: pallor GI/Abdominal exam: PRESENT: normal bowel sounds, soft Rectal exam: PRESENT: deferred Extremities exam: ABSENT: joint swelling, pedal edema Musculoskeletal exam: PRESENT: other - There is significant tenderness in the right flank area and around into the right groin on palpation. There is also significant pain to palpation in the bilateral lumbar paraspinous regions.. ABSENT: deformity, dislocation Neurological exam: PRESENT: alert, oriented to person, oriented to place, oriented to time, oriented to situation, CN II-XII grossly intact Psychiatric exam: PRESENT: appropriate affect, normal mood Skin exam: PRESENT: dry, intact, warm Results Laboratory Results: 07/11/18 06:37 07/11/18 06:37 07/10/18 07/11/18 07/11/18 04:13 06:37 06:37 WBC 9.4 RBC 3.16 L Hgb 10.5 L Hct 30.9 L MCV 98 H MCH 33.2 MCHC 34.0 RDW 14.1 H Plt Count 283 Seg Neutrophils % 72.2 Lymphocytes % 16.6 Monocytes % 9.7 Eosinophils % 1.0 Basophils % 0.5 Absolute Neutrophils 6.8 Absolute Lymphocytes 1.6 Absolute Monocytes 0.9 Absolute Eosinophils 0.1 Absolute Basophils 0.0 Sodium 140.1 Potassium 3.9 Chloride 108 H Carbon Dioxide 22 Anion Gap 10 BUN 21 H Creatinine 1.23 Est GFR ( Amer) > 60 Est GFR (Non-Af Amer) 58 L Glucose 92 Calcium 8.7 Magnesium 1.9 Triglycerides 79 Cholesterol 81.96 LDL Cholesterol Direct 62 VLDL Cholesterol 16.0 HDL Cholesterol 18 L TSH Free T4 1.35 Free T3 pg/mL 1.98 L 07/11/18 06:37 WBC RBC Hgb Hct MCV MCH MCHC RDW Plt Count Seg Neutrophils % Lymphocytes % Monocytes % Eosinophils % Basophils % Absolute Neutrophils Absolute Lymphocytes Absolute Monocytes Absolute Eosinophils Absolute Basophils Sodium Potassium Chloride Carbon Dioxide Anion Gap BUN Creatinine Est GFR ( Amer) Est GFR (Non-Af Amer) Glucose Calcium Magnesium Triglycerides Cholesterol LDL Cholesterol Direct VLDL Cholesterol HDL Cholesterol TSH 1.67 Free T4 Free T3 pg/mL Impressions: Chest X-Ray 07/09/18 00:00 IMPRESSION: No acute disease. Lumbar Spine CT 07/09/18 00:00 IMPRESSION: Findings consistent with osteomyelitis discitis at the L4/L5 level with surrounding inflammatory change and phlegmon in the paraspinal musculature and extending into the right neural foramen. No discrete or defined abscess. Diffuse/multilevel degenerative change, similar to the prior MRI. TECHNICAL DOCUMENTATION: Quality ID # 436: Final reports with documentation of one or more dose reduction techniques (e.g., Automated exposure control, adjustment of the mA and/or kV according to patient size, use of iterative reconstruction technique) copyright 2011 [employer]- All Rights Reserved Assessment & Plan - Diagnosis (1) Back pain Qualifiers: Back pain location: low back pain Chronicity: unspecified Back pain laterality: right Sciatica presence: without sciatica Qualified Code(s): M54.5 - Low back pain Is this a current diagnosis for this admission?: Yes Plan: Patient has a history of deep muscle abscesses in the back as well as a possible new osteomyelitis of the lumbar vertebrae/discs. This will need to be investigated further with direction from surgery or interventional radiology. In the meantime patient be treated with IV antibiotics and analgesics using a sliding scale with IV morphine 2-4 mg every 2 hours as needed to control his discomfort. Antipyretics will be used for his fever as needed. 07/11/2018: Patient is converted back to the IV and oral antibiotic regiment was prescribed by his infectious disease specialist from [place]. This will utilize Cubicin 500 mg IV daily and doxycycline 100 mg p.o. twice daily. I have not yet been able to contact the patient's infectious disease specialist to get an update or any redirection based upon his new CT findings. Hopefully this will be accomplished later this week. We have discussed increasing his analgesic medication and this will be done by increasing his IV morphine to 3-5 mg IV every 2 hours as needed, and will increase his oral MS Contin to 60 mg p.o. twice daily. (2) COPD (chronic obstructive pulmonary disease) Qualifiers: COPD type: emphysema Emphysema type: unspecified Qualified Code(s): J43.9 - Emphysema, unspecified Is this a current diagnosis for this admission?: Yes Plan: Aggressive pulmonary toilet utilizing Xopenex, Atrovent and Pulmicort will be instituted. Further therapy decisions will be made based upon the response to these measures. (3) Coronary artery disease Qualifiers: Coronary Disease-Associated Artery/Lesion type: [place] artery [place] vs. transplanted heart: ramona heart Associated angina: angina presence unspecified Qualified Code(s): I25.10 - Atherosclerotic heart disease of ramona coronary artery without angina pectoris Is this a current diagnosis for this admission?: Yes Plan: Patient will be continued on his usual cardiac medications throughout his hospital course and at the time of discharge. Changes will be made only if necessity arises. 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 Sliding scale insulin may also be used to cover hyperglycemia that may be introduced due to medications or other factors. - Time Time Spent with patient: 15-24 minutes Medications reviewed and adjusted accordingly: Yes Anticipated discharge: Home with Homehealth
[2018-07-12] MEDS: IPRATROPIUM BROMIDE 0.02% NEB 0.5 MG/2.5 ML AMPUL NEB SCH ×3 (00:33→16:37)
[2018-07-12] MEDS: LEVALBUTEROL HCL NEB 1.25 MG/3 ML AMPUL NEB SCH ×3 (00:33→16:37)
[2018-07-12] MEDS: NORMAL SALINE 1000 ML 1,000 ML IV PRN ×2 (02:16→12:31)
[2018-07-12] MEDS: ACETAMINOPHEN 325 MG TABLET PO PRN ×3 (04:58→23:51)
[2018-07-12 05:38] LABS: ABSOLUTE EOSINOPHILS # (AUTO) 0.4 10^3/uL (0.0-0.6); ABSOLUTE LYMPHOCYTES (AUTO) 1.1 10^3/uL (0.5-4.7); ABSOLUTE MONOCYTES (AUTO) 0.9 10^3/uL (0.1-1.4); ABSOLUTE NEUT (AUTO) 7.8 10^3/uL (1.7-8.2); BASOPHILS % (AUTO) 0.3 % (0-2); EOSINOPHILS % (AUTO) 4.1 % (0-6); HEMATOCRIT 30.3 % (37.9-51.0); HEMOGLOBIN 10.6 g/dL (13.5-17.0); MEAN CORPUSCULAR HEMOGLOBIN 33.9 pg (27.0-33.4); MEAN CORPUSCULAR HGB CONC 34.9 g/dL (32.0-36.0); MEAN CORPUSCULAR VOLUME 97 fl (80-97); MONOCYTES % (AUTO) 8.6 % (3-13); PLATELET COUNT 304 10^3/uL (150-450); RED BLOOD COUNT 3.11 10^6/uL (4.35-5.55); RED CELL DISTRIBUTION WIDTH 13.7 % (11.5-14.0); TOTAL CELLS COUNTED % (AUTO) 100 %; WHITE BLOOD COUNT 10.3 10^3/uL (4.0-10.5)
[2018-07-12 05:54] LABS: ANION GAP 10 (5-19); BLOOD UREA NITROGEN 17 mg/dL (7-20); CALCIUM 8.5 mg/dL (8.4-10.2); CARBON DIOXIDE 21 mmol/L (22-30); CHLORIDE 110 mmol/L (98-107); GLUCOSE 116 mg/dL (75-110); POTASSIUM 3.3 mmol/L (3.6-5.0); SODIUM 140.8 mmol/L (137-145)
[2018-07-12] MEDS: BUDESONIDE NEB 0.5 MG/2 ML AMPUL NEB SCH ×2 (08:07→20:46)
[2018-07-12] MEDS: MORPHINE SULFATE SR 30 MG TABLET PO SCH ×2 (09:04→23:11)
[2018-07-12] MEDS: DOXYCYCLINE HYCLATE 100 MG TABLET PO SCH ×2 (09:04→16:00)
[2018-07-12] MEDS: DAPTOMYCIN 500 MG in NORMAL SALINE 50 ML IV SCH (09:17)
--- NOTE | 2018-07-12 17:09 | PDOC PROGRESS REPORT ---
Subjective Progress Note for:: 07/12/18 Subjective:: Mr. Nelson is a 73 yr old male with a PMH of lumbar vertebral MRSA osteomyelitis , MRSA bacteremia, chronic back pain, CAD, DM and COPD who was admitted for worsening back pain. CT of the lumbar spine with IV contrast showed possible L4/ L5 osteomeyelitis with disc space widening and surrounding inflammatory change in the paraspinal musculature. No acute event overnight. This morning, patient is not in acute distress but says he continues to have back pain. He denies any leg numbness or weakness. No headaches, dizziness or neck stiffness. No fever or chills. Reason For Visit: POSSIBLE RECURRENCE OF HIS SPINE AND PSOAS Physical Exam Vital Signs: Temp Pulse Resp BP Pulse Ox 98.5 F 85 16 142/53 H 94 07/12/18 15:29 07/12/18 15:29 07/12/18 15:29 07/12/18 15:29 07/12/18 15:29 Intake & Output 07/11/18 07/12/18 07/13/18 06:59 06:59 06:59 Intake Total 3103 2843 1050 Output Total 560 1170 Balance 2543 1673 1050 Weight 203 lb 14.841 oz 212 lb 1.355 oz General appearance: PRESENT: no acute distress, well-developed, well-nourished Head exam: PRESENT: atraumatic, normocephalic Eye exam: PRESENT: conjunctiva pink, EOMI, PERRLA. ABSENT: scleral icterus Ear exam: PRESENT: normal external ear exam Mouth exam: PRESENT: moist, tongue midline Neck exam: ABSENT: carotid bruit, JVD, lymphadenopathy, thyromegaly Respiratory exam: PRESENT: clear to auscultation kimmie. ABSENT: rales, rhonchi, wheezes Cardiovascular exam: PRESENT: RRR. ABSENT: diastolic murmur, rubs, systolic murmur Pulses: PRESENT: normal dorsalis pedis pul GI/Abdominal exam: PRESENT: normal bowel sounds, soft. ABSENT: distended, guarding, mass, organolmegaly, rebound, tenderness Rectal exam: PRESENT: deferred Neurological exam: PRESENT: alert, awake, oriented to person, oriented to place , oriented to time, oriented to situation, CN II-XII grossly intact. ABSENT: motor sensory deficit Results Laboratory Results: 07/12/18 05:19 07/12/18 05:19 07/12/18 07/12/18 05:19 05:19 WBC 10.3 RBC 3.11 L Hgb 10.6 L Hct 30.3 L MCV 97 MCH 33.9 H MCHC 34.9 RDW 13.7 Plt Count 304 Seg Neutrophils % 76.0 Lymphocytes % 11.0 L Monocytes % 8.6 Eosinophils % 4.1 Basophils % 0.3 Absolute Neutrophils 7.8 Absolute Lymphocytes 1.1 Absolute Monocytes 0.9 Absolute Eosinophils 0.4 Absolute Basophils 0.0 Sodium 140.8 Potassium 3.3 L Chloride 110 H Carbon Dioxide 21 L Anion Gap 10 BUN 17 Creatinine 0.99 Est GFR ( Amer) > 60 Est GFR (Non-Af Amer) > 60 Glucose 116 H Calcium 8.5 Magnesium 2.0 Impressions: Chest X-Ray 07/09/18 00:00 IMPRESSION: No acute disease. Lumbar Spine CT 07/09/18 00:00 IMPRESSION: Findings consistent with osteomyelitis discitis at the L4/L5 level with surrounding inflammatory change and phlegmon in the paraspinal musculature and extending into the right neural foramen. No discrete or defined abscess. Diffuse/multilevel degenerative change, similar to the prior MRI. TECHNICAL DOCUMENTATION: Quality ID # [id number]: Final reports with documentation of one or more dose reduction techniques (e.g., Automated exposure control, adjustment of the mA and/or kV according to patient size, use of iterative reconstruction technique) copyright 2011 [employer]- All Rights Reserved Assessment & Plan - Diagnosis (1) Osteomyelitis Is this a current diagnosis for this admission?: Yes Plan: Continue daptomycin and doxycyline. Will consult ID and surgery for further recommendations. - Time Time Spent with patient: 25-34 minutes
--- NOTE | 2018-07-12 18:15 | Progress Note ---
Provider Note Provider Note: ID Telephone Consultation Note Asked to review patient's chart by Dr Izaguirre. Pt is not seen or examined. Reviewed notes in [facility], vitals, labs, provider reports and imaging reports. Mr. Nelson is a 73 year old man with PMH including CAD, DM and COPD who presented to [facility] ED on 07/09/18 with worsened low back pain. He had complicated MRSA bacteremia in Sep 2017 (no known source, TTE and TERENCE negative, MRI cervical/thoracic/lumbar spine negative for infectious spondylitis or abscess) and was treated with 4 weeks of IV daptomycin. Per notes , pt was admitted in January 2018 to [facility] with lumbar paraspinal or psoas abscess. Per H&P documentation, pt reported about 6 days of worsening back pain prior to presentation on 07/09/18 with 2 days of subjective fever and chills at home. He reported he was on daptomycin and doxycycline, but "he stopped taking his medications a month ago as he did not refill them." Pt on presentation to the ED had fever 101.2 F, HR 90-100, no murmur noted on exam, diffusely diminished breath sounds with some mild expiratory wheezing, L paraspinal tenderness and tenderness to palpation over the lumbar spine without obvious erythema or fluctuance, and decreased lower extremity strength. Labs included WBC on presentation was 13.5. SCr 1.3 (baseline ~0.9). Rapid influenza test was negative. UDS was negative. Pt had no urinary complaints, and U/A had no evidence of pyuria, hematuria or proteinuria. BCx from 07/09/18 are negative x 48h at this point. Imaging included single view CXR that showed no acute cardiopulmonary disease, and CT lumbar spine with IV contrast that was read as showing endplate irregularity at L4/L5 level with disc space widening and surrounding inflammatory change in the paraspinal musculature; paraspinal phlegmon was present but no discrete/defined abscess. Based on available information, daptomycin and doxycycline 100 mg BID had been started on 07/10/18. Pt has not had recurrent fever, WBC most recently is 10.3, and pain improved with changes to home opioid regimen. 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 for lumbar vertebral osteomyelitis, the onset of which was reportedly in January, but which had been complicated with paraspinal or psoas abscesses. Records regarding his treatment course are not available in the [facility]. The combination of doxycycline and IV daptomycin reported in the H&P is a bit unusual. If the patient did not come to hospital with a PICC line, tunneled CVL or port in place through which he could have received daily IV daptomycin, it casts doubt on whether pt was actually supposed to be receiving both antibiotics or if he was only supposed to be on doxycycline. It is also not clear to me whether pt completed a planned course of treatment with doxycycline or if he failed to fill a prescription for doxycycline that he needed to take. - Whether the current complaint of fever and worsened back pain is due to an unrelated process (e.g. back spasm and viral infection) or is due to a relapse or worsening of his prior MRSA infection is unclear and difficult to interpret without radiology assistance in comparing recent images and more knowledge of his treatment course and prior clinical manifestations and inflammatory markers. Recommendations - Contact [facility] to discuss whether he should be transferred as he may need of inpatient interventional radiology, Neurosurgery or Infectious Diseases specialist evaluation and whether there is any direction that can be offered by a provider who is aware of the details of his previous imaging, recommended treatment and clinical course. - While here, check a CPK if not done already, particularly considering that he is on both daptomycin and a statin. - Consider getting ESR and CRP to help as an adjunct for clinical assessment, in comparison to prior CRP and ESR that might be available in the [facility] system. Nas Croft MD [facility] Infectious Diseases pager [phone]
[2018-07-13] MEDS: LEVALBUTEROL HCL NEB 1.25 MG/3 ML AMPUL NEB SCH ×2 (00:20→09:45)
[2018-07-13] MEDS: IPRATROPIUM BROMIDE 0.02% NEB 0.5 MG/2.5 ML AMPUL NEB SCH ×2 (00:20→09:45)
[2018-07-13 06:16] LABS: ABSOLUTE BASOPHILS # (AUTO) 0.1 10^3/uL (0.0-0.2); ABSOLUTE EOSINOPHILS # (AUTO) 0.7 10^3/uL (0.0-0.6); ABSOLUTE MONOCYTES (AUTO) 0.9 10^3/uL (0.1-1.4); ABSOLUTE NEUT (AUTO) 9.3 10^3/uL (1.7-8.2); BASOPHILS % (AUTO) 0.5 % (0-2); EOSINOPHILS % (AUTO) 6.2 % (0-6); HEMATOCRIT 29.3 % (37.9-51.0); LYMPHOCYTES % (AUTO) 8.7 % (13-45); MEAN CORPUSCULAR HEMOGLOBIN 33.3 pg (27.0-33.4); MEAN CORPUSCULAR VOLUME 98 fl (80-97); MONOCYTES % (AUTO) 7.7 % (3-13); PLATELET COUNT 336 10^3/uL (150-450); RED CELL DISTRIBUTION WIDTH 13.9 % (11.5-14.0); SEGMENTED NEUTROPHILS % (AUTO) 76.9 % (42-78); TOTAL CELLS COUNTED % (AUTO) 100 %; WHITE BLOOD COUNT 12.1 10^3/uL (4.0-10.5)
[2018-07-13 06:39] LABS: ANION GAP 11 (5-19); BLOOD UREA NITROGEN 18 mg/dL (7-20); CARBON DIOXIDE 22 mmol/L (22-30); CHLORIDE 112 mmol/L (98-107); GLUCOSE 103 mg/dL (75-110); POTASSIUM 3.4 mmol/L (3.6-5.0); SODIUM 144.5 mmol/L (137-145)
[2018-07-13] MEDS: DOXYCYCLINE HYCLATE 100 MG TABLET PO SCH (08:51)
[2018-07-13] MEDS: BUDESONIDE NEB 0.5 MG/2 ML AMPUL NEB SCH (09:45)
--- NOTE | 2018-07-13 10:12 | PDOC TRANSFER SUMMARY ---
General Admission Date/PCP: 07/09/18 23:01 JOSE NETTLES MD - Transfer Diagnosis (1) Osteomyelitis Is this a current diagnosis for this admission?: Yes (2) Sepsis Is this a current diagnosis for this admission?: Yes - Transfer Medications Home Medications: Apixaban [Eliquis] 5 mg PO DAILY 09/16/17 Atorvastatin Calcium [Lipitor 80 mg Tablet] 40 mg PO QHS 09/16/17 Clopidogrel Bisulfate [Plavix 75 mg Tablet] 75 mg PO DAILY 09/16/17 Fluticasone Propionate [Flonase Nasal Apex 50 Mcg/Apex 16 gm] 1 spray NASL DAILYP PRN 09/16/17 Glipizide [Glucotrol 5 mg Tablet] 5 mg PO BID 09/16/17 Hydrochlorothiazide [Hydrodiuril 25 mg Tablet] 25 mg PO DAILY 09/16/17 Lisinopril [Prinivil 40 mg Tablet] 40 mg PO DAILY 09/16/17 Metoprolol Tartrate [Lopressor 50 mg Tablet] 100 mg PO Q12 09/16/17 Terazosin HCl [Hytrin] 2 mg PO QHS 09/16/17 Albuterol Sulfate [Ventolin Hfa 8 gm Mdi (1 Mdi/ER Disp)] 2 puff IN Q4HP PRN 09/26 Budesonide/Formoterol Fumarate [Symbicort HFA 160-4.5 mcg Inhaler 6 gm] 2 puff IN BID 07/10/18 Fenofibrate 145 145 mg PO DAILY 07/10/18 Oxycodone HCl [Oxycodone HCl 10 MG Tablet] 10 mg PO Q4HP PRN 07/10/18 Potassium Chloride [Klor-Con M20] 20 meq PO BID 07/10/18 Tamsulosin HCl [Flomax] 0.4 mg PO DAILY 07/10/18 Tiotropium Roosevelt [Spiriva Respimat] 2 puff IN DAILY 07/10/18 Transfer Medications: Current Medications Acetaminophen (Tylenol 325 Mg Tablet) 650 mg PO Q4HP PRN PRN Reason: FOR PAIN OR TEMP Stop: 08/08/18 22:57 Last Admin: 07/12/18 23:51 Dose: 650 mg Al Hydrox/Mg Hydrox/Simethicone (Maalox Plus Susp 30 Udcup) 15 ml PO Q6HP PRN PRN Reason: HEARTBURN Stop: 08/08/18 22:57 Albuterol (Ventolin 0.083% Neb 2.5 Mg/3 Ml Ampul) 2.5 mg NEB RTQ1HP PRN PRN Reason: SHORTNESS OF BREATH Stop: 08/09/18 17:17 Albuterol/Ipratropium (Duoneb 3 Ml Ampul) 3 ml NEB RTQ3HP PRN PRN Reason: SHORTNESS OF BREATH Stop: 08/08/18 22:57 Last Admin: 07/10/18 14:36 Dose: 3 ml Budesonide (Pulmicort Neb 0.5 Mg/2 Ml Ampul) 0.5 mg NEB RTQ12 JUAN A Stop: 08/09/18 19:59 Last Admin: 07/13/18 09:45 Dose: 0.5 mg Dextrose (Dextrose Inj 50% Syringe (25 Gm/50 Ml)) 12.5 gm IV PRN PRN; Protocol PRN Reason: FOR BG 50-69 IN ALERT PATIENT Stop: 08/08/18 23:49 Dextrose (Dextrose Inj 50% Syringe (25 Gm/50 Ml)) 25 gm IV PRN PRN; Protocol PRN Reason: PER PROTOCOL Stop: 08/08/18 23:49 Doxycycline Hyclate (Vibramycin 100 Mg Tablet) 100 mg PO BIDBS JUAN A Stop: 07/18/18 16:59 Last Admin: 07/13/18 08:51 Dose: 100 mg Glucagon (Glucagen Inj 1 Mg Vial) 1 mg IM PRN PRN; Protocol PRN Reason: Evaluate for BG < 70 Stop: 08/08/18 23:49 Glucose (Glutose 40% Gel 15 Gm Tube) 15 gm PO PRN PRN; Protocol PRN Reason: FOR BG 50-69 IN ALERT PATIENT Stop: 08/08/18 23:49 Glucose (Glutose 40% Gel 15 Gm Tube) 30 gm PO PRN PRN; Protocol PRN Reason: FOR BG < 50 IN ALERT PATIENT Stop: 08/08/18 23:49 Daptomycin 500 mg/ Sodium (Chloride) 50 mls @ 100 mls/hr IV DAILY JUAN A Stop: 07/17/18 09:59 Last Infusion: 07/12/18 10:05 Dose: Infused Sodium Chloride (Nacl 0.9% 1000 Ml Iv Soln) 1,000 mls @ 100 mls/hr IV CONTINUOUS PRN PRN Reason: THIS MED IS NOT "PRN" Stop: 08/08/18 22:57 Last Infusion: 07/12/18 17:56 Dose: 0 mls/hr Insulin Human Lispro (Humalog Insulin 100 Unit/1 Ml 3 Ml Vial) 0 - 12 unit SUBCUT ACHSP PRN; Protocol PRN Reason: PER PROTOCOL Stop: 08/08/18 23:49 Ipratropium Roosevelt (Atrovent 0.02% Neb 0.5 Mg/2.5 Ml Ampul) 0.5 mg NEB RTQ8 [facility] Stop: 08/10/18 00:00 Last Admin: 07/13/18 09:45 Dose: 0.5 mg Levalbuterol HCl (Xopenex Neb 1.25 Mg/3 Ml Ampul) 1.25 mg NEB RTQ8 [facility] Stop: 08/10/18 00:00 Last Admin: 07/13/18 09:45 Dose: 1.25 mg Morphine Sulfate (Ms-Contin Sr 30 Mg Tablet) 60 mg PO Q12 [facility] Stop: 07/18/18 21:59 Last Admin: 07/12/18 23:11 Dose: 60 mg Morphine Sulfate (Morphine 10 Mg/Ml Inj) 3 mg IV Q2HP PRN PRN Reason: FOR PAIN SCALE 1-2 Stop: 07/17/18 17:15 Morphine Sulfate (Morphine 10 Mg/Ml Inj) 4 mg IV Q2HP PRN PRN Reason: FOR PAIN SCALE 3-4 Stop: 07/17/18 17:15 Morphine Sulfate (Morphine 10 Mg/Ml Inj) 5 mg IV Q2HP PRN PRN Reason: PAIN SCALE OF 5 Stop: 07/17/18 17:15 Promethazine HCl (Phenergan 25 Mg Tablet) 25 mg PO Q4HP PRN PRN Reason: FOR NAUSEA/VOMITING Stop: 08/08/18 22:57 Promethazine HCl (Phenergan Inj 25 Mg/1 Ml Vial) 25 mg IV Q4HP PRN PRN Reason: FOR NAUSEA/VOMITING Stop: 08/08/18 22:57 Sodium Chloride (Saline Flush 2.5 Ml Monoject Prefil Syrin) 2.5 ml IV Q8 [facility] Stop: 08/09/18 05:59 Last Admin: 07/13/18 06:03 Dose: Not Given Temazepam (Restoril 15 Mg Capsule) 15 mg PO HSP PRN PRN Reason: SLEEP OR INSOMNIA Stop: 07/16/18 22:57 - Allergies Allergies/Adverse Reactions: nystatin [Nystatin] Allergy (Verified 07/21/11 22:09) Hospital Course Hospital Course: Admitting hospitalist's H&P: NELY WILLARD is a 73 year old male with medical history remarkable for 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 He was admitted in January in [facility] and was critically ill and was found with a lumbar abscess and psoas abscess, patient is currently following with infectious diseases who placed him on p.o. daptomycin and doxycycline as he had a remnant psoas abscess, he stopped taking his medications a month ago as he did not refill them. Comes with persistent lower back pain since last Wednesday that has been worsening by been up to 10/10 in intensity today, he was unable to move secondary to excruciating pain, this is radiated to his lower abdomen, right groin and right leg. Patient has history of chronic back pain but never any pain light disease and he had a nerve block to 4 years ago, patient is most of the time wheelchair bound but is able to walk with a walker. Patient also had chills and a fever of 101.2. Course: CT of the lumbar spine showed L4/L5 osteomyelitis with phlegmon in the surrounding musculature. He was started on Daptomycin and doxycyline. ID was also consulted. He continues to have fever and worsening back pain. He says he has chronic on and off numbness of the left foot which he says is more prominent today. On neuro exam, no sensory or motor deficit is noticeable. Surgery and orthopedics were also consulted but both services do not do spine related surgical interventions hence patient will be transferred to [facility] for possible surgical intervention of above findings. Discussed case with Dr. Starks (resident) staffing with Dr. Beckwith (attending) who accepted the transfer. Physical Exam Vital Signs: Temp Pulse Resp BP Pulse Ox 99.8 F 99 24 H 156/60 H 92 07/13/18 08:11 07/13/18 08:11 07/13/18 08:11 07/13/18 08:11 12/05/18 08:11 Intake & Output 07/12/18 07/13/18 07/14/18 06:59 06:59 06:59 Intake Total 2843 2352 Output Total 1170 850 Balance 1673 1502 Weight 212 lb 1.355 oz 212 lb 1.355 oz General appearance: PRESENT: no acute distress, well-developed, well-nourished Head exam: PRESENT: atraumatic, normocephalic Eye exam: PRESENT: conjunctiva pink, EOMI, PERRLA. ABSENT: scleral icterus Ear exam: PRESENT: normal external ear exam Mouth exam: PRESENT: moist, tongue midline Neck exam: ABSENT: carotid bruit, JVD, lymphadenopathy, thyromegaly Respiratory exam: PRESENT: clear to auscultation kimmie. ABSENT: rales, rhonchi, wheezes Cardiovascular exam: PRESENT: RRR. ABSENT: diastolic murmur, rubs, systolic murmur Pulses: PRESENT: normal dorsalis pedis pul GI/Abdominal exam: PRESENT: normal bowel sounds, soft. ABSENT: distended, guarding, mass, organolmegaly, rebound, tenderness Rectal exam: PRESENT: deferred Neurological exam: PRESENT: alert, awake, oriented to person, oriented to place , oriented to time, other - no Kernig, Brudzinski signs or nuchal rigidity. ABSENT: motor sensory deficit Results Laboratory Results: 07/13/18 05:32 07/13/18 05:32 07/13/18 07/13/18 05:32 05:32 WBC 12.1 H RBC 3.00 L Hgb 10.0 L Hct 29.3 L MCV 98 H MCH 33.3 MCHC 34.0 RDW 13.9 Plt Count 336 Seg Neutrophils % 76.9 Lymphocytes % 8.7 L Monocytes % 7.7 Eosinophils % 6.2 H Basophils % 0.5 Absolute Neutrophils 9.3 H Absolute Lymphocytes 1.0 Absolute Monocytes 0.9 Absolute Eosinophils 0.7 H Absolute Basophils 0.1 Sodium 144.5 Potassium 3.4 L Chloride 112 H Carbon Dioxide 22 Anion Gap 11 BUN 18 Creatinine 0.90 Est GFR ( Amer) > 60 Est GFR (Non-Af Amer) > 60 Glucose 103 Calcium 9.0 Magnesium 2.1 Impressions: Chest X-Ray 07/09/18 00:00 IMPRESSION: No acute disease. Lumbar Spine CT 07/09/18 00:00 IMPRESSION: Findings consistent with osteomyelitis discitis at the L4/L5 level with surrounding inflammatory change and phlegmon in the paraspinal musculature and extending into the right neural foramen. No discrete or defined abscess. Diffuse/multilevel degenerative change, similar to the prior MRI. TECHNICAL DOCUMENTATION: Quality ID # [id number]: Final reports with documentation of one or more dose reduction techniques (e.g., Automated exposure control, adjustment of the mA and/or kV according to patient size, use of iterative reconstruction technique) copyright 2011 [employer]- All Rights Reserved
[2018-07-13] MEDS: MORPHINE SULFATE SR 30 MG TABLET PO SCH (10:17)
[2018-07-13] MEDS: DAPTOMYCIN 500 MG in NORMAL SALINE 50 ML IV SCH (10:18)
[2018-07-13 16:28] VITALS: BP 166/64
--- NOTE | 2018-07-14 09:31 | EKG REPORT ---
SEVERITY:- ABNORMAL ECG - SINUS TACHYCARDIA VENTRICULAR PREMATURE COMPLEX RIGHT BUNDLE BRANCH BLOCK : Confirmed by: Marilyn Pereira 14-Jul-2018 09:30:48
== END 2018-07-13 17:00 | disposition short-term general hospital (02) | DRG 540 ==
LOC: ER 15:31 → EH 23:01 → 4S 07-10 01:41
PROVIDERS: ADMIT Internal Medicine; ATTEND Internal Medicine
DX: M46.26 Osteomyelitis of vertebra, lumbar region (principal); M60.08 Infective myositis, other site; I25.10 Atherosclerotic heart disease of native coronary artery without angina pectoris; I11.0 Hypertensive heart disease with heart failure; I50.9 Heart failure, unspecified; I25.2 Old myocardial infarction; E78.5 Hyperlipidemia, unspecified; M54.5 Low back pain; K44.9 Diaphragmatic hernia without obstruction or gangrene; J43.9 Emphysema, unspecified; R20.0 Anesthesia of skin; E11.9 Type 2 diabetes mellitus without complications; G89.29 Other chronic pain; M19.90 Unspecified osteoarthritis, unspecified site; F32.9 Major depressive disorder, single episode, unspecified; Z86.14 Personal history of Methicillin resistant Staphylococcus aureus infection; Z95.0 Presence of cardiac pacemaker; Z87.891 Personal history of nicotine dependence; Z82.49 Family history of ischemic heart disease and other diseases of the circulatory system; Z79.4 Long term (current) use of insulin
CPT/HCPCS: 36415; 71046; 72132; 80048; 80053; 80061; 80307; 81001; 82962; 83036; 83605; 83735; 84100; 84439; 84443; 84481; 84484; 85025; 85610; 85730; 87040; 87086; 87804; 93005; 93010; 94640; 96365; 96375; 99285; J0692; J0878; J1170; J2543; J3370; J3490; J7030; J7040; J7620